=== PATIENT | female | born 1995 | race African-American/Black ===

== ENCOUNTER 2016-09-30 14:56 | Emergency (ER) | payer OTHER ==
[2016-09-30 15:05] VITALS: TEMP 102.8; BMI 24.7
--- NOTE | 2016-09-30 15:07 | PDOC ---
Rapid Medical Evaluation Chief Complaint: Headache Time Seen by Provider: 09/30/16 14:58 Medical Evaluation: Allergies Allergy/AdvReac Type Severity Reaction Status Date / Time No Known Allergies Allergy Verified 04/10/16 14:49 09/30/16 15:01 RME Note: I have performed a brief, in-person evaluation of this patient . This patient presents with CC: headache with nausea; x 1day; similar episodes with Blood clot in head x 1 year agho Pertinent PE findings are: 102.8 fever I have ordered: strep, influenza The patient will proceed to ED for further evaluation.
[2016-09-30 15:47] LABS: MCH 25.8 pg (25.7-33.7); MCHC 33.2 g/dl (32.0-36.0); MEAN CELL VOLUME 77.8 fl (80-96); MEAN PLT VOLUME 8.9 fl (7.5-11.1); NEUTROPHILS 89.7 % (42.8-82.8); PLATELET COUNT 250 K/MM3 (134-434); RDW 16.5 % (11.6-15.6); WHITE BLOOD COUNT 8.3 K/mm3 (4.0-10.0)
[2016-09-30] MEDS ORDERED: SODIUM CHLORIDE 1,000 ML IV STA ×2 (15:50→17:48)
[2016-09-30] MEDS ORDERED: ACETAMINOPHEN 1000 MG/100 ML VIAL (NON FORMULARY) IVPB ONE (15:50)
[2016-09-30] MEDS ORDERED: ACETAMINOPHEN INJECTION 100 ML IVPB ONE (16:02)
[2016-09-30 16:09] LABS: INR 1.23 (0.82-1.09); PROTHROMBIN TIME (PATIENT) 13.6 SEC (9.98-11.88)
[2016-09-30 16:11] LABS: ACTIVATED PTT 30.5 SECONDS (26.9-34.4); ALK PHOS 74 U/L (45-117)
--- NOTE | 2016-09-30 16:32 | PDOC ---
History of Present Illness - General History Source: Patient Exam Limitations: No Limitations - History of Present Illness Initial Comments: 09/30/16 16:27 21-year-old female presents to the ED with complaints of right flank pain yesterday now followed by a frontal headache and fever today. Patient also complaining of sore throat myalgia, and decreased appetite. Patient states 2 weeks ago took [id number] medication for urinary complaints and assumed that symptoms resolved but unsure since she's been having urinary frequency with suprapubic pressure. Patient also states was on blood thinners a few years ago secondary to a blood clot in her head which resolved with blood thinner. Timing/Duration: reports: constant Severity: Yes: moderate Presenting Symptoms: Yes: fever, sore throat, headache <Vickie Solis - Last Filed: 09/30/16 18:45> <Raleigh Westbrook - Last Filed: 09/30/16 19:13> - General Chief Complaint: Headache Stated Complaint: NAUSEA, FEVER, HEADACHE Time Seen by Provider: 09/30/16 14:58 Past History - Past History General Medical History: Yes: no pertinent history Immunization Status Up to Date: Yes - Social History Lives With: parents Smoking History: No Smoking Status: Never smoked Number of Cigarettes Smoked Per Day: 0 Drug Use: none <Vickie Solis - Last Filed: 09/30/16 18:45> <Raleigh Westbrook - Last Filed: 09/30/16 19:13> - Past History Allergies/Adverse Reactions: Allergies No Known Allergies Allergy (Verified 09/30/16 15:05) Home Medications: Ambulatory Orders Sulfamethoxazole/Trimethoprim [Bactrim Ds -] 1 tab PO BID #14 tablet 09/30/16 Review of Systems - Review of Systems Able to Perform ROS?: Yes Constitutional: Yes: Chills, Fever HEENTM: Yes: Throat Pain Respiratory: No: Symptoms reported Cardiac (ROS): No: Symptoms Reported ABD/GI: No: Symptoms Reported : Yes: Dysuria, Flank Pain Musculoskeletal: Yes: Joint Pain, Muscle Pain Integumentary: No: Symptoms Reported Neurological: Yes: Headache (frontal) <Vickie Solis - Last Filed: 09/30/16 18:45> *Physical Exam - Vital Signs Last Vital Signs Temp Pulse Resp BP Pulse Ox 102.8 F H 18 L 17 133/80 98 09/30/16 15:00 09/30/16 15:00 09/30/16 15:00 09/30/16 15:00 09/30/16 15:00 - Physical Exam General Appearance: Yes: Nourished, Appropriately Dressed. No: Apparent Distress HEENT: positive: EOMI, OSCAR, TMs Normal, Pharynx Normal. negative: Pale Conjunctivae Neck: positive: Normal Thyroid, Supple. negative: Tender, Decreased range of motion, Rigidity Respiratory/Chest: positive: Lungs Clear, Normal Breath Sounds. negative: Respiratory Distress, Accessory Muscle Use Cardiovascular: positive: Regular Rhythm, Tachycardia. negative: Murmur Gastrointestinal/Abdominal: positive: Soft, Tenderness (flank right) Musculoskeletal: positive: CVA Tenderness (R) ( I'll) Integumentary: positive: Normal Color, Warm, Moist Neurologic: positive: Normal Mood/Affect, Motor Strength 5/5 (ambulatory) <Vickie Solis - Last Filed: 09/30/16 18:45> - Vital Signs Last Vital Signs Temp Pulse Resp BP Pulse Ox 102.8 F H 110 H 18 142/92 100 09/30/16 15:00 09/30/16 17:46 09/30/16 17:46 09/30/16 17:46 09/30/16 17:46 <Raleigh Westbrook - Last Filed: 09/30/16 19:13> ED Treatment Course - LABORATORY CBC & Chemistry Diagram: 09/30/16 15:40 09/30/16 15:40 - ADDITIONAL ORDERS Additional order review: 09/30/16 15:40 Group A Strep Rapid Antigen - Final Throat 09/30/16 15:40 RBC 5.07 D MCV 77.8 L MCHC 33.2 RDW 16.5 H MPV 8.9 Neutrophils % 89.7 H Lymphocytes % 5.7 L D Monocytes % 4.6 Eosinophils % 0.0 Basophils % 0.0 - Medications Given in the ED: ED Medications Discontinued Medications Generic Name Dose Route Start Last Admin Trade Name Jeffq PRN Reason Stop Dose Admin Acetaminophen 1,000 mg 09/30/16 15:50 09/30/16 16:10 Ofirmev Injection - IVPB 09/30/16 15:51 1,000 mg ONCE ONE Administration <Vickie Solis - Last Filed: 09/30/16 18:45> - LABORATORY CBC & Chemistry Diagram: 09/30/16 15:40 09/30/16 15:40 - ADDITIONAL ORDERS Additional order review: Laboratory Results 09/30/16 09/30/16 09/30/16 16:10 15:40 15:40 INR PTT (Actin FS) Sodium 139 Potassium 3.6 Chloride 103 Carbon Dioxide 27 Anion Gap 9 BUN 8 D Creatinine 0.9 D Creat Clearance w eGFR > 60 Random Glucose 83 D Lactic Acid 1.144 Calcium 9.1 Total Bilirubin 2.0 H D AST 12 L D ALT 17 D Alkaline Phosphatase 74 D Total Protein 8.2 D Albumin 4.2 D Urine Color Dkyellow Urine Appearance Cloudy Urine pH 5.0 Ur Specific [place] 1.015 Urine Protein Negative Urine Glucose (UA) Negative Urine Ketones Negative Urine Blood 2+ H Urine Nitrite Positive Urine Bilirubin Negative Urine Urobilinogen Negative Ur Leukocyte Esterase 1+ H Urine RBC 80 Urine WBC 70 Ur Epithelial Cells Moderate Urine Bacteria Rare Urine Mucus Rare Urine HCG, Qual Negative 09/30/16 15:40 INR 1.23 H PTT (Actin FS) 30.5 Sodium Potassium Chloride Carbon Dioxide Anion Gap BUN Creatinine Creat Clearance w eGFR Random Glucose Lactic Acid Calcium Total Bilirubin AST ALT Alkaline Phosphatase Total Protein Albumin Urine Color Urine Appearance Urine pH Ur Specific [place] Urine Protein Urine Glucose (UA) Urine Ketones Urine Blood Urine Nitrite Urine Bilirubin Urine Urobilinogen Ur Leukocyte Esterase Urine RBC Urine WBC Ur Epithelial Cells Urine Bacteria Urine Mucus Urine HCG, Qual 09/30/16 15:40 Influenza Types A,B Antigen (PARMINDER) - Final Nasopharyngeal Swab - Final 09/30/16 15:40 Group A Strep Rapid Antigen - Final Throat 09/30/16 15:40 RBC 5.07 D MCV 77.8 L MCHC 33.2 RDW 16.5 H MPV 8.9 Neutrophils % 89.7 H Lymphocytes % 5.7 L D Monocytes % 4.6 Eosinophils % 0.0 Basophils % 0.0 - Medications Given in the ED: ED Medications Discontinued Medications Generic Name Dose Route Start Last Admin Trade Name Freq PRN Reason Stop Dose Admin Acetaminophen 1,000 mg 09/30/16 15:50 09/30/16 16:10 Ofirmev Injection - IVPB 09/30/16 15:51 1,000 mg ONCE ONE Administration Sodium Chloride 1,000 mls @ 1,000 mls/hr 09/30/16 15:50 09/30/16 16:10 Normal Saline - IV 09/30/16 16:49 1,000 mls/hr ASDIR STA Administration Sodium Chloride 1,000 mls @ 1,000 mls/hr 09/30/16 17:48 09/30/16 17:54 Normal Saline - IV 09/30/16 18:47 1,000 mls/hr ASDIR STA Administration Ibuprofen 600 mg 09/30/16 17:47 09/30/16 17:54 Motrin - PO 09/30/16 17:48 600 mg ONCE ONE Administration <GabRaleigh godinez - Last Filed: 09/30/16 19:13> Medical Decision Making - Medical Decision Making 09/30/16 16:33 Patient with complaints of frontal headache, flank pain, dysuria, and fever since yesterday. Patient on exam had no acute findings except for old right flank and right CVA pain. Patient in for labs, urine, rapid strep and influenza testing. Patient also ordered for IV Tylenol and IV fluids. 09/30/16 18:22 Laboratory Tests 09/30/16 09/30/16 09/30/16 15:40 15:40 15:40 WBC 8.3 D Hgb 13.1 D Hct 39.4 D Neutrophils % 89.7 H Monocytes % 4.6 INR 1.23 H Sodium 139 Potassium 3.6 Chloride 103 Carbon Dioxide 27 Anion Gap 9 BUN 8 D Creatinine 0.9 D Creat Clearance w eGFR > 60 Random Glucose 83 D Lactic Acid Calcium 9.1 Total Bilirubin 2.0 H D AST 12 L D Albumin 4.2 D Urine Color Urine Appearance Urine pH Ur Specific [place] Urine Protein Urine Glucose (UA) Urine Ketones Urine Blood Urine Nitrite Urine Bilirubin Ur Leukocyte Esterase Urine HCG, Qual 09/30/16 09/30/16 15:40 16:10 WBC Hgb Hct Neutrophils % Monocytes % INR Sodium Potassium Chloride Carbon Dioxide Anion Gap BUN Creatinine Creat Clearance w eGFR Random Glucose Lactic Acid 1.144 Calcium Total Bilirubin AST Albumin Urine Color Pending Urine Appearance Pending Urine pH Pending Ur Specific [place] Pending Urine Protein Pending Urine Glucose (UA) Pending Urine Ketones Pending Urine Blood Pending Urine Nitrite Pending Urine Bilirubin Pending Ur Leukocyte Esterase Pending Urine HCG, Qual Negative Rapid strep negative, influenza negative. Urine pending. Patient states feeling much better. Patient's repeat temperature an hour ago was 100.0. Patient ordered for a second bag of IV fluid and 600 mg of Motrin. 09/30/16 18:44 Laboratory Tests 09/30/16 15:40 Urine Nitrite Positive Ur Leukocyte Esterase 1+ H 09/30/16 18:45 Patient had sensitivity to Bactrim secondary to proteus Mirabilis noted in 2012. Patient will be given Bactrim for treatment of pyelonephritis. awaiting repeat vitals <Vickie Solis - Last Filed: 09/30/16 18:45> *DC/Admit/Observation/Transfer <Vickie Solis - Last Filed: 09/30/16 18:45> <Raleigh Westbrook - Last Filed: 09/30/16 19:13> Diagnosis at time of Disposition: Fever and chills, Pyelonephritis - Discharge Dispostion Disposition: HOME Condition at time of disposition: Good - Prescriptions Prescriptions: Sulfamethoxazole/Trimethoprim [Bactrim Ds -] 1 tab PO BID #14 tablet - Patient Instructions Printed Discharge Instructions: DI for Kidney Infection Additional Instructions: Please take Bactrim as prescribed until completed. Please drink plenty of fluids. Please follow-up with your primary care physician as needed . otherwise return to ED if symptoms worsen
[2016-09-30 16:36] LABS: CREATININE 0.9 mg/dL (0.55-1.02); GLUCOSE,RANDOM 83 mg/dL (74-106)
[2016-09-30 16:37] LABS: ANION GAP 9 (8-16); CALCIUM 9.1 mg/dL (8.5-10.1); CO2 27 mmol/L (21-32); TOT PROT 8.2 g/dl (6.4-8.2)
[2016-09-30 16:38] LABS: ALBUMIN 4.2 g/dl (3.4-5.0); SGOT/AST 12 U/L (15-37); SGPT/ALT 17 U/L (12-78)
[2016-09-30 17:47] VITALS: BP 142/92
[2016-09-30] MEDS ORDERED: IBUPROFEN 600 MG TABLET (FP) PO ONE ×2 (17:47→17:50)
[2016-09-30 18:38] LABS: URINE APPEARANCE CLOUDY; URINE BILIRUBIN NEGATIVE (NEGATIVE); URINE COLOR DKYELLOW; URINE GLUCOSE (UA) NEGATIVE (NEGATIVE); URINE KETONE NEGATIVE (NEGATIVE); URINE NITRITE POSITIVE (NEGATIVE); URINE PROTEIN NEGATIVE (NEGATIVE); URINE UROBILINOGEN NEGATIVE E.U./dl (0.2-1.0)
[2016-09-30 18:42] LABS: URINE BLOOD 2+ (NEGATIVE); URINE LEUK ESTERASE 1+ (NEGATIVE)
[2016-09-30 18:53] LABS: URINE BACTERIA RARE /hpf (NONE SEEN); URINE MUCUS RARE; URINE RBC 80 /hpf (0-3); URINE WBC 70 /hpf (3-5)
[2016-09-30 19:55] VITALS: PULSE 92
== END 2016-09-30 19:55 | disposition home or self-care (01) ==
LOC: JER 14:56
PROC: 3E0337Z Introduction of Electrolytic and Water Balance Substance into Peripheral Vein, Percutaneous Approach (ICD-10-PCS; principal; 2016-09-30)
PROC: 3E033NZ Introduction of Analgesics, Hypnotics, Sedatives into Peripheral Vein, Percutaneous Approach (ICD-10-PCS; 2016-09-30)
DX: N10 Acute pyelonephritis (principal)
CPT/HCPCS: 36415; 80053; 81003; 81015; 83605; 84703; 85025; 85610; 85730; 87070; 87430; 87804; 99284-25

== ENCOUNTER 2017-06-15 19:32 | Emergency (ER) | payer OTHER ==
[2017-06-15 19:55] VITALS: TEMP 99.1; BMI 27.1
--- NOTE | 2017-06-15 19:56 | PDOC ---
Rapid Medical Evaluation Chief Complaint: Nausea/Vomiting Time Seen by Provider: 06/15/17 19:49 Medical Evaluation: Allergies Allergy/AdvReac Type Severity Reaction Status Date / Time No Known Allergies Allergy Verified 05/20/17 17:58 06/15/17 19:49 I have performed a brief in-person evaluation of this patient. The patient presents with a chief complaint of: 3 month w/ vomiting Pertinent physical exam findings: none. I have ordered the following: cbc, cmp, type & screen, urinalysis, Beta-Hcg, Urine culture. Trans vag Ultrasound The patient will proceed to the ED for further evaluation [id number] (1 set of twins).
[2017-06-15 20:12] LABS: BASOPHIL 0.2 % (0-2.0); MCH 26.2 pg (25.7-33.7); MEAN CELL VOLUME 79.3 fl (80-96); MEAN PLT VOLUME 8.3 fl (7.5-11.1); PLATELET COUNT 267 K/MM3 (134-434); RDW 14.3 % (11.6-15.6); WHITE BLOOD COUNT 10.5 K/mm3 (4.0-10.0)
[2017-06-15 20:27] LABS: INR 1.1 (0.82-1.09); PROTHROMBIN TIME (PATIENT) 12.4 SEC (9.98-11.88)
[2017-06-15 20:35] LABS: ANION GAP 9 (8-16); BILIRUBIN,TOTAL 1.3 mg/dL (0.2-1.0); CALCIUM 9.1 mg/dL (8.5-10.1); CO2 25 mmol/L (21-32); CREATININE 0.7 mg/dL (0.55-1.02); GLUCOSE,RANDOM 79 mg/dL (74-106); SGOT/AST 11 U/L (15-37); SGPT/ALT 19 U/L (12-78); TOT PROT 8.7 g/dl (6.4-8.2)
[2017-06-15 20:37] LABS: ALK PHOS 68 U/L (45-117)
--- NOTE | 2017-06-15 22:08 | PDOC ---
History of Present Illness - General History Source: Patient Exam Limitations: No Limitations - History of Present Illness Initial Comments: 06/15/17 22:52 The patient is a 22 year old female who is currently 3 months , a0 ( one twin gestation) with a significant past medical history asthma and blood clot (brain)(was on blood thinners for a while but has since discontinued), who presents to the emergency department with abdominal pain, constipation, nausea and vomiting for the past 4 days. She describes her pain as ranging from mild to moderate, localized in the suprapubic region, without radiation. She notes that the pain is exacerbated when the area is palpated. She describes her vomit as nonbloody and nonbilious. The patient denies chest pain, shortness of breath, headache and dizziness. Denies fever or chills. Denies dysuria, frequency, urgency and hematuria. Allergies: None Past surgical history: None reported Social history: No alcohol, tobacco or drug use reported <Maxi Landrum - Last Filed: 06/16/17 01:53> <Ryan Douglas - Last Filed: 06/16/17 02:18> - General Chief Complaint: Nausea/Vomiting Stated Complaint: FATIGUE Time Seen by Provider: 06/15/17 19:49 Past History <Maxi Landrum - Last Filed: 06/16/17 01:53> - Past Medical History Asthma: Yes COPD: No - Reproductive History (#): 3 Para: 5 Cervical CA: No Dysfunctional Uterine Bleeding: No Ectopic : No Endometrial CA: No Polycystic Ovaries: No Therapeutic (s) & number: No (denies) Tubal Ligation: No - Immunization History Immunization Up to Date: Yes - Suicide/Smoking/Psychosocial Hx Smoking Status: No Smoking History: Never smoked Have you smoked in the past 12 months: No Number of Cigarettes Smoked Daily: 0 Information on smoking cessation initiated: No Hx Alcohol Use: No Drug/Substance Use Hx: No Substance Use Type: None Hx Substance Use Treatment: No <Ryan Douglas - Last Filed: 06/16/17 02:18> - Past Medical History Allergies/Adverse Reactions: Allergies Allergy/AdvReac Type Severity Reaction Status Date / Time No Known Allergies Allergy Verified 06/15/17 19:52 Home Medications: Ambulatory Orders Ondansetron [Zofran Odt -] 4 mg SL TID #21 od.tablet 06/16/17 Review of Systems - Review of Systems Able to Perform ROS?: Yes Comments:: 06/15/17 22:53 CONSTITUTIONAL: No fever, no chills, no fatigue EYES: No visual changes ENT: No ear pain, no sore throat CARDIOVASCULAR: No chest pain, no palpitations RESPIRATORY: No cough, no SOB GI: (+) Abdominal pain, nausea, vomiting, constipation. No diarrhea GENITOURINARY: No dysuria, no frequency, no hematuria MUSKULOSKELETAL: No backpain, no joint pain, no myalgias SKIN: No rash NEURO: No headache <Maxi Landrum - Last Filed: 06/16/17 01:53> *Physical Exam - Vital Signs Last Vital Signs Temp Pulse Resp BP Pulse Ox 99.1 F 114 H 20 136/101 100 06/15/17 19:52 06/15/17 19:52 06/15/17 19:52 06/15/17 19:52 06/15/17 19:52 - Physical Exam Comments: 06/15/17 22:53 CONSTITUTIONAL: Well-appearing; well-nourished; in no apparent distress HEAD: Normocephalic; atraumatic EYES: PERRL; EOM intact ENMT: External appears normal; normal oropharynx. (+) Dry Mucosa NECK: Supple; non-tender; no cervical lymphadenopathy CARD: Normal S1, S2; no murmurs, rubs, or gallops RESP: Normal chest excursion with respiration; breath sounds clear and equal bilaterally; no wheezes, rhonchi, or rales ABD: (+) Moderate epigastric tenderness to palpation, mild bilateral lower quadrant tenderness to palpation. Soft, non-distended; no palpable organomegaly , no palpable hernias EXT: Normal ROM in all four extremities; non-tender to palpation; distal pulses intact SKIN: Warm, dry, no rash NEURO: No focal neurological deficie <Maxi Landrum - Last Filed: 06/16/17 01:53> - Vital Signs Last Vital Signs Temp Pulse Resp BP Pulse Ox 99.1 F 114 H 20 136/101 100 06/15/17 19:52 06/15/17 19:52 06/15/17 19:52 06/15/17 19:52 06/15/17 19:52 <Misael,Boris - Last Filed: 06/16/17 02:18> ED Treatment Course - LABORATORY CBC & Chemistry Diagram: 06/15/17 20:00 06/15/17 20:00 - ADDITIONAL ORDERS Additional order review: Laboratory Results 06/15/17 06/15/17 06/15/17 22:11 20:00 20:00 PT with INR 12.40 H INR 1.10 Sodium Potassium Chloride Carbon Dioxide Anion Gap BUN Creatinine Creat Clearance w eGFR Random Glucose Calcium Total Bilirubin AST ALT Alkaline Phosphatase Total Protein Albumin Beta HCG, Quant Urine Color Yellow Urine Appearance Slcloudy Urine pH 5.0 Ur Specific [place] 1.028 Urine Protein 1+ H Urine Glucose (UA) Negative Urine Ketones 2+ H Urine Blood Negative Urine Nitrite Negative Urine Bilirubin Negative Urine Urobilinogen Negative Urine WBC (Auto) 10 Urine RBC (Auto) 1 Ur Epithelial Cells Rare Urine Bacteria Rare Urine Mucus Few Blood Type O POSITIVE Antibody Screen Negative 06/15/17 20:00 PT with INR INR Sodium 137 Potassium 3.7 Chloride 103 Carbon Dioxide 25 Anion Gap 9 BUN 8 Creatinine 0.7 D Creat Clearance w eGFR > 60 Random Glucose 79 Calcium 9.1 Total Bilirubin 1.3 H D AST 11 L ALT 19 Alkaline Phosphatase 68 Total Protein 8.7 H Albumin 4.0 Beta HCG, Quant 391177.9 Urine Color Urine Appearance Urine pH Ur Specific [place] Urine Protein Urine Glucose (UA) Urine Ketones Urine Blood Urine Nitrite Urine Bilirubin Urine Urobilinogen Urine WBC (Auto) Urine RBC (Auto) Ur Epithelial Cells Urine Bacteria Urine Mucus Blood Type Antibody Screen 06/15/17 20:00 RBC 4.88 MCV 79.3 L MCHC 33.0 RDW 14.3 D MPV 8.3 Neutrophils % 91.0 H Lymphocytes % 5.2 L Monocytes % 3.6 L Eosinophils % 0.0 Basophils % 0.2 D <Maxi Landrum - Last Filed: 06/16/17 01:53> - LABORATORY CBC & Chemistry Diagram: 06/15/17 20:00 06/15/17 20:00 - ADDITIONAL ORDERS Additional order review: Laboratory Results 06/15/17 06/15/17 06/15/17 20:00 20:00 20:00 PT with INR 12.40 H INR 1.10 Sodium 137 Potassium 3.7 Chloride 103 Carbon Dioxide 25 Anion Gap 9 BUN 8 Creatinine 0.7 D Creat Clearance w eGFR > 60 Random Glucose 79 Calcium 9.1 Total Bilirubin 1.3 H D AST 11 L ALT 19 Alkaline Phosphatase 68 Total Protein 8.7 H Albumin 4.0 Beta HCG, Quant 776077.9 Blood Type O POSITIVE Antibody Screen Negative 06/15/17 20:00 RBC 4.88 MCV 79.3 L MCHC 33.0 RDW 14.3 D MPV 8.3 Neutrophils % 91.0 H Lymphocytes % 5.2 L Monocytes % 3.6 L Eosinophils % 0.0 Basophils % 0.2 D <Ryan Douglas - Last Filed: 06/16/17 02:18> Progress Note - Progress Note Progress Note: The patient was able to tolerate PO intake (Water) at 1:45am <Maxi Landrum - Last Filed: 06/16/17 01:53> Medical Decision Making - Medical Decision Making 06/16/17 01:46 Patient is a 22-year-old female, 5 para 5, 12 weeks gestation who presents to the ER with numerous episodes of nonbloody, nonbilious vomiting and abdominal pain. Serial abdominal exams reveal left lower quadrant and suprapubic tenderness only. There is no tenderness at McBurney's point, psoas and obturator signs are negative. CBC is within normal limit. CMP reveals moderately low magnesium likely related to hyperemesis. Obstetric ultrasound reveals an IUP with FH and a small left corpus luteum cyst. Subchorionic hemorrhage is also noted. Patient is received IV fluids, H2 briana and antiemetic therapy with improvement in level of her symptoms. We'll continue to hydrate. Likely discharge. 06/16/17 02:16 pt mindi po liquids. i do not suspect acute appi. will d/c. <Ryan Douglas - Last Filed: 06/16/17 02:18> *DC/Admit/Observation/Transfer - Attestations Scribe Attestion: 06/15/17 22:53 Documentation prepared by Maxi Landrum, acting as medical imaging technologist for Ryan Douglas MD <Maxi Landrum - Last Filed: 06/16/17 01:53> - Attestations Physician Attestion: 06/16/17 01:46 The documentation was prepared by the scribe under my direct supervision. I have reviewed the documentation which correctly represents the findings, medical decision-making and critical action taken by me. <Ryan Douglas - Last Filed: 06/16/17 02:18> Diagnosis at time of Disposition: Vomiting during , Abdominal pain affecting - Discharge Dispostion Disposition: HOME Condition at time of disposition: Stable - Patient Instructions Printed Discharge Instructions: DI for Nausea -- Adult, DI for Vomiting -- Adult, DI for Abdominal Pain -- Early
[2017-06-15 22:22] LABS: URINE APPEARANCE SLCLOUDY; URINE BILIRUBIN NEGATIVE (NEGATIVE); URINE BLOOD NEGATIVE (NEGATIVE); URINE COLOR YELLOW; URINE GLUCOSE (UA) NEGATIVE (NEGATIVE); URINE KETONE 2+ (NEGATIVE); URINE NITRITE NEGATIVE (NEGATIVE); URINE UROBILINOGEN NEGATIVE mg/dL (0.2-1.0)
[2017-06-15] MEDS ORDERED: ONDANSETRON 4 MG/2 ML VIAL IVPB ONE (22:23)
[2017-06-15] MEDS ORDERED: FAMOTIDINE IV 20 MG/12 ML VIAL IVPB ONE (22:23)
[2017-06-15] MEDS ORDERED: DEXTROSE 5%-NORMAL SALINE 1,000 ML IV SCH (22:30)
[2017-06-15 22:34] LABS: URINE PROTEIN 1+ (NEGATIVE)
[2017-06-15 22:44] LABS: URINE BACTERIA RARE /hpf (NONE SEEN); URINE MUCUS FEW; URINE RBC 1 /hpf (0-3); URINE WBC 10 /hpf (3-5)
[2017-06-15] MEDS ORDERED: ONDANSETRON 4 MG/2 ML VIAL ONE (23:21)
[2017-06-15] MEDS ORDERED: FAMOTIDINE 20 MG/50 ML IVPB 20 MG/50 ML MG IVPB ONE (23:21)
[2017-06-16] MEDS ORDERED: MAGNESIUM SULF 50% (8.12 MEQ/2 ML-1 GM VIAL) IVPB ONE (00:16)
[2017-06-16] MEDS ORDERED: ACETAMINOPHEN 325 MG TABLET (FP) PO ONE (01:45)
[2017-06-16] MEDS ORDERED: DEXTROSE 5%-WATER - 1,000 ML IV SCH (02:00)
[2017-06-16 02:54] VITALS: BP 116/62; PULSE 91
[2017-06-16] MEDS ORDERED: ACETAMINOPHEN 325 MG TABLET (FP) ONE (03:10)
[2017-06-16] MEDS ORDERED: METOCLOPRAMIDE HCL INJECTION 10 MG/2 ML VIAL IVPUSH ONE (04:11)
[2017-06-16] MEDS ORDERED: TRIMETHOBENZAMIDE HCL 300 MG CAPSULE PO ONE (05:42)
[2017-06-16 13:20] LABS: URINE LEUK ESTERASE Negative (NEGATIVE)
== END 2017-06-16 06:36 | disposition home or self-care (01) ==
LOC: JER 19:32
PROC: 3E0337Z Introduction of Electrolytic and Water Balance Substance into Peripheral Vein, Percutaneous Approach (ICD-10-PCS; principal; 2017-06-15)
PROC: 3E033GC Introduction of Other Therapeutic Substance into Peripheral Vein, Percutaneous Approach (ICD-10-PCS; 2017-06-15)
PROC: 3E033GC Introduction of Other Therapeutic Substance into Peripheral Vein, Percutaneous Approach (ICD-10-PCS; 2017-06-15)
DX: O26.891 Other specified pregnancy related conditions, first trimester (principal); O21.0 Mild hyperemesis gravidarum; Z3A.12 12 weeks gestation of pregnancy
CPT/HCPCS: 36415; 76801-TC; 80053; 81003; 81015; 83735; 84702; 85025; 85610; 86850; 86900; 86901; 87086; 99284-25

== ENCOUNTER 2017-08-03 23:37 | Emergency (ER) | payer OTHER ==
[2017-08-04 00:06] VITALS: BP 111/71; PULSE 89; TEMP 98.2; BMI 23.0
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
[2017-08-04 03:07] LABS: URINE APPEARANCE CLEAR; URINE BILIRUBIN NEGATIVE (NEGATIVE); URINE BLOOD NEGATIVE (NEGATIVE); URINE COLOR YELLOW; URINE GLUCOSE (UA) NEGATIVE (NEGATIVE); URINE KETONE 2+ (NEGATIVE); URINE NITRITE NEGATIVE (NEGATIVE); URINE PROTEIN TRACE (NEGATIVE); URINE UROBILINOGEN 0.2 mg/dL (0.2-1.0)
[2017-08-04 03:36] LABS: URINE LEUK ESTERASE TRACE (NEGATIVE)
[2017-08-04 03:43] LABS: URINE BACTERIA FEW /hpf (NONE SEEN)
[2017-08-04 04:06] LABS: EPI CELLS MODERATE /HPF (FEW)
== END 2017-08-04 03:53 | disposition home or self-care (01) ==
LOC: JER 23:37
DX: O26.892 Other specified pregnancy related conditions, second trimester (principal); O44.52 Low lying placenta with hemorrhage, second trimester; Z3A.16 16 weeks gestation of pregnancy; Y04.2XXA Assault by strike against or bumped into by another person, initial encounter; Y93.89 Activity, other specified; Y92.89 Other specified places as the place of occurrence of the external cause; Y07.9 Unspecified perpetrator of maltreatment and neglect
CPT/HCPCS: 76801-TC; 81003; 81015; 87086; 99281-25

== ENCOUNTER 2017-11-28 13:00 | Inpatient (IN) | payer OTHER ==
[2017-11-28] MEDS ORDERED: AMPICILLIN SODIUM 2 GM VIAL ONE (13:43)
[2017-11-28 14:06] LABS: URINE APPEARANCE CLEAR; URINE BILIRUBIN NEGATIVE (<2.0 mg/dL); URINE BLOOD NEGATIVE (NEGATIVE); URINE COLOR YELLOW; URINE GLUCOSE (UA) NEGATIVE (NEGATIVE); URINE KETONE 1+ (NEGATIVE); URINE NITRITE NEGATIVE (NEGATIVE); URINE PROTEIN NEGATIVE (NEGATIVE)
[2017-11-28 14:22] LABS: URINE LEUK ESTERASE 1+ (NEGATIVE)
[2017-11-28 14:23] LABS: EPI CELLS RARE /HPF (FEW); URINE BACTERIA RARE /hpf (NONE SEEN); URINE MUCUS RARE
[2017-11-28 14:24] LABS: EOS % 0.1 % (0-4.5); HEMATOCRIT 35.9 % (32.4-45.2); HEMOGLOBIN 11.9 GM/dL (10.7-15.3); LYMPH % 5.8 % (8-40); MCH 27.1 pg (25.7-33.7); MEAN CELL VOLUME 81.9 fl (80-96); MEAN PLT VOLUME 9.3 fl (7.5-11.1); MONO % 4.6 % (3.8-10.2); NEUT % 89.5 % (42.8-82.8); PLATELET COUNT 178 K/MM3 (134-434); RBC 4.39 M/mm3 (3.60-5.2); RDW 14.6 % (11.6-15.6); WHITE BLOOD COUNT 8.3 K/mm3 (4.0-10.0)
[2017-11-28 14:35] VITALS: BMI 32.9
[2017-11-28 14:43] LABS: INR 0.98 (0.82-1.09); PROTHROMBIN TIME (PATIENT) 11.1 SEC (9.7-13.0)
[2017-11-28] MEDS ORDERED: IBUPROFEN 800 MG/8 ML IJ IVPB PRN (14:43)
[2017-11-28] MEDS ORDERED: oxyCODONE HCL 5 MG TABLET PO PRN (14:43)
[2017-11-28] MEDS ORDERED: SENNOSIDES/DOCUSATE COMBO (SENNA PLUS) TABLET (UD) PO PRN (14:43)
[2017-11-28] MEDS ORDERED: METHYLERGONOVINE MALEATE 0.2 MG/1 ML AMP IM PRN (14:43)
--- NOTE | 2017-11-28 14:43 | HP ---
Past Medical History - Admission Chief Complaint: leaking fluid, contractions History of Present Illness: 22 y/o female with h/o X 3 and h/o X 1 at 27 weeks for twins who presents today with complaints of leaking fluid and pt having contractions upon admission. Pt has a history of non comlpiance with care. Denies any VB. +FM. History Source: Patient, Medical Record Limitations to Obtaining History: No Limitations - Past Medical History Cardiovascular: No: HTN Pulmonary: No: Asthma, COPD Hepatobiliary: No: Hepatitis B, Hepatitis C ...: 5 ...Para: 5 ...Term: 4 ...: 1 ...Spon : 0 ...Induced : 0 ...Multiple Gestation: 0 ...EDC by Tonyo: 01/04/18 Additional OB History: h/o c section at 27 weeks for twins Heme/Onc: Yes: Anemia Infectious Disease: No: HIV, MRSA Endocrine: No: Diabetes Mellitus - Past Surgical History Past Surgical History: Yes: Hx Myomectomy: No Hx Transabdominal Cerclage: No - Smoking History Smoking history: Never smoked Have you smoked in the past 12 months: No Aproximately how many cigarettes per day: 0 - Alcohol/Substance Use Hx Alcohol Use: No - Social History Usual Living Arrangement: Yes: With Significant Other History of Recent Travel: No Home Medications - Allergies Allergies/Adverse Reactions: Allergies Allergy/AdvReac Type Severity Reaction Status Date / Time No Known Allergies Allergy Verified 11/28/17 14:42 - Home Medications Home Medications: Ambulatory Orders Ferrous Sulfate 325 mg PO DAILY 10/20/17 Vit Calc,Iron,Folic [ Vitamins] 1 each PO DAILY 10/20/17 Ibuprofen [Motrin -] 600 mg PO QID PRN #28 tablet 11/30/17 Oxycodone HCl/Acetaminophen [Percocet 5-325 mg Tablet -] 1 tab PO Q4H #20 tablet MDD 6 11/30/17 Review of Systems - Review of Systems Constitutional: reports: No Symptoms Eyes: reports: No Symptoms HENT: reports: No Symptoms Neck: reports: No Symptoms Cardiovascular: reports: No Symptoms Respiratory: reports: No Symptoms Gastrointestinal: reports: No Symptoms Genitourinary: reports: No Symptoms Breasts: reports: No Symptoms Reported Musculoskeletal: reports: No Symptoms Integumentary: reports: No Symptoms Neurological: reports: No Symptoms Endocrine: reports: No Symptoms Hematology/Lymphatic: reports: No Symptoms Psychiatric: reports: No Symptoms Physical Exam - Maternity Vital Signs: Vital Signs Temperature 98.1 F 11/28/17 14:11 Pulse Rate 102 H 11/28/17 14:11 Respiratory Rate 18 11/28/17 14:11 Blood Pressure 137/68 11/28/17 14:11 O2 Sat by Pulse Oximetry (%) Constitutional: Yes: Well Nourished, No Distress, Calm Eyes: Yes: Conjunctiva Clear, EOM Intact HENT: Yes: Atraumatic, Normocephalic Neck: Yes: Supple, Trachea Midline Cardiovascular: Yes: Regular Rate and Rhythm Lungs: Clear to auscultation - Abdominal Exam/OB Number of Fetuses: Single Presentation: Vertex Contractions: Yes Regularity: Regular Heart Rate (range): 135 - Vaginal Exam/OB Vaginal Bleediing: No Dilatation (cm): 3 Amniotic Membrane Status: Ruptured Presentation: Vertex/Position - Labs Lab Results: CBC, BMP 11/28/17 13:55 Hemorrhage Risk Assessment - Risk Factors Medium Risk Factors: Yes: Prior , uterine surgery,or multiple laparotomies High Risk Factors: Yes: None Risk Score: 1 Risk Level: Medium Risk Problem List - Problems (1) delivery delivered Code(s): O82 - ENCOUNTER FOR DELIVERY WITHOUT INDICATION (2) labor in third trimester with delivery Code(s): O60.14X0 - LABOR THIRD TRI W DELIVERY THIRD TRI, UNSP Assessment/Plan previous c section in labor/SROM for repeat delivery discussed risks/benefits/alternatives including with pt pt agrees to repeat delivery possible history of "clot in brain?" - thought there was sinus venous thrombosis which seemed to be an "artifact" on imaging - unclear on prior imaging/history - will give lovenox post anesthesia/nursery aware
[2017-11-28 14:46] LABS: ACTIVATED PTT 27.2 SECONDS (26.9-34.4)
[2017-11-28] MEDS ORDERED: ONDANSETRON 4 MG/2 ML VIAL IVPUSH PRN (14:47)
[2017-11-28 14:49] LABS: ANION GAP 9 (8-16); BLOOD UREA NITROGEN 5 mg/dL (7-18); CALCIUM 8.3 mg/dL (8.5-10.1); CHLORIDE 106 mmol/L (98-107); CO2 24 mmol/L (21-32); CREATININE 0.5 mg/dL (0.55-1.02); GLUCOSE,RANDOM 65 mg/dL (74-106); POTASSIUM 3.6 mmol/L (3.5-5.1); SODIUM 139 mmol/L (136-145)
[2017-11-28] MEDS ORDERED: morphine SULFATE/Preservative Free 0.5 MG/ML (1cc Syringe) ONE (15:00)
[2017-11-28] MEDS ORDERED: ELECTROLYTE-148 SOLN 1,000 ML IV SCH (15:00)
[2017-11-28] MEDS ORDERED: OXYTOCIN 20 UNITS in 0.9% NS 20 UNIT/1,000 ML INFUS.BAG IV SCH (15:00)
[2017-11-28] MEDS ORDERED: CITRIC ACID/SODIUM CITRATE 30 ML UNIT-DOSE CUP PO ONE (15:00)
[2017-11-28] MEDS ORDERED: ePHEDrine SULFATE 50 MG/1 ML AMPULE ONE (15:01)
[2017-11-28] MEDS ORDERED: BUPIVACAINE 0.75% IN DEXTROSE/PF 2ML AMPULE NR ONE (15:04)
[2017-11-28] MEDS ORDERED: ceFAZolin SODIUM 1 GM VIAL ONE ×2 (15:21→20:48)
[2017-11-28] MEDS ORDERED: OXYTOCIN 10 UNITS/ML VIAL ONE (15:25)
[2017-11-28] MEDS ORDERED: OXYTOCIN 20 UNITS in 0.9% NS 20 UNIT/1,000 ML INFUS.BAG IV ONE (15:40)
[2017-11-28] MEDS ORDERED: MIDAZOLAM HCL 2 MG/2 ML SINGLE DOSE VIAL ONE (15:44)
--- NOTE | 2017-11-28 16:11 | OP ---
Operative Note - Note: Operative Date: 11/28/17 Pre-Operative Diagnosis: labor, PPROM, previous c section Operation: repeat LTCS Findings: normal b/l tubes and ovaries Post-Operative Diagnosis: Same as Pre-op Surgeon: Sammi Zhang Supervisor Yard: Bobby Knight Anesthesia: Spinal Specimens Removed: placenta Estimated Blood Loss (mls): 800 Operative Report Dictated: Yes
[2017-11-28] MEDS ORDERED: ACETAMINOPHEN 1000 MG/100 ML VIAL (NON FORMULARY) IVPB ONE ×3 (17:36→23:36)
[2017-11-28] MEDS ORDERED: ACETAMINOPHEN INJECTION 100 ML IVPB ONE (17:41)
[2017-11-28] MEDS ORDERED: TUBERCULIN PPD 5 TU/0.1ML SYRINGE (IN PATIENT USE ONLY) ID ONE (19:00)
[2017-11-28] MEDS ORDERED: DEXTROSE 5%-WATER - 50 ML IVPB ONE (20:48)
[2017-11-28 20:50] LABS: HEMATOCRIT 30.7 % (32.4-45.2); HEMOGLOBIN 10.1 GM/dL (10.7-15.3); LYMPH % 4.9 % (8-40); MEAN CELL VOLUME 81.6 fl (80-96); MEAN PLT VOLUME 9.6 fl (7.5-11.1); MONO % 6.5 % (3.8-10.2); NEUT % 88.6 % (42.8-82.8); PLATELET COUNT 176 K/MM3 (134-434); RBC 3.76 M/mm3 (3.60-5.2); RDW 14.5 % (11.6-15.6); WHITE BLOOD COUNT 7.4 K/mm3 (4.0-10.0)
[2017-11-28] MEDS: CEFAZOLIN 1 GM in DEXTROSE 5%-WATER - 50 ML IVPB SCH (20:55)
[2017-11-28 21:15] LABS: URINE APPEARANCE CLEAR; URINE BILIRUBIN NEGATIVE (<2.0 mg/dL); URINE BLOOD 1+ (NEGATIVE); URINE COLOR YELLOW; URINE GLUCOSE (UA) NEGATIVE (NEGATIVE); URINE KETONE 1+ (NEGATIVE); URINE LEUK ESTERASE NEGATIVE (NEGATIVE); URINE NITRITE NEGATIVE (NEGATIVE); URINE PROTEIN NEGATIVE (NEGATIVE); URINE UROBILINOGEN NEGATIVE mg/dL (0.2-1.0)
[2017-11-28 21:29] LABS: EPI CELLS RARE /HPF (FEW); URINE MUCUS RARE
[2017-11-29] MEDS ORDERED: DEXTROSE 5%-WATER - 50 ML IVPB ONE ×4 (04:52→17:08)
[2017-11-29] MEDS ORDERED: ceFAZolin SODIUM 1 GM VIAL ONE ×3 (04:52→17:08)
[2017-11-29] MEDS: CEFAZOLIN 1 GM in DEXTROSE 5%-WATER - 50 ML IVPB SCH ×3 (05:01→17:28)
[2017-11-29 08:58] LABS: BASO % 0.2 % (0-2.0); EOS % 0.1 % (0-4.5); HEMATOCRIT 29.1 % (32.4-45.2); HEMOGLOBIN 9.8 GM/dL (10.7-15.3); LYMPH % 10.2 % (8-40); MCH 27.6 pg (25.7-33.7); MCHC 33.7 g/dl (32.0-36.0); MEAN CELL VOLUME 81.8 fl (80-96); MEAN PLT VOLUME 9.9 fl (7.5-11.1); MONO % 7.6 % (3.8-10.2); NEUT % 81.9 % (42.8-82.8); PLATELET COUNT 142 K/MM3 (134-434); RBC 3.56 M/mm3 (3.60-5.2); RDW 14.5 % (11.6-15.6); WHITE BLOOD COUNT 8.6 K/mm3 (4.0-10.0)
--- NOTE | 2017-11-29 10:12 | PN ---
Post Progress Note - Subjective Subjective: 22 y/o POD #1 s/p repeat delivery for PPROM, labor and overnight with fevers Pt afebrile this a.m. Tolerating diet (clears) denies CP/SOB/F/C/MARTI today siddiqui catheter removed, no void or flatus yet Type of Delivery: Repeat C/S Vital Signs: Vital Signs Temperature 97.8 F 11/29/17 06:00 Pulse Rate 89 11/29/17 06:00 Respiratory Rate 18 11/29/17 09:00 Blood Pressure 111/58 11/29/17 06:00 O2 Sat by Pulse Oximetry (%) 100 11/28/17 17:15 Breast Exam: Yes: Soft Uterus: Yes: Fundus Firm Incision: Yes: Dressing dry and intact Abdomen/GI: Yes: Abdomen soft, Tolerating PO. No: Tender, Passing flatus Lochia: Yes: Rubra Lochia, amount: Small Extremities: Yes: Calves non-tender, Edema (trace edema b/l ) Perineum: Yes: Intact Activity: Ambulating - Labs Labs: CBC WBC 8.6 K/mm3 (4.0-10.0) 11/29/17 08:00 RBC 3.56 M/mm3 (3.60-5.2) L 11/29/17 08:00 Hgb 9.8 GM/dL (10.7-15.3) L 11/29/17 08:00 Hct 29.1 % (32.4-45.2) L 11/29/17 08:00 MCV 81.8 fl (80-96) 11/29/17 08:00 MCH 27.6 pg (25.7-33.7) 11/29/17 08:00 MCHC 33.7 g/dl (32.0-36.0) 11/29/17 08:00 RDW 14.5 % (11.6-15.6) 11/29/17 08:00 Plt Count 142 K/MM3 (134-434) 11/29/17 08:00 MPV 9.9 fl (7.5-11.1) 11/29/17 08:00 Neutrophils % 81.9 % (42.8-82.8) 11/29/17 08:00 Lymphocytes % 10.2 % (8-40) D 11/29/17 08:00 Monocytes % 7.6 % (3.8-10.2) 11/29/17 08:00 Eosinophils % 0.1 % (0-4.5) D 11/29/17 08:00 Basophils % 0.2 % (0-2.0) D 11/29/17 08:00 Problem List - Problems (1) delivery delivered Code(s): O82 - ENCOUNTER FOR DELIVERY WITHOUT INDICATION (2) labor in third trimester with delivery Code(s): O60.14X0 - LABOR THIRD TRI W DELIVERY THIRD TRI, UNSP Assessment/Plan POD #1 AFVSS this a.m. advance diet as tolerated start lovenox for VTE PPx encourage ambulation PO pain meds
[2017-11-29] MEDS: FERROUS SO4 325 MG TABLET (FP) PO SCH (10:16)
[2017-11-29] MEDS: IBUPROFEN 600 MG TABLET (FP) PO PRN ×2 (11:16→19:46)
[2017-11-29] MEDS: ACETAMINOPHEN 325 MG TABLET (FP) PO PRN ×2 (11:17→19:49)
[2017-11-29] MEDS: SIMETHICONE 80 MG TAB.CHEW (FP) PO PRN ×2 (11:17→19:45)
[2017-11-29] MEDS ORDERED: DIPHTH,PERTUSS(ACELL),TET 0.5 ML DISP.SYRIN IM ONE (14:00)
[2017-11-29] MEDS ORDERED: BISACODYL 10 MG SUPP.RECT RC PRN (14:43)
--- NOTE | 2017-11-29 14:43 | PN ---
Progress Note, Physician Chief Complaint: Pt. ambulating and voiding, pain controlled, no anesthesia complaints. - Current Medication List Current Medications: Active Medications Acetaminophen (Tylenol -) 650 mg PO Q4H PRN PRN Reason: FEVER Last Admin: 11/29/17 11:17 Dose: 650 mg Bisacodyl (Dulcolax Suppository -) 10 mg RC DAILY PRN PRN Reason: CONSTIPATION Diphenhydramine HCl (Benadryl Injection -) 25 mg IVPUSH Q4H PRN PRN Reason: Pruritis Ferrous Sulfate (Feosol -) 325 mg PO DAILY [facility] Last Admin: 11/29/17 10:16 Dose: Not Given Oxytocin/Sodium Chloride (Normal Saline+20 Units Oxytocin -) 20 unit in 1,000 mls @ 125 mls/hr IV ASDIR OMER Parenteral Electrolytes (Plasma-Lyte 148 -) 1,000 mls @ 125 mls/hr IV ASDIR OMER Last Admin: 11/28/17 14:00 Dose: 125 mls/hr Cefazolin Sodium 1 gm/ (Dextrose) 50 mls @ 100 mls/hr IVPB Q8H-IV OMER Stop: 11/30/17 09:59 Last Admin: 11/29/17 09:09 Dose: 100 mls/hr Ibuprofen (Motrin -) 600 mg PO Q4H PRN PRN Reason: PAIN LEVEL 1 - 3 Last Admin: 11/29/17 11:16 Dose: 600 mg Ibuprofen (Caldolor Injection -) 800 mg IVPB Q8H PRN PRN Reason: PAIN LEVEL 1 - 3 Last Admin: 11/29/17 01:22 Dose: 800 mg Methylergonovine Maleate (Methergine Injection -) 0.2 mg IM Q4H PRN PRN Reason: Excessive Bleeding (L&D) Ondansetron HCl (Zofran Injection) 4 mg IVPUSH Q4H PRN PRN Reason: NAUSEA Oxycodone HCl (Roxicodone -) 5 mg PO Q4H PRN PRN Reason: PAIN LEVEL 4 - 6 Oxycodone HCl (Roxicodone -) 10 mg PO Q4H PRN PRN Reason: PAIN LEVEL 7 - 10 Senna/Docusate Sodium (Pericolace -) 2 tablet PO HS PRN PRN Reason: CONSTIPATION Simethicone (Mylicon -) 80 mg PO Q4H PRN PRN Reason: GAS Last Admin: 11/29/17 11:17 Dose: 80 mg - Objective Vital Signs: Vital Signs Temperature 98.4 F 11/29/17 13:00 Pulse Rate 83 11/29/17 13:00 Respiratory Rate 18 11/29/17 13:00 Blood Pressure 109/51 11/29/17 13:00 O2 Sat by Pulse Oximetry (%) 100 11/28/17 17:15 Constitutional: Yes: Well Nourished, No Distress, Calm Musculoskeletal: Yes: WNL Neurological: Yes: WNL, Alert, Oriented ...Motor Strength: WNL Labs: CBC, BMP 11/29/17 08:00 11/28/17 13:55 INR, PTT INR 0.98 (0.82-1.09) 11/28/17 13:55 Assessment/Plan POD#1 s/p Repeat under spinal with duramorph. Doing well. D/C from anesthesia care.
[2017-11-29] MEDS ORDERED: CEFAZOLIN 1 GM in DEXTROSE 5%-WATER - 50 ML IVPB SCH (18:41)
[2017-11-29] MEDS: oxyCODONE HCL 5 MG TABLET PO PRN (19:45)
[2017-11-29] MEDS ORDERED: CEFAZOLIN 1 GM/D5W 1 GM/50 ML BAG IVPB SCH (23:30)
[2017-11-30] MEDS ORDERED: ceFAZolin SODIUM 1 GM VIAL ONE (01:33)
[2017-11-30] MEDS ORDERED: DEXTROSE 5%-WATER - 50 ML IVPB ONE (01:33)
[2017-11-30] MEDS: CEFAZOLIN 1 GM in DEXTROSE 5%-WATER - 50 ML IVPB SCH (01:44)
[2017-11-30] MEDS: oxyCODONE HCL 5 MG TABLET PO PRN ×2 (07:15→14:28)
[2017-11-30] MEDS: IBUPROFEN 600 MG TABLET (FP) PO PRN ×2 (07:15→14:28)
[2017-11-30] MEDS: SIMETHICONE 80 MG TAB.CHEW (FP) PO PRN ×3 (07:15→22:54)
[2017-11-30] MEDS: ACETAMINOPHEN 325 MG TABLET (FP) PO PRN ×3 (07:16→22:53)
[2017-11-30] MEDS: FERROUS SO4 325 MG TABLET (FP) PO SCH (09:40)
[2017-11-30] MEDS: DIPHTH,PERTUSS(ACELL),TET 0.5 ML DISP.SYRIN IM ONE ×2 (17:07→17:11)
--- NOTE | 2017-11-30 21:16 | PN ---
Post Progress Note - Subjective Subjective: Pt seen/evaluated in NICU as she was visiting her baby. No complaints, states pain is minimal. Pt is ambulating, voiding and passing flatus. Tolerating regular diet. Denies n/v. No other issues/concerns. Type of Delivery: Repeat C/S Vital Signs: Vital Signs Temperature 98.4 F 11/30/17 17:00 Pulse Rate 75 11/30/17 13:00 Respiratory Rate 20 11/30/17 13:00 Blood Pressure 107/68 11/30/17 13:00 O2 Sat by Pulse Oximetry (%) 100 11/28/17 17:15 Breast Exam: Yes: Soft Uterus: Yes: Fundus Firm Incision: Yes: Dressing dry and intact Abdomen/GI: Yes: Abdomen soft, Passing flatus, Tolerating PO. No: Tender Lochia: Yes: Rubra Lochia, amount: Small Extremities: Yes: Calves non-tender, Edema (trace edema in LE B/L) Perineum: Yes: Intact Activity: Ambulating - Labs Labs: CBC WBC 8.6 K/mm3 (4.0-10.0) 11/29/17 08:00 RBC 3.56 M/mm3 (3.60-5.2) L 11/29/17 08:00 Hgb 9.8 GM/dL (10.7-15.3) L 11/29/17 08:00 Hct 29.1 % (32.4-45.2) L 11/29/17 08:00 MCV 81.8 fl (80-96) 11/29/17 08:00 MCH 27.6 pg (25.7-33.7) 11/29/17 08:00 MCHC 33.7 g/dl (32.0-36.0) 11/29/17 08:00 RDW 14.5 % (11.6-15.6) 11/29/17 08:00 Plt Count 142 K/MM3 (134-434) 11/29/17 08:00 MPV 9.9 fl (7.5-11.1) 11/29/17 08:00 Neutrophils % 81.9 % (42.8-82.8) 11/29/17 08:00 Lymphocytes % 10.2 % (8-40) D 11/29/17 08:00 Monocytes % 7.6 % (3.8-10.2) 11/29/17 08:00 Eosinophils % 0.1 % (0-4.5) D 11/29/17 08:00 Basophils % 0.2 % (0-2.0) D 11/29/17 08:00 Problem List - Problems (1) delivery delivered Code(s): O82 - ENCOUNTER FOR DELIVERY WITHOUT INDICATION (2) labor in third trimester with delivery Code(s): O60.14X0 - LABOR THIRD TRI W DELIVERY THIRD TRI, UNSP (3) delivery delivered Code(s): O82 - ENCOUNTER FOR DELIVERY WITHOUT INDICATION (4) Anemia, blood loss Code(s): D50.0 - IRON DEFICIENCY ANEMIA SECONDARY TO BLOOD LOSS (CHRONIC) Assessment/Plan 22 y/o POD#2 s/p repeat delivery at 33 weeks for PPROM/PTL, with post op fever which has resolved - AFVSS - afebrile > 24 hours, s/p antibiotics - Hgb 9.8, pt asymptomatic, will monitor and continue vitamins - regular diet - encourage ambulation - PO pain meds - routine post op care
--- NOTE | 2017-11-30 21:29 | DS ---
Physical Exam-ACADEMIC COMPUTING DIRECTOR Vital Signs: Vital Signs Temperature 98.4 F 11/30/17 17:00 Pulse Rate 75 11/30/17 13:00 Respiratory Rate 20 11/30/17 13:00 Blood Pressure 107/68 11/30/17 13:00 O2 Sat by Pulse Oximetry (%) 100 11/28/17 17:15 Constitutional: Yes: Well Nourished, No Distress, Calm Eyes: Yes: Conjunctiva Clear, EOM Intact HENT: Yes: Normocephalic Neck: Yes: Supple Respiratory: Yes: Regular Gastrointestinal: Yes: Normal Bowel Sounds, Soft ....Post : Yes: Uterus firm, Uterus non-tender Wound/Incision: Yes: Clean/Dry, Well Approximated Neurological: Yes: Alert, Oriented Psychiatric: Yes: Alert, Oriented Labs: CBC, BMP 11/29/17 08:00 11/28/17 13:55 Delivery - Delivery Section: Repeat, Low Flap Transverse Type of Anesthesia: Spinal Episiotomy/Laceration: None EBL (cc): 800 Delivery, Single - Stages of Labor Date of Delivery: 11/28/17 Time of Delivery: 15:26 Time Placenta Delivered: 15:27 Placenta: Yes: Manual Removal - 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 Storage Facility Rental Clerk/Calendar Control Clerk Blood Bank Present: Yes Name: Franco Webb Infant Gender: Male Weight: 4 lb 11 oz Position: Right, OP - 1 Minute Total Score: 8 5 Minutes Total Score: 9 - [place] Feeding Plan Initial Plan: Elected not to breastfeed exclusively throughout hospitalization Discharge Summary Reason For Visit: LABOR Current Active Problems Anemia, blood loss (Acute) delivery delivered (Acute) delivery delivered (Acute) labor in third trimester with delivery (Acute) Procedures: Principal: Repeat [facility] Hospital Course: Pt admitted on 11/28/17 with complaints of leaking fluid X 2 days and pt was 3cm upon admission. Pt was diagnosed with PPROM and PTL, had previous delivery. Pt underwent repeat delivery without complication on . Post operatively pt had fever up to 102.9, however after antipyretics and post op IV antibiotics, the patient was afebrile by post op day 2. The patient was in stable condition and discharged home on post op day 3. Condition: Good - Instructions Diet, Activity, Other Instructions: Physical activity Resume your normal everyday activity as tolerated but no heavy lifting or strenuous exercise until seen by your surgeon. You may walk unlimited amounts and climb stairs. You may resume driving the car when you feel safe and comfortable behind the wheel. No sexual activity as instructed. Wound care If they are tapes on the skin leave them in place. They will peel off in the next 7 to 10 days. Do Not Peel them off. You may shower the day after surgery. If there are tapes present on the skin, you may shower over them. Diet There are no dietary restrictions. Eat healthy, high-fiber foods. Drink 6 to 8 glasses of liquid each day. This will assist in keeping your bowels regular. Pain management You may take Tylenol or Ibuprofen (for example, Motrin, Advil etc.) as needed for mild pain. If any prescription medication is ordered should be taken as prescribed for moderate to severe pain. Call MD for any of the following: Severe pain not relieved by medication Fever of 101 or higher Excessive bleeding or drainage on dressing Inability to urinate Referrals: Sammi Zhang DO [Staff Physician] - 1 Week (for incision check) Disposition: HOME - Home Medications Comprehensive Discharge Medication List: Ambulatory Orders Ferrous Sulfate 325 mg PO DAILY 10/20/17 Vit Calc,Iron,Folic [ Vitamins] 1 each PO DAILY 10/20/17 Ibuprofen [Motrin -] 600 mg PO QID PRN #28 tablet 11/30/17 Oxycodone HCl/Acetaminophen [Percocet 5-325 mg Tablet -] 1 tab PO Q4H #20 tablet MDD 6 11/30/17
[2017-12-01] MEDS: SIMETHICONE 80 MG TAB.CHEW (FP) PO PRN (06:17)
[2017-12-01] MEDS: oxyCODONE HCL 5 MG TABLET PO PRN (06:17)
[2017-12-01] MEDS: IBUPROFEN 600 MG TABLET (FP) PO PRN (06:17)
[2017-12-01] MEDS: ACETAMINOPHEN 325 MG TABLET (FP) PO PRN (06:18)
[2017-12-01 07:18] LABS: BASO % 0.2 % (0-2.0); EOS % 1.4 % (0-4.5); HEMOGLOBIN 9.4 GM/dL (10.7-15.3); LYMPH % 22.5 % (8-40); MCH 27.6 pg (25.7-33.7); MCHC 33.7 g/dl (32.0-36.0); MEAN CELL VOLUME 81.9 fl (80-96); MEAN PLT VOLUME 9.1 fl (7.5-11.1); MONO % 4.7 % (3.8-10.2); NEUT % 71.2 % (42.8-82.8); PLATELET COUNT 173 K/MM3 (134-434); RBC 3.42 M/mm3 (3.60-5.2); RDW 14.2 % (11.6-15.6); WHITE BLOOD COUNT 6.9 K/mm3 (4.0-10.0)
[2017-12-01] MEDS: FERROUS SO4 325 MG TABLET (FP) PO SCH (09:35)
[2017-12-01 11:15] VITALS: BP 115/70; PULSE 73; TEMP 98.1
--- NOTE | 2017-12-06 17:25 | PATH ---
Surgical Pathology Report Patient Name: ERIS VILLANUEVA Med. Rec. #: [id number] /Age/Gender: 1995 (Age: 22) / F Account: [id number] Location: [facility] OBS/OIL REFINER Taken: 11/28/2017 Received: 11/29/2017 Reported: 12/06/2017 Physicians: Sammi Zhang M.D. Specimen(s) Received PLACENTA Clinical History , 33.3 weeks x3 (05/2011, 03/2013, 04/2015) Rule out blood clot in brain 2017 Final Diagnosis PLACENTA: THIRD TRIMESTER PLACENTA. TRIVASCULAR CORD. MEMBRANES, NO DIAGNOSTIC ABNORMALITIES. Electronically Signed Aleksey Hardwick M.D. Gross Description The specimen is received fresh labeled placenta and is a 331 gram, 16.5 x 12.5 x 2.4 cm. placenta with attached membranes and umbilical cord. The attached membranes are bianchi, translucent with focal opacities and insert marginally. The umbilical cord measures 29 cm. in length and averages 1.2 cm. in diameter. The cord inserts eccentrically, 4 cm. to the nearest margin. No true knots or strictures are identified. Cut surface of the umbilical cord reveals 3 vessels. The surface is mccormack-blue with minimal fibrin deposition and appropriate caliber vessels. The maternal surface is red-brown with focal defects. Sectioning reveals red-brown, spongy parenchyma. No lesions are identified. Architectural Draftsperson sections are submitted in three cassettes as follows: 1- membrane rolls and umbilical cord; 2-3- full thickness sections of placenta. /12/05/2017 [facility]12/05/2017
--- NOTE | 2017-12-07 20:50 | OP ---
DATE OF OPERATION: 11/28/2017 PREOPERATIVE DIAGNOSIS: labor, premature rupture of membranes, previous section and single intrauterine at 33 weeks' gestation. POSTOPERATIVE DIAGNOSIS: labor, premature rupture of membranes, previous section and single intrauterine at 33 weeks' gestation. PROCEDURE: Repeat low transverse . SURGEON: Sammi Zhang M.D. CORKING MACHINE OPERATOR: Tavo Weir ANESTHESIA: Spinal. COMPLICATIONS: None. FINDINGS: Included normal bilateral tubes and ovaries. SPECIMEN REMOVED: Placenta ESTIMATED BLOOD LOSS: 800 cc COUNTS: Sponge, needle, and instrument count correct at the end of the case. BRIEF HISTORY AND PROCEDURE: Patient is a 22-year-old G5 para 5 female at 33 weeks patient who presented to labor and delivery with complaints of leaking fluid for several days as well as having cramping contractions. The patient was examined and found to be 3 cm dilated upon admission. The patient had a known prior delivery and upon admission was counseled on her options, and the plan was made to repeat with repeat low transverse delivery. The patient signed consents for the procedure. She was then taken back to the operating room. She was given spinal anesthesia and placed in the dorsal supine on the operating room table. She was prepped and draped in the usual sterile fashion. Then a hard timeout was then performed. A Pfannenstiel skin incision was created in the skin with scalpel and carried to the underlying layer of rectus fascia with the Bovie. The fascia was incised on either side of the midline with the Bovie, and the fascial incision was extended in the superior lateral direction sharply. The fascia was tented upwards, and then dissected off the underlying layer rectus muscle with the Bovie. The musculature was identified, and the midline was located, and the muscle was laterally. The peritoneum was identified and entered bluntly. A bladder blade was then inserted. The peritoneum was carefully dissected to allow for adequate room for delivery. Next a transverse incision was created in the lower uterine segment which was carried in the superior lateral direction bluntly. The baby was then delivered without difficulty. Anterior and posterior shoulders were delivered with ease along with the remainder of the . The cord was allowed to pulsate for 1 minute, and after delayed cord clamping, the cord was clamped twice and cut in between. The infant was taken over to the warmer to be assessed by the neonatology staff, who were present for the entire delivery. The placenta was then delivered intact and it was manually extracted. The uterus was then exteriorized from the abdomen, inspected, and cleared of all amniotic membrane and debris with a dry lap sponge. The hysterotomy was reapproximated in a double layered closure using 1 Vicryl running, locked fashion, second layer being 0 Biosyn in a running, locked fashion. Excellent hemostasis was achieved. The posterior cul-de-sac was suctioned. Bilateral tubes and ovaries were examined and noted to be normal. The uterus was placed back into the abdomen. Bilateral gutters were inspected and cleared of all blood clot and debris. The hysterotomy was noted to have a little bit of bleeding, which was controlled with [id number] sutures as well as a piece of Surgicel. Next, the peritoneum was reapproximated using 2-0 chromic in a running fashion. The musculature was reapproximated in 2 interrupted sutures using 2-0 chromic and 0 Biosyn. The fascia was reapproximated using 1 Vicryl in a running fashion. The subcutaneous tissue was irrigated, reapproximated using 1 Vicryl suture, and the skin was reapproximated using 3-0 Vicryl in a subcuticular fashion. Steri-Strips were applied. Sponge, needle, instrument counts were reported to be correct. The patient tolerated the procedure well, to recovery in stable condition in the postoperative area after the procedure. SAMMI ZHANG DO /[id number]
== END 2017-12-01 10:00 | disposition home or self-care (01) | DRG 540 ==
LOC: JDEL 13:00 → JLDR 13:45 → J3W 18:10
PROVIDERS: ADMIT Obstetrics & Gynecology; ATTEND Obstetrics & Gynecology
PROC: 10D00Z1 Extraction of Products of Conception, Low, Open Approach (ICD-10-PCS; principal; 2017-11-28)
DX: O60.14X0 Preterm labor third trimester with preterm delivery third trimester, not applicable or unspecified (principal); O86.4 Pyrexia of unknown origin following delivery; O34.211 Maternal care for low transverse scar from previous cesarean delivery; O99.02 Anemia complicating childbirth; D50.0 Iron deficiency anemia secondary to blood loss (chronic); Z3A.33 33 weeks gestation of pregnancy; Z37.0 Single live birth
CPT/HCPCS: 36415; 80048; 81003; 81015; 85025; 85610; 85730; 86593; 86850; 86900; 86901; 87040; 87086; 88307-TC; 90715; J0131

== ENCOUNTER 2018-02-12 18:14 | Emergency (ER) | payer OTHER ==
[2018-02-12 18:26] VITALS: BMI 31.1
--- NOTE | 2018-02-12 18:37 | PDOC ---
History of Present Illness - General Chief Complaint: Nausea/Vomiting Stated Complaint: PAIN Time Seen by Provider: 02/12/18 18:37 - History of Present Illness Initial Comments: 23 year old female w2 months s/p PPROM and vaginal delivery presenting with 2 days of nausea/ vomiting after a heavy night of drinking and eating some foul tasting shrimp. Patient states that she had one episode of vomiting yesterday one hour after eating the shrimp then another episode today. She has generalized warmth but has not attempted to measure a fever at home. Denies diarrhea, chest pain, SOB, headache, vaginal discharge, change in her urine, or other symptoms. 02/12/18 21:23 Past History - Past Medical History Allergies/Adverse Reactions: Allergies Allergy/AdvReac Type Severity Reaction Status Date / Time No Known Allergies Allergy Verified 11/28/17 14:42 Home Medications: Ambulatory Orders Ferrous Sulfate 325 mg PO DAILY 10/20/17 Vit Calc,Iron,Folic [ Vitamins] 1 each PO DAILY 10/20/17 Ibuprofen [Motrin -] 600 mg PO QID PRN #28 tablet 11/30/17 Oxycodone HCl/Acetaminophen [Percocet 5-325 mg Tablet -] 1 tab PO Q4H #20 tablet MDD 6 11/30/17 levoFLOXacin [Levaquin] 750 mg PO DAILY 5 Days #5 tab 02/12/18 Asthma: No Cancer: No Cardiac Disorders: No COPD: No Diabetes: No HTN: No Seizures: No Thyroid Disease: No 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 - Reproductive History (#): 3 Para: 5 Cervical CA: No Dysfunctional Uterine Bleeding: No Ectopic : No Endometrial CA: No Polycystic Ovaries: No Therapeutic (s) & number: No (denies) Tubal Ligation: No - Immunization History Immunization Up to Date: Yes - Suicide/Smoking/Psychosocial Hx Smoking Status: No Smoking History: Never smoked Have you smoked in the past 12 months: No Number of Cigarettes Smoked Daily: 0 Hx Alcohol Use: No Drug/Substance Use Hx: No Substance Use Type: None Hx Substance Use Treatment: No Review of Systems - Review of Systems Constitutional: No: Chills, Diaphoresis, Fever HEENTM: No: Blurred Vision, Tearing, Recent change in vision Respiratory: No: Cough, Orthopnea, Shortness of Breath Cardiac (ROS): No: Chest Pain, Irregular Heart Rate, Palpitations ABD/GI: Yes: Nausea, Vomiting. No: Diarrhea : No: Burning, Dysuria, Discharge Musculoskeletal: Yes: Back Pain. No: Joint Pain, Muscle Pain Integumentary: No: Bruising, Erythema, Flushing, Lesions Neurological: No: Headache, Numbness, Paresthesia Psychiatric: No: Anxiety, Depression, Frequent Crying Endocrine: No: Increased Thirst, Increased Urine Hematologic/Lymphatic: No: Anemia, Easy Bleeding, Bleeding Diathesis *Physical Exam - Vital Signs Last Vital Signs Temp Pulse Resp BP Pulse Ox 103 F H 131 H 20 158/88 99 02/12/18 18:23 02/12/18 18:23 02/12/18 18:23 02/12/18 18:23 02/12/18 18:23 - Physical Exam General Appearance: Yes: Nourished, Appropriately Dressed, Other (diaphoretic but comfortable). No: Apparent Distress HEENT: positive: EOMI, OSCAR, Normal Voice. negative: Normal ENT Inspection ( dry MMs) Neck: positive: Trachea midline, Normal Thyroid, Supple. negative: Tender, Rigid Respiratory/Chest: positive: Lungs Clear, Normal Breath Sounds. negative: Chest Tender, Respiratory Distress, Accessory Muscle Use Cardiovascular: positive: Regular Rhythm, Tachycardia. negative: Regular Rate Gastrointestinal/Abdominal: positive: Normal Bowel Sounds, Flat, Soft. negative : Tender Lymphatic: negative: Adenopathy, Tenderness Musculoskeletal: positive: Normal Inspection. negative: CVA Tenderness, Decreased Range of Motion Extremity: positive: Normal Capillary Refill, Normal Inspection, Normal Range of Motion. negative: Tender Integumentary: positive: Normal Color, Dry, Warm Neurologic: positive: Fully Oriented, Alert, Normal Mood/Affect, Normal Response , Motor Strength 5/5 ED Treatment Course - LABORATORY CBC & Chemistry Diagram: 02/12/18 20:18 02/12/18 20:18 Medical Decision Making - Medical Decision Making 23 year old female with nausea, vomiting, and sinus tachycardia. Her original concern was about the nausea/ vomiting which resolved with zofran, pepcid, and Maalox however she has a significant UTI with fever concerning more for pyelonephritis although she has no urinary complaints. Given I tylenol and one dose Levaquin in ED with 5 days Levaquin outpatient PO. Patient is not breast feeding. Discharged with f/u instructions and return precautions. 02/12/18 21:34 *DC/Admit/Observation/Transfer Diagnosis at time of Disposition: Pyelonephritis - Discharge Dispostion Disposition: HOME Condition at time of disposition: Stable Decision to Admit order: No - Prescriptions Prescriptions: levoFLOXacin [Levaquin] 750 mg PO DAILY 5 Days #5 tab - Referrals Referrals: [facility] [place] [facility] [Provider Group] - Patient Instructions Printed Discharge Instructions: DI for Kidney Infection Additional Instructions: You have a bad infection that we suspect is in your kidney. Please take the antibiotics once daily. Please use Tylenol for the fever and pain. Please follow up with your primary care physician. If you do not have a primary care physician, please use our recommendation n this form. Please return to the ED with new or worsening symptoms. - Post Discharge Activity
[2018-02-12] MEDS ORDERED: MAG HYDROX/AL HYDROX/SIMETH 30 ML UNIT-DOSE CUP PO ONE (19:25)
[2018-02-12] MEDS ORDERED: FAMOTIDINE 20 MG/50 ML IVPB 20 MG/50 ML MG IVPB ONE ×2 (19:25→20:33)
[2018-02-12] MEDS ORDERED: ONDANSETRON 4 MG/2 ML VIAL IVPUSH ONE (19:25)
[2018-02-12] MEDS ORDERED: SODIUM CHLORIDE 0.9% 500 ML INFUS.BAG IV ONE (19:25)
[2018-02-12] MEDS ORDERED: ONDANSETRON 4 MG/2 ML VIAL ONE (20:18)
[2018-02-12] MEDS ORDERED: MAG HYDROX/AL HYDROX/SIMETH 30 ML UNIT-DOSE CUP ONE (20:18)
[2018-02-12 20:28] LABS: URINE APPEARANCE CLOUDY; URINE BILIRUBIN NEGATIVE (<2.0 mg/dL); URINE COLOR YELLOW; URINE GLUCOSE (UA) NEGATIVE (NEGATIVE); URINE KETONE 1+ (NEGATIVE); URINE NITRITE POSITIVE (NEGATIVE); URINE UROBILINOGEN NEGATIVE mg/dL (0.2-1.0)
[2018-02-12 20:29] LABS: BASO % 0.3 % (0-2.0); EOS % 0.1 % (0-4.5); HEMATOCRIT 37.3 % (32.4-45.2); HEMOGLOBIN 12.5 GM/dL (10.7-15.3); LYMPH % 2.7 % (8-40); MCH 26.4 pg (25.7-33.7); MCHC 33.6 g/dl (32.0-36.0); MEAN CELL VOLUME 78.4 fl (80-96); MONO % 6.4 % (3.8-10.2); NEUT % 90.5 % (42.8-82.8); PLATELET COUNT 200 K/MM3 (134-434); RBC 4.76 M/mm3 (3.60-5.2); RDW 15.5 % (11.6-15.6); WHITE BLOOD COUNT 10.4 K/mm3 (4.0-10.0)
[2018-02-12 20:33] LABS: URINE LEUK ESTERASE 3+ (NEGATIVE); URINE PROTEIN 2+ (NEGATIVE)
[2018-02-12 20:34] LABS: EPI CELLS RARE /HPF (FEW); URINE BACTERIA MANY /hpf (NONE SEEN); URINE MUCUS RARE
[2018-02-12 20:35] LABS: HCG,QUALITATIVE URINE NEGATIVE
[2018-02-12 20:49] LABS: ALBUMIN 3.8 g/dl (3.4-5.0); ALK PHOS 67 U/L (45-117); ANION GAP 10 (8-16); BILIRUBIN,TOTAL 1.6 mg/dL (0.2-1.0); BLOOD UREA NITROGEN 10 mg/dL (7-18); CALCIUM 8.8 mg/dL (8.5-10.1); CHLORIDE 105 mmol/L (98-107); CO2 25 mmol/L (21-32); CREATININE 0.9 mg/dL (0.55-1.02); GLUCOSE,RANDOM 86 mg/dL (74-106); SGPT/ALT 18 U/L (12-78); SODIUM 140 mmol/L (136-145)
[2018-02-12 20:50] LABS: POTASSIUM 3.3 mmol/L (3.5-5.1); SGOT/AST 21 U/L (15-37)
[2018-02-12] MEDS ORDERED: ACETAMINOPHEN 1000 MG/100 ML VIAL (NON FORMULARY) IVPB ONE (20:55)
--- NOTE | 2018-02-12 21:04 | PDOC ---
Attending Attestation - Resident Resident Name: SiennaDustygiovannamatthew - ED Attending Attestation I have performed the following: I have examined & evaluated the patient, The case was reviewed & discussed with the resident, I agree w/resident's findings & plan, Exceptions are as noted - HPI HPI: 02/12/18 21:03 23-year-old female presented for fever, chills and one episode vomiting. Her temperature was 103 in the Emergency Department Past medical history childbirth 3 - Physicial Exam PE: 02/12/18 21:04 Well-nourished, well-developed 23-year-old female who presents with fever and tachycardia. Head is normocephalic, atraumatic. Neck supple Lungs clear to auscultation. CVS tachycardia Abdomen flat, no rebound, no guarding. Musculoskeketal mild cva tenderness Skin warm and dry. Neuro alert and oriented 3, no gross focal neural deficits ext no e/c/c psych appropriate - Medical Decision Making 02/12/18 21:27 febrile 23 yo female found to have early pyelonephrtis and started on levaquin discharged home with RX
[2018-02-12] MEDS ORDERED: levoFLOXacin 750 MG TABLET PO ONE (21:08)
[2018-02-12] MEDS ORDERED: ACETAMINOPHEN INJECTION 100 ML IVPB ONE (21:11)
[2018-02-12] MEDS ORDERED: levoFLOXacin 750 MG TABLET PO SCH (21:15)
[2018-02-12 22:24] VITALS: BP 136/78; PULSE 86; TEMP 98.6
== END 2018-02-12 22:24 | disposition home or self-care (01) ==
LOC: JER 18:14
PROC: 3E033GC Introduction of Other Therapeutic Substance into Peripheral Vein, Percutaneous Approach (ICD-10-PCS; principal; 2018-02-12)
PROC: 3E033GC Introduction of Other Therapeutic Substance into Peripheral Vein, Percutaneous Approach (ICD-10-PCS; 2018-02-12)
PROC: 3E033NZ Introduction of Analgesics, Hypnotics, Sedatives into Peripheral Vein, Percutaneous Approach (ICD-10-PCS; 2018-02-12)
DX: N39.0 Urinary tract infection, site not specified (principal); N12 Tubulo-interstitial nephritis, not specified as acute or chronic
CPT/HCPCS: 36415; 80053; 81003; 81015; 84703; 85025; 87086; 87186; 96365; 96375; 99282-25; J0131

== ENCOUNTER 2018-12-24 16:19 | Emergency (ER) | payer OTHER | END 2018-12-24 20:27 | disposition home or self-care (01) | LOC: JERFT 16:19 → JER 20:27 ==

== ENCOUNTER 2019-02-18 13:42 | Emergency (ER) | payer OTHER ==
[2019-02-18 13:59] VITALS: BP 125/80; PULSE 79; TEMP 98.1; BMI 29.2
--- NOTE | 2019-02-18 15:10 | PDOC ---
History of Present Illness - General Chief Complaint: Psychiatric Stated Complaint: PREG TEST Time Seen by Provider: 02/18/19 14:33 History Source: Patient Exam Limitations: Clinical Condition - History of Present Illness Initial Comments: 02/18/19 15:08 Patient with no significant past medical history present with complaint of three -day history of nausea, bilateral breast heaviness, urinary frequency and intermittent suprapubic discomfort. Patient also reported feeling eye shows due to going through drama with her friends which her friends has been posting by staff about her on social media. Patient denies suicidal or homicidal ideation. Reported feeling safe at home. Patient does not feel and shows right now. Denies fever, chills, vaginal bleeding, headache, dizziness, chest pain, shortness of breath, palpitations. Denies back pains Timing/Duration: other (3 days) Past History - Past Medical History Allergies/Adverse Reactions: Allergies Allergy/AdvReac Type Severity Reaction Status Date / Time No Known Allergies Allergy Verified 12/24/18 16:27 Home Medications: Ambulatory Orders Cephalexin Monohydrate [Keflex -] 500 mg PO Q8H #20 capsule 12/24/18 Ethinyl Estradiol 1 gm MC ASDIR 12/24/18 Asthma: No Cancer: No Cardiac Disorders: No COPD: No Diabetes: No HTN: No Seizures: No Thyroid Disease: No - Reproductive History (#): 3 Para: 5 Cervical CA: No Dysfunctional Uterine Bleeding: No Ectopic : No Endometrial CA: No Polycystic Ovaries: No Therapeutic (s) & number: No (denies) Tubal Ligation: No - Immunization History Immunization Up to Date: Yes - Suicide/Smoking/Psychosocial Hx Smoking Status: No Smoking History: Never smoked Have you smoked in the past 12 months: No Number of Cigarettes Smoked Daily: 0 Hx Alcohol Use: No Drug/Substance Use Hx: No Substance Use Type: None Hx Substance Use Treatment: No Review of Systems - Review of Systems Able to Perform ROS?: Yes Is the patient limited Maori proficient: No Constitutional: No: Chills, Fever, Malaise, Night Sweats HEENTM: No: Symptoms Reported Respiratory: No: Symptoms reported, See HPI, Cough, Orthopnea, Shortness of Breath, SOB with Exertion, SOB at Rest, Stridor, Wheezing, Productive cough, Hemoptysis, Other Cardiac (ROS): No: Symptoms Reported, See HPI, Chest Pain, Edema, Irregular Heart Rate, Lightheadedness, Palpitations, Syncope, Chest Tightness, Other ABD/GI: Yes: Symptoms Reported, See HPI, Nausea, Abdominal cramping (suprapubic intermittent discomfort). No: Abdominal Distended, Abd. Pain w/ defecation, Blood Streaked Bowels, Constipated, Diarrhea, Difficulty Swallowing, Poor Appetite, Poor Fluid Intake, Rectal Bleeding, Vomiting : Yes: Symptoms Reported, See HPI, Frequency. No: Burning, Dysuria, Discharge , Flank Pain, Hematuria, Incontinence, Urgency, Other (vaginal bleeding) Musculoskeletal: No: Symptoms Reported, Back Pain Integumentary: No: Symptoms Reported Neurological: No: Symptoms reported, Weakness, Dizziness All Other Systems: Reviewed and Negative *Physical Exam - Vital Signs Last Vital Signs Temp Pulse Resp BP Pulse Ox 98.1 F 79 20 125/80 98 02/18/19 13:55 02/18/19 13:55 02/18/19 13:55 02/18/19 13:55 02/18/19 13:55 - Physical Exam Comments: 02/18/19 15:13 GENERAL: Well developed, well nourished. Awake and alert. No acute distress. HEENT: Normocephalic, atraumatic. PERRLA, EOMI. No conjunctival pallor. Sclera are non-icteric. Moist mucous membranes. Oropharynx is clear. NECK: Supple. Full ROM. CARDIOVASCULAR: Regular rate and rhythm. No murmurs, rubs, or gallops. Distal pulses are 2+ and symmetric. PULMONARY: No evidence of respiratory distress. Lungs clear to auscultation bilaterally. No wheezing, rales or rhonchi. ABDOMINAL: Soft. Mild suprapubic tenderness to deep palpation. Non-distended. No rebound or guarding. No organomegaly. Normoactive bowel sounds. MUSCULOSKELETAL Normal range of motion at all joints. SKIN: Warm and dry. Normal capillary refill. NEUROLOGICAL: Alert, awake, appropriate. Gait is normal without ataxia. PSYCHIATRIC: Cooperative. Good eye contact. Appropriate mood General Appearance: Yes: Nourished, Appropriately Dressed. No: Apparent Distress Medical Decision Making - Medical Decision Making 02/18/19 15:10 Patient with no significant past medical history present with complaint of three -day history of nausea, bilateral breast heaviness, urinary frequency and intermittent suprapubic discomfort. Patient LMP 15th of last month which she only bled for 2 days which patient report is unusual for her as her menstrual period usually last for 7 days.Patient also reported feeling eye shows due to going through drama with her friends which her friends has been posting by staff about her on social media. Patient denies suicidal or homicidal ideation. Reported feeling safe at home. Patient does not feel and shows right now. Denies fever, chills, vaginal bleeding, headache, dizziness, chest pain, shortness of breath, palpitations. Denies back pains Exam significant for mild superficial discomfort without guarding or rebound. Patient not looking shows. No CVA tenderness. Normal cardio and lung exam. Patient no acute distress Symptoms likely versus UTI. UA, urine culture and urine hCG labs ordered. Treat based on urine results 02/18/19 15:41 Urine hCG negative. UA with no significant findings. Results discussed with patient and patient now feels better and stable for discharge. Urine culture pending and patient advised she will be contacted with urine culture results *DC/Admit/Observation/Transfer Diagnosis at time of Disposition: test negative, Anxiousness - Discharge Dispostion Disposition: HOME Condition at time of disposition: Stable Decision to Admit order: No - Referrals - Patient Instructions Printed Discharge Instructions: Social Anxiety Disorder, Yoga May Help Reduce Anxiety and Stress Additional Instructions: Your is negative. You will be contacted with urine culture results. Relax and do deep breathing exercise to help with feeling anxious. Follow-up with your PCP as needed - Post Discharge Activity
[2019-02-18 15:28] LABS: EPI CELLS 10.9 /HPF (0-5/HPF); HYALINE CASTS 12 /lpf (0-8); PH,URINE 5.5 (5.0-8.0); URINE APPEARANCE CLEAR; URINE BACTERIA 70.5 /hpf (NEGATIVE); URINE BILIRUBIN NEGATIVE (NEGATIVE); URINE COLOR DK YELLOW; URINE GLUCOSE (UA) NEGATIVE (NEGATIVE); URINE KETONE 4+ (NEGATIVE); URINE LEUK ESTERASE TRACE (NEGATIVE); URINE NITRITE NEGATIVE (NEGATIVE); URINE PROTEIN TRACE (NEGATIVE); URINE RBC 1 /hpf (0-4); URINE WBC 4 /hpf (0-5)
== END 2019-02-18 16:16 | disposition home or self-care (01) ==
LOC: JER 13:42
DX: F41.9 Anxiety disorder, unspecified (principal); Z32.02 Encounter for pregnancy test, result negative
CPT/HCPCS: 81003; 84703; 87086; 99282-25

== ENCOUNTER 2019-04-23 17:51 | Emergency (ER) | payer OTHER ==
[2019-04-23 18:02] VITALS: BP 114/64; PULSE 83; TEMP 98.3; BMI 31.2
[2019-04-23] MEDS ORDERED: ONDANSETRON 4 MG/2 ML VIAL IVPUSH ONE (19:19)
[2019-04-23] MEDS ORDERED: SODIUM CHLORIDE 1,000 ML IV STA (19:19)
--- NOTE | 2019-04-23 19:19 | PDOC ---
History of Present Illness - General Chief Complaint: Pain Stated Complaint: Nausea/Vomiting Time Seen by Provider: 04/23/19 19:13 History Source: Patient - History of Present Illness Initial Comments: 04/23/19 20:11 24 year old female c/o Nausea and vomiting & diarrhea since last with slight headache.patient c/o bodyaches, weakness. patient reports that cousin with similar symptoms and patient had close contact with her. Subjective fever reported. PMHX: clots ' Past History - Past Medical History Allergies/Adverse Reactions: Allergies Allergy/AdvReac Type Severity Reaction Status Date / Time No Known Allergies Allergy Verified 04/23/19 18:02 Home Medications: Ambulatory Orders NK [No Known Home Medication] 04/23/19 Asthma: No Cancer: No Cardiac Disorders: No COPD: No Diabetes: No HTN: No Seizures: No Thyroid Disease: No - Reproductive History (#): 3 Para: 5 Cervical CA: No Dysfunctional Uterine Bleeding: No Ectopic : No Endometrial CA: No Polycystic Ovaries: No Therapeutic (s) & number: No (denies) Tubal Ligation: No - Immunization History Immunization Up to Date: Yes - Psycho Social/Smoking Cessation Hx Smoking Status: No Smoking History: Never smoked Have you smoked in the past 12 months: No Number of Cigarettes Smoked Daily: 0 Information on smoking cessation initiated: No Hx Alcohol Use: No Drug/Substance Use Hx: No Substance Use Type: None Hx Substance Use Treatment: No Review of Systems - Review of Systems Able to Perform ROS?: Yes Is the patient limited Divehi proficient: No Constitutional: Yes: Fever Cardiac (ROS): No: Symptoms Reported, See HPI, Chest Pain, Edema, Irregular Heart Rate, Lightheadedness, Palpitations, Syncope, Chest Tightness, Other ABD/GI: Yes: Diarrhea, Nausea, Vomiting, Abdominal cramping (epigastric area pain). No: Symptoms Reported, See HPI, Abdominal Distended, Abd. Pain w/ defecation, Blood Streaked Bowels, Constipated, Difficulty Swallowing, Poor Appetite, Poor Fluid Intake, Rectal Bleeding, Indigestion, Tarry Stools, Other *Physical Exam - Vital Signs Last Vital Signs Temp Pulse Resp BP Pulse Ox 98.3 F 83 19 114/64 99 04/23/19 17:59 04/23/19 17:59 04/23/19 17:59 04/23/19 17:59 04/23/19 17:59 - Physical Exam General Appearance: Yes: Appropriately Dressed Respiratory/Chest: positive: Lungs Clear, Normal Breath Sounds Cardiovascular: positive: Regular Rhythm, Regular Rate Gastrointestinal/Abdominal: positive: Normal Bowel Sounds, Tender (generalized abdominal pain), Soft Extremity: positive: Normal Capillary Refill, Normal Inspection, Normal Range of Motion Integumentary: positive: Normal Color, Dry, Warm Neurologic: positive: Fully Oriented, Alert, Normal Mood/Affect ED Treatment Course - LABORATORY CBC & Chemistry Diagram: 04/23/19 19:30 04/23/19 19:30 ED Progress Note - Progress Note Progress Note: 04/23/19 20:13 A: gastroenteritis P: labs IVF zofran famotidine Medical Decision Making - Medical Decision Making patient tolerated PO and has no abdominal pain. will d/c home Discharge - Discharge Information Problems reviewed: Yes Clinical Impression/Diagnosis: Gastroenteritis Disposition: HOME - Follow up/Referral - Patient Discharge Instructions Patient Printed Discharge Instructions: Viral Gastroenteritis Additional Instructions: Drink plenty of fluids start a BRAT ( bananas, rice apples toast) follow up with your doctor return to the ER if symptoms worsen - Post Discharge Activity Work/Back to School Note: Back to Work
[2019-04-23] MEDS ORDERED: ONDANSETRON 4 MG/2 ML VIAL ONE (19:38)
[2019-04-23 19:47] LABS: BASO % 0.7 % (0-2.0); EOS % 0.1 % (0-4.5); HEMATOCRIT 39.2 % (32.4-45.2); HEMOGLOBIN 12.6 GM/dL (10.7-15.3); LYMPH % 19.6 % (8-40); MCH 26.4 pg (25.7-33.7); MCHC 32.2 g/dl (32.0-36.0); MEAN CELL VOLUME 82.1 fl (80-96); MEAN PLT VOLUME 9.2 fl (7.5-11.1); MONO % 3.7 % (3.8-10.2); NEUT % 75.9 % (42.8-82.8); PLATELET COUNT 244 K/MM3 (134-434); RBC 4.77 M/mm3 (3.60-5.2); RDW 14.9 % (11.6-15.6); WHITE BLOOD COUNT 7.7 K/mm3 (4.0-10.0)
[2019-04-23 19:54] LABS: PH,URINE 6.5 (5.0-8.0); URINE APPEARANCE CLEAR; URINE BILIRUBIN NEGATIVE (NEGATIVE); URINE COLOR YELLOW; URINE GLUCOSE (UA) NEGATIVE (NEGATIVE); URINE KETONE NEGATIVE (NEGATIVE); URINE LEUK ESTERASE NEGATIVE (NEGATIVE); URINE NITRITE NEGATIVE (NEGATIVE); URINE PROTEIN NEGATIVE (NEGATIVE); URINE UROBILINOGEN 0.2 mg/dL (0.2-1.0)
[2019-04-23 20:19] LABS: ALBUMIN 3.8 g/dl (3.4-5.0); BILIRUBIN,TOTAL 0.8 mg/dL (0.2-1); BLOOD UREA NITROGEN 10.2 mg/dL (7-18); CREATININE 0.7 mg/dL (0.55-1.3); POTASSIUM 3.6 mmol/L (3.5-5.1); TOT PROT 7.5 g/dl (6.4-8.2)
[2019-04-23] MEDS ORDERED: ACETAMINOPHEN 1000 MG/100 ML VIAL (NON FORMULARY) IVPB ONE (20:34)
[2019-04-23] MEDS ORDERED: FAMOTIDINE 20 MG/50 ML IVPB 20 MG/50 ML MG IVPB ONE ×2 (20:34→21:21)
[2019-04-23] MEDS ORDERED: METOCLOPRAMIDE HCL INJECTION 10 MG/2 ML VIAL IVPB ONE (20:35)
[2019-04-23] MEDS ORDERED: METOCLOPRAMIDE HCL INJECTION 10 MG/2 ML VIAL ONE (21:20)
[2019-04-23] MEDS ORDERED: ACETAMINOPHEN INJECTION 100 ML IVPB ONE (21:20)
--- NOTE | 2019-04-23 21:50 | PDOC ---
*Physical Exam - Vital Signs Last Vital Signs Temp Pulse Resp BP Pulse Ox 98.3 F 83 19 114/64 99 04/23/19 17:59 04/23/19 17:59 04/23/19 17:59 04/23/19 17:59 04/23/19 17:59 ED Treatment Course - LABORATORY CBC & Chemistry Diagram: 04/23/19 19:30 04/23/19 19:30 - ADDITIONAL ORDERS Additional order review: Laboratory Results 04/23/19 04/23/19 04/23/19 19:30 19:30 19:30 Sodium 139 Potassium 3.6 Chloride 106 Carbon Dioxide 25 Anion Gap 8 BUN 10.2 Creatinine 0.7 Est GFR (CKD-EPI)AfAm 141.54 Est GFR (CKD-EPI)NonAf 122.12 Random Glucose 105 Calcium 9.0 Total Bilirubin 0.8 AST 11 L ALT 16 Alkaline Phosphatase 64 Total Protein 7.5 Albumin 3.8 Lipase 101 Urine Color Yellow Urine Appearance Clear Urine pH 6.5 Ur Specific [place] 1.025 Urine Protein Negative Urine Glucose (UA) Negative Urine Ketones Negative Urine Blood Negative Urine Nitrite Negative Urine Bilirubin Negative Urine Urobilinogen 0.2 Ur Leukocyte Esterase Negative Urine HCG, Qual Negative 04/23/19 19:30 RBC 4.77 MCV 82.1 MCHC 32.2 RDW 14.9 MPV 9.2 Neutrophils % 75.9 Lymphocytes % 19.6 Monocytes % 3.7 L Eosinophils % 0.1 Basophils % 0.7 D - Medications Given in the ED: ED Medications Discontinued Medications Generic Name Dose Route Start Last Admin Trade Name Osbaldo PRN Reason Stop Dose Admin Acetaminophen 1,000 mg 04/23/19 20:34 04/23/19 21:29 Ofirmev Injection - IVPB 04/23/19 20:35 1,000 mg ONCE ONE Administration Sodium Chloride 1,000 mls @ 1,000 mls/hr 04/23/19 19:19 04/23/19 19:42 Normal Saline - IV 04/23/19 20:18 1,000 mls/hr ASDIR STA Administration Ondansetron HCl 4 mg 04/23/19 19:19 04/23/19 19:42 Zofran Injection IVPUSH 04/23/19 19:20 4 mg ONCE ONE Administration Medical Decision Making - Medical Decision Making 04/23/19 21:50 Patient seen by the advanced practice provider under my direct supervision. Ancillary testing reviewed as necessary. I agree with plan as outlined by the advanced practice provider. Discharge - Discharge Information Problems reviewed: Yes Clinical Impression/Diagnosis: Gastroenteritis Disposition: HOME - Follow up/Referral - Patient Discharge Instructions Patient Printed Discharge Instructions: Viral Gastroenteritis Additional Instructions: Drink plenty of fluids start a BRAT ( bananas, rice apples toast) follow up with your doctor return to the ER if symptoms worsen - Post Discharge Activity Work/Back to School Note: Back to Work
== END 2019-04-23 22:45 | disposition home or self-care (01) ==
LOC: JER 17:51
PROC: 3E033GC Introduction of Other Therapeutic Substance into Peripheral Vein, Percutaneous Approach (ICD-10-PCS; principal; 2019-04-23)
PROC: 3E033GC Introduction of Other Therapeutic Substance into Peripheral Vein, Percutaneous Approach (ICD-10-PCS; 2019-04-23)
PROC: 3E033GC Introduction of Other Therapeutic Substance into Peripheral Vein, Percutaneous Approach (ICD-10-PCS; 2019-04-23)
PROC: 3E033NZ Introduction of Analgesics, Hypnotics, Sedatives into Peripheral Vein, Percutaneous Approach (ICD-10-PCS; 2019-04-23)
DX: K52.9 Noninfective gastroenteritis and colitis, unspecified (principal)
CPT/HCPCS: 36415; 80053; 81003; 83690; 84703; 85025; 96365; 96375; 99283-25; J0131; J7030

== ENCOUNTER 2019-07-14 07:30 | Emergency (ER) | payer OTHER ==
[2019-07-14 07:55] VITALS: BP 98/68; PULSE 72; TEMP 98; BMI 34.7
--- NOTE | 2019-07-14 08:23 | PDOC ---
History of Present Illness - General Chief Complaint: Pain Stated Complaint: GENERALIZED ACHES & PAIN WEAKNESS Time Seen by Provider: 07/14/19 08:01 - History of Present Illness Initial Comments: 07/14/19 08:18 CHIEF COMPLAINT: multiple HISTORY OF PRESENT ILLNESS: 24-year-old (one twin gestation) presents to ED with multiple complaints. 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 " Upon questioning, patient agreed that she also has had cough, runny nose, fever, abdominal pain, nausea, and diarrhea for the past two weeks. No recent travel or sick contacts. PAST MEDICAL HISTORY: blood clot (brain -no longer on blood thinners) FAMILY HISTORY: Denies SOCIAL HISTORY: Denies tobacco, alcohol, illicit drug use. SURGICAL HISTORY: Denies ALLERGIES: No known drug allergies REVIEW OF SYSTEMS General/Constitutional: Denies fever or chills. Denies weakness. HEENT: Denies change in vision. Denies ear pain or discharge. Denies sore throat. Cardiovascular: Denies chest pain or shortness of breath. Respiratory: Denies cough, wheezing, or hemoptysis. Gastrointestinal: Denies nausea, vomiting, diarrhea or constipation. Denies rectal bleeding. Genitourinary: Denies dysuria, frequency, or change in urination. Musculoskeletal: Denies joint or muscle swelling or pain. Denies neck or back pain. Skin and breasts: Denies rash or easy bruising. Neurologic: Denies headache, vertigo, loss of consciousness, or loss of sensation. Psychiatric: Denies depression or anxiety. PHYSICAL EXAM General Appearance: Well-appearing, appropriately dressed. No apparent distress , no intoxication. HEENT: EOMI, PERRLA, normal ENT inspection, normal voice, TMs normal, pharynx normal. No conjunctival pallor. No photophobia, scleral icterus. Neck: Supple. Trachea midline. No tenderness, rigidity, carotid bruit, stridor , lymphadenopathy, or thyromegaly. Respiratory/Chest: Lungs CTAB. No shortness of breath, chest tenderness, respiratory distress, accessory muscle use. No crackles, rales, rhonchi, stridor , wheezing, dullness Cardiovascular: RRR. S1, S2. No JVD, murmur, bradycardia, tachycardia. Vascular Pulses: Dorsalis-Pedis (R): 2+, Dorsalis-Pedis (L): 2+ Gastrointestinal/Abdominal: Normal bowel sounds. Abdomen soft, non-distended. No tenderness or rebound tenderness. No organomegaly, pulsatile mass, guarding , hernia, hepatomegaly, splenomegaly. Lymphatic: No adenopathy, tenderness. Musculoskeletal/Extremities: Normal inspection. FROM of all extremities, normal capillary refill. Pelvis Stable. No CVA tenderness. No tenderness to extremities, pedal edema, swelling, erythema or deformity. Integumentary: Appropriate color, dry, warm. No cyanosis, erythema, jaundice or rash Neurologic: roll over loader II-XII intact. Fully oriented, alert. Appropriate mood/affect. Motor strength 5/5. No appreciable EOM palsy, facial droop or sensory deficit. 07/14/19 08:28 Past History - Past Medical History Allergies/Adverse Reactions: Allergies Allergy/AdvReac Type Severity Reaction Status Date / Time No Known Allergies Allergy Verified 07/14/19 07:44 Home Medications: Ambulatory Orders NK [No Known Home Medication] 04/23/19 Asthma: No Cancer: No Cardiac Disorders: No COPD: No Diabetes: No HTN: No Seizures: No Thyroid Disease: No - Reproductive History (#): 3 Para: 5 Cervical CA: No Dysfunctional Uterine Bleeding: No Ectopic : No Endometrial CA: No Polycystic Ovaries: No Therapeutic (s) & number: No (denies) Tubal Ligation: No - Immunization History Immunization Up to Date: Yes - Psycho Social/Smoking Cessation Hx Smoking Status: No Smoking History: Never smoked Have you smoked in the past 12 months: No Number of Cigarettes Smoked Daily: 0 Hx Alcohol Use: No Drug/Substance Use Hx: No Substance Use Type: None Hx Substance Use Treatment: No *Physical Exam - Vital Signs Last Vital Signs Temp Pulse Resp BP Pulse Ox 98 F 72 16 98/68 99 07/14/19 07:44 07/14/19 07:44 07/14/19 07:44 07/14/19 07:44 07/14/19 07:44 Medical Decision Making - Medical Decision Making 07/14/19 08:32 24-year-old (one twin gestation) presents to ED with multiple complaints. Patient exam grossly unremarkable. VSS. -flu -UA, upreg 07/14/19 11:53 all labs negative. Patient requests to be d/c with a work note. Discharge - Discharge Information Problems reviewed: Yes Clinical Impression/Diagnosis: Fatigue Qualifiers: Fatigue type: unspecified Qualified Code(s): R53.83 - Other fatigue Condition: Stable Disposition: HOME - Admission No - Follow up/Referral Referrals: Lori Gonzales MD [Primary Care Provider] - - Patient Discharge Instructions Patient Printed Discharge Instructions: DI for Fatigue - Post Discharge Activity Work/Back to School Note: Back to Work
[2019-07-14] MEDS ORDERED: NAPROXEN 500 MG TABLET (FP) PO ONE (08:32)
[2019-07-14] MEDS ORDERED: NAPROXEN 500 MG TABLET (FP) ONE (08:44)
[2019-07-14 10:36] LABS: URINE APPEARANCE CLEAR; URINE BILIRUBIN NEGATIVE (NEGATIVE); URINE COLOR YELLOW; URINE GLUCOSE (UA) NEGATIVE (NEGATIVE); URINE KETONE NEGATIVE (NEGATIVE); URINE LEUK ESTERASE NEGATIVE (NEGATIVE); URINE NITRITE NEGATIVE (NEGATIVE); URINE PROTEIN NEGATIVE (NEGATIVE)
== END 2019-07-14 09:48 | disposition home or self-care (01) ==
LOC: JER 07:30
DX: R53.83 Other fatigue (principal)
CPT/HCPCS: 81003; 84703; 87804; 99282-25

== ENCOUNTER 2019-07-24 18:42 | Emergency (ER) | payer OTHER ==
[2019-07-24 18:49] VITALS: BP 145/74; PULSE 98; TEMP 98; BMI 34.7
[2019-07-24 19:36] LABS: PH,URINE 6.5 (5.0-8.0); URINE APPEARANCE CLEAR; URINE BILIRUBIN NEGATIVE (NEGATIVE); URINE COLOR YELLOW; URINE GLUCOSE (UA) NEGATIVE (NEGATIVE); URINE KETONE NEGATIVE (NEGATIVE); URINE LEUK ESTERASE NEGATIVE (NEGATIVE); URINE NITRITE NEGATIVE (NEGATIVE); URINE PROTEIN NEGATIVE (NEGATIVE)
--- NOTE | 2019-07-24 19:50 | PDOC ---
History of Present Illness - General Chief Complaint: Pain Stated Complaint: MUSCLE PAIN Time Seen by Provider: 07/24/19 19:09 History Source: Patient Exam Limitations: No Limitations - History of Present Illness Initial Comments: 07/24/19 19:47 24-year-old female presents to ED with complaints of generalized body aches, breast tenderness and decreased taste for the past week. Patient states LMP was 1218 but feels she may be . Patient states that home test a week ago which was negative. Is this a multiple visit Asthma Patient?: No Timing/Duration: other Severity: mild Associated Symptoms: reports: other Past History - Travel Traveled outside of the country in the last 30 days: No Close contact w/someone who was outside of country & ill: No - Past Medical History Allergies/Adverse Reactions: Allergies Allergy/AdvReac Type Severity Reaction Status Date / Time No Known Allergies Allergy Verified 07/24/19 18:49 Home Medications: Ambulatory Orders NK [No Known Home Medication] 04/23/19 Asthma: No Cancer: No Cardiac Disorders: No COPD: No Diabetes: No HTN: No Seizures: No Thyroid Disease: No - Reproductive History Is Patient Now?: No (#): 3 Para: 5 Cervical CA: No Dysfunctional Uterine Bleeding: No Ectopic : No Endometrial CA: No Polycystic Ovaries: No Therapeutic (s) & number: No Tubal Ligation: No - Immunization History Immunization Up to Date: Yes - Psycho Social/Smoking Cessation Hx Smoking Status: No Smoking History: Never smoked Have you smoked in the past 12 months: No Number of Cigarettes Smoked Daily: 0 Hx Alcohol Use: No Drug/Substance Use Hx: No Substance Use Type: None Hx Substance Use Treatment: No Patient Lives Alone: No Lives with/in: spouse/SO Review of Systems - Review of Systems Able to Perform ROS?: Yes Constitutional: No: Symptoms Reported HEENTM: No: Symptoms Reported Respiratory: No: Symptoms reported Cardiac (ROS): No: Symptoms Reported ABD/GI: No: Abdominal cramping, Other : No: Symptoms Reported Musculoskeletal: Yes: Muscle Pain Integumentary: No: Symptoms Reported Neurological: No: Symptoms reported Endocrine: No: Other *Physical Exam - Vital Signs Last Vital Signs Temp Pulse Resp BP Pulse Ox 98 F 98 H 18 145/74 98 07/24/19 18:46 07/24/19 18:46 07/24/19 18:46 07/24/19 18:46 07/24/19 18:46 - Physical Exam General Appearance: Yes: Nourished, Appropriately Dressed. No: Apparent Distress HEENT: negative: Pale Conjunctivae Neck: positive: Normal Thyroid Respiratory/Chest: positive: Lungs Clear, Normal Breath Sounds. negative: Respiratory Distress, Accessory Muscle Use Cardiovascular: positive: Regular Rhythm, Regular Rate. negative: Murmur Gastrointestinal/Abdominal: positive: Soft. negative: Distended, Tenderness Musculoskeletal: negative: CVA Tenderness Extremity: positive: Normal Inspection Integumentary: positive: Normal Color, Warm, Moist Neurologic: positive: Motor Strength 5/5 (Ambulatory) ED Treatment Course - ADDITIONAL ORDERS Additional order review: Laboratory Results 07/24/19 07/24/19 19:25 19:25 Urine Color Yellow Urine Appearance Clear Urine pH 6.5 Ur Specific [place] 1.025 Urine Protein Negative Urine Glucose (UA) Negative Urine Ketones Negative Urine Blood Negative Urine Nitrite Negative Urine Bilirubin Negative Urine Urobilinogen 1.0 Ur Leukocyte Esterase Negative Urine HCG, Qual Positive Medical Decision Making - Medical Decision Making 07/24/19 19:49 Chief complaint: Patient requesting testing for similar signs and symptoms of . Patient has no abdominal tenderness or complaints of vaginal bleeding/discharge or urinary complaints. Exam: Patient with no abdominal tenderness no distention vital signs stable. Plan: Urinalysis urine culture urine sent 07/24/19 19:50 Laboratory Tests 12/24/18 12/24/18 12/24/18 17:20 17:20 17:20 WBC 6.7 Hgb 12.1 Hct 37.1 D-Dimer 918 H Sodium Potassium Chloride Carbon Dioxide Anion Gap BUN Creatinine Random Glucose Calcium Total Bilirubin AST ALT Alkaline Phosphatase Total Protein Urine Color Yellow Urine Appearance Cloudy Ur Specific [place] Urine Protein Urine Glucose (UA) Urine Ketones Trace H Urine Blood Urine Nitrite Ur Leukocyte Esterase 2+ H Urine WBC (Auto) 87 Urine HCG, Qual 12/24/18 12/24/18 07/24/19 17:20 17:20 19:25 WBC Hgb Hct D-Dimer Sodium 140 Potassium 4.3 Chloride 108 H Carbon Dioxide 27 Anion Gap 6 L BUN 12.4 Creatinine 0.8 Random Glucose 80 Calcium 9.6 Total Bilirubin 1.1 H AST 16 ALT 21 Alkaline Phosphatase 71 Total Protein 8.4 H Urine Color Urine Appearance Ur Specific [place] Urine Protein Urine Glucose (UA) Urine Ketones Urine Blood Urine Nitrite Ur Leukocyte Esterase Urine WBC (Auto) Urine HCG, Qual Negative Positive 07/24/19 19:25 WBC Hgb Hct D-Dimer Sodium Potassium Chloride Carbon Dioxide Anion Gap BUN Creatinine Random Glucose Calcium Total Bilirubin AST ALT Alkaline Phosphatase Total Protein Urine Color Yellow Urine Appearance Clear Ur Specific [place] 1.025 Urine Protein Negative Urine Glucose (UA) Negative Urine Ketones Negative Urine Blood Negative Urine Nitrite Negative Ur Leukocyte Esterase Negative Urine WBC (Auto) Urine HCG, Qual Patient will [facility]-up at [facility] Discharge - Discharge Information Problems reviewed: Yes Clinical Impression/Diagnosis: at early stage Condition: Good Disposition: HOME - Follow up/Referral Referrals: Lanny Martinez MD [Staff Physician] - - Patient Discharge Instructions Patient Printed Discharge Instructions: DI for -- Discomforts and Remedies Additional Instructions: Drink plenty of fluids take Tylenol for discomfort. Follow-up with [facility] [employer]CHNICIAN - Post Discharge Activity
== END 2019-07-24 20:02 | disposition home or self-care (01) ==
LOC: JERFT 18:42
DX: O26.891 Other specified pregnancy related conditions, first trimester (principal); Z3A.01 Less than 8 weeks gestation of pregnancy
CPT/HCPCS: 81003; 84703; 99282-25

== ENCOUNTER 2019-08-23 11:43 | Emergency (ER) | payer OTHER ==
[2019-08-23 11:53] VITALS: BMI 35.4
--- NOTE | 2019-08-23 12:31 | PDOC ---
History of Present Illness - General Chief Complaint: Vaginal Bleeding Stated Complaint: 7WKS/ BLEEDING Time Seen by Provider: 08/23/19 12:28 - History of Present Illness Initial Comments: 08/23/19 13:37 24 y/o F 7wks , no significant medical hx, presents today with 1 day of vaginal spotting as well as nausea and vomiting. She began to have increased nausea after eating some macedonian food yesterday (rice + beef+ broccoli ). She denies any associated abdominal pain or cramping, or previous hx of miscarriage or ectopic . She was last seen by her OB last week and she reports ultrsa Past History - Past Medical History Allergies/Adverse Reactions: Allergies Allergy/AdvReac Type Severity Reaction Status Date / Time No Known Allergies Allergy Verified 07/24/19 18:49 Home Medications: Ambulatory Orders NK [No Known Home Medication] 04/23/19 Asthma: No Cancer: No Cardiac Disorders: No COPD: No Diabetes: No HTN: No Seizures: No Thyroid Disease: No - Reproductive History (#): 3 Para: 5 Cervical CA: No Dysfunctional Uterine Bleeding: No Ectopic : No Endometrial CA: No Polycystic Ovaries: No Therapeutic (s) & number: No Tubal Ligation: No - Immunization History Immunization Up to Date: Yes - Psycho Social/Smoking Cessation Hx Smoking Status: No Smoking History: Never smoked Have you smoked in the past 12 months: No Number of Cigarettes Smoked Daily: 0 Information on smoking cessation initiated: No Hx Alcohol Use: No Drug/Substance Use Hx: No Substance Use Type: None Hx Substance Use Treatment: No *Physical Exam - Vital Signs Last Vital Signs Temp Pulse Resp BP Pulse Ox 98.2 F 75 18 107/56 L 100 08/23/19 11:50 08/23/19 11:50 08/23/19 11:50 08/23/19 11:50 08/23/19 11:50 - Physical Exam 08/23/19 14:48 GENERAL:Well developed, well nourished. Awake and alert. No acute distress. HEENT:Normocephalic, atraumatic. PERRLA, EOMI. No conjunctival pallor. Sclera are non-icteric. Moist mucous membranes. Oropharynx is clear. NECK: Supple. Full ROM. No JVD. Carotid pulses 2+ and symmetric, without bruits. No thyromegaly. No lymphadenopathy. CARDIOVASCULAR:Regular rate and rhythm. No murmurs, rubs, or gallops. Distal pulses are 2+ and symmetric. PULMONARY: No evidence of respiratory distress. Lungs clear to auscultation bilaterally. No wheezing, rales or rhonchi. ABDOMINAL:Soft. Non-tender. Non-distended. No rebound or guarding. No organomegaly. Normoactive bowel sounds. PELVIC: no rashes/lesions, no blood in vaginal vault. white discharge. negative adnexal tenderness, or CMT MUSCULOSKELETAL Normal range of motion at all joints. No bony deformities or tenderness. No CVA tenderness. EXTREMITIES: No cyanosis. No clubbing. No edema. No calf tenderness. SKIN: Warm and dry. Normal capillary refill. No rashes. No jaundice. NEUROLOGICAL: Alert, awake, appropriate. Cranial nerves 2-12 intact. Gait is normal without ataxia. PSYCHIATRIC: Cooperative. Good eye contact. Appropriate mood and affect. ED Treatment Course - LABORATORY CBC & Chemistry Diagram: 08/23/19 13:58 08/23/19 13:58 Medical Decision Making - Medical Decision Making 08/23/19 14:53 24 y/o F 7wks , no significant medical hx, presents today with 1 day of vaginal spotting as well as nausea and vomiting. cbc, cmp, type and screen. ultrasound 08/23/19 15:54 -ultrasound shows viable IUP -FHR of 145 bpm -Dispo after meds Discharge - Discharge Information Problems reviewed: Yes Clinical Impression/Diagnosis: Vaginal spotting Qualifiers: Weeks of gestation: less than 8 weeks Qualified Code(s): Z3A.01 - Less than 8 weeks gestation of Condition: Stable Disposition: HOME - Admission No - Follow up/Referral - Patient Discharge Instructions Patient Printed Discharge Instructions: DI for Vaginal Bleeding During Additional Instructions: You should return to the hospital if you continue to have persistent and heavy vaginal bleeding, persistent pelvic pain not relieved by your prescribed medications, dizziness, shortness of breath, new and persistent fevers, other foul smelling discolored vaginal discharge, or for any other concerns. - Post Discharge Activity
[2019-08-23] MEDS ORDERED: SODIUM CHLORIDE 0.9% 500 ML INFUS.BAG IV ONE (13:28)
[2019-08-23] MEDS ORDERED: ONDANSETRON 4 MG/2 ML VIAL IVPUSH ONE (13:28)
[2019-08-23 14:25] LABS: BASO % 0.1 % (0-2.0); EOS % 0.2 % (0-4.5); HEMATOCRIT 35.9 % (32.4-45.2); HEMOGLOBIN 11.9 GM/dL (10.7-15.3); LYMPH % 16.8 % (8-40); MCH 26.7 pg (25.7-33.7); MEAN PLT VOLUME 8.8 fl (7.5-11.1); MONO % 5.3 % (3.8-10.2); NEUT % 77.6 % (42.8-82.8); PLATELET COUNT 256 K/MM3 (134-434); RBC 4.44 M/mm3 (3.60-5.2); RDW 14.2 % (11.6-15.6); WHITE BLOOD COUNT 6.4 K/mm3 (4.0-10.0)
[2019-08-23 14:37] LABS: INR 1.01 (0.83-1.09); PROTHROMBIN TIME (PATIENT) 11.9 SEC (9.7-13.0)
[2019-08-23 14:39] LABS: ACTIVATED PTT 31.7 SECONDS (25.2-36.5)
[2019-08-23 15:31] LABS: ALBUMIN 3.6 g/dl (3.4-5.0); BILIRUBIN,TOTAL 0.8 mg/dL (0.2-1); BLOOD UREA NITROGEN 7.4 mg/dL (7-18); CREATININE 0.6 mg/dL (0.55-1.3); TOT PROT 7.7 g/dl (6.4-8.2)
--- NOTE | 2019-08-23 15:36 | PDOC ---
Attending Attestation - Resident Resident Name: Surijt Landry - ED Attending Attestation I have performed the following: I have examined & evaluated the patient, The case was reviewed & discussed with the resident, I agree w/resident's findings & plan - HPI HPI: 08/23/19 15:33 Healthy 24-year-old female G6, P6 (one twin ) LMP about 7 weeks presents with painless vaginal spotting today, noted on urination. No frequency or dysuria, no fevers or chills, no clots or tissue. - Physicial Exam PE: 08/23/19 15:34 Vital signs stable Well-appearing and ambulatory Abdomen benign Pelvic per resident - Medical Decision Making 08/23/19 15:34 24-year-old female at 7 weeks gestation with first trimester vaginal bleeding, hemodynamically stable with benign abdominal exam. Check labs including type and screen Endovascular ultrasound to rule out ectopic Disposition accordingly
[2019-08-23] MEDS ORDERED: ONDANSETRON 4 MG/2 ML VIAL ONE (16:01)
[2019-08-23] MEDS ORDERED: ACETAMINOPHEN 500 MG TABLET (FP) PO ONE (16:31)
[2019-08-23] MEDS ORDERED: ACETAMINOPHEN 325 MG TABLET (FP) ONE (16:32)
[2019-08-23 17:38] VITALS: BP 111/74; PULSE 81; TEMP 98
== END 2019-08-23 17:38 | disposition home or self-care (01) ==
LOC: JER 11:43
PROC: 3E033GC Introduction of Other Therapeutic Substance into Peripheral Vein, Percutaneous Approach (ICD-10-PCS; principal; 2019-08-23)
DX: O26.891 Other specified pregnancy related conditions, first trimester (principal); N93.9 Abnormal uterine and vaginal bleeding, unspecified; Z3A.01 Less than 8 weeks gestation of pregnancy
CPT/HCPCS: 36415; 76817-TC; 80053; 84703; 85025; 85610; 85730; 86850; 86900; 86901; 99284-25

== ENCOUNTER 2019-09-13 09:48 | Emergency (ER) | payer OTHER ==
[2019-09-13 09:58] VITALS: BP 103/61; PULSE 86; TEMP 97.9; BMI 32.5
[2019-09-13] MEDS ORDERED: SODIUM CHLORIDE 1,000 ML IV STA ×2 (10:20→11:30)
[2019-09-13] MEDS ORDERED: ONDANSETRON 4 MG/2 ML VIAL IVPUSH ONE (10:20)
[2019-09-13] MEDS ORDERED: ONDANSETRON 4 MG/2 ML VIAL ONE (10:22)
[2019-09-13] MEDS ORDERED: ACETAMINOPHEN 1000 MG/100 ML VIAL (NON FORMULARY) IVPB ONE (10:31)
[2019-09-13] MEDS ORDERED: ACETAMINOPHEN INJECTION 100 ML IVPB ONE (10:35)
[2019-09-13 10:43] LABS: BASO % 0.1 % (0-2.0); EOS % 0.1 % (0-4.5); HEMATOCRIT 36.3 % (32.4-45.2); HEMOGLOBIN 12.3 GM/dL (10.7-15.3); LYMPH % 17.5 % (8-40); MCH 26.7 pg (25.7-33.7); MCHC 33.8 g/dl (32.0-36.0); MEAN PLT VOLUME 8.3 fl (7.5-11.1); NEUT % 78.3 % (42.8-82.8); PLATELET COUNT 240 K/MM3 (134-434); RBC 4.59 M/mm3 (3.60-5.2); RDW 13.3 % (11.6-15.6); WHITE BLOOD COUNT 5.5 K/mm3 (4.0-10.0)
[2019-09-13 11:16] LABS: ALBUMIN 3.5 g/dl (3.4-5.0); BILIRUBIN,TOTAL 0.6 mg/dL (0.2-1); BLOOD UREA NITROGEN 8.8 mg/dL (7-18); CALCIUM 9.5 mg/dL (8.5-10.1); CREATININE 0.6 mg/dL (0.55-1.3); MAGNESIUM 1.9 mg/dL (1.8-2.4); POTASSIUM 4.2 mmol/L (3.5-5.1); TOT PROT 7.8 g/dl (6.4-8.2)
--- NOTE | 2019-09-13 11:16 | PDOC ---
History of Present Illness <Jessica Duarte Aubriegita - Last Filed: 09/13/19 11:57> - General History Source: Patient Exam Limitations: No Limitations - History of Present Illness Travel History: No Initial Comments: 09/13/19 11:13 24-year-old female currently 11 weeks presents to ED with complaints of nausea and vomiting intermittently since onset of . Patient also complained of mild frontal headache and states she feels dehydrated. Patient has no abdominal pain, urinary complaints, fever or chills. Timing/Duration: reports: intermittent Quality: reports: mild Aggravating Factors: improves with: Eating Alleviating Factors: improves with: Vomiting <Lamonte Solisa - Last Filed: 09/13/19 14:18> - General Chief Complaint: Nausea/Vomiting Stated Complaint: DEHYDR/11WKS PREG Time Seen by Provider: 09/13/19 10:19 Past History <Jessica Duarte Rachael - Last Filed: 09/13/19 11:57> - Travel Traveled outside of the country in the last 30 days: No Close contact w/someone who was outside of country & ill: No - Past Medical History Asthma: No Cancer: No Cardiac Disorders: No COPD: No Diabetes: No HTN: No Seizures: No Thyroid Disease: No - Reproductive History (#): 3 Para: 5 Cervical CA: No Dysfunctional Uterine Bleeding: No Ectopic : No Endometrial CA: No Polycystic Ovaries: No Therapeutic (s) & number: No Tubal Ligation: No - Immunization History Immunization Up to Date: Yes - Psycho Social/Smoking Cessation Hx Smoking Status: No Smoking History: Unknown if ever smoked Have you smoked in the past 12 months: No Number of Cigarettes Smoked Daily: 0 Hx Alcohol Use: No Drug/Substance Use Hx: No Substance Use Type: None Hx Substance Use Treatment: No Patient Lives Alone: No Lives with/in: spouse/SO <Vickie Solis - Last Filed: 09/13/19 14:18> - Past Medical History Allergies/Adverse Reactions: Allergies Allergy/AdvReac Type Severity Reaction Status Date / Time No Known Allergies Allergy Verified 09/13/19 09:54 Home Medications: Ambulatory Orders Ondansetron HCl [Zofran] 4 mg PO TID PRN #12 tablet 09/13/19 47/Iron/Folate 1/Dha [Virt-Pn Dha Softgel] 1 tab PO DAILY 09/13/19 Review of Systems - Review of Systems Able to Perform ROS?: No Is the patient limited Yakut proficient: No Constitutional: No: Symptoms Reported HEENTM: No: Symptoms Reported Respiratory: No: Symptoms reported Cardiac (ROS): No: Symptoms Reported ABD/GI: Yes: Diarrhea, Nausea, Vomiting, Abdominal cramping. No: Poor Appetite , Poor Fluid Intake : No: Symptoms Reported Musculoskeletal: No: Symptoms Reported Integumentary: No: Symptoms Reported Neurological: No: Symptoms reported Endocrine: No: Symptoms Reported Hematologic/Lymphatic: No: Symptoms Reported <Vickie Solis - Last Filed: 09/13/19 14:18> *Physical Exam - Vital Signs Last Vital Signs Temp Pulse Resp BP Pulse Ox 97.9 F 86 18 103/61 100 09/13/19 09:55 09/13/19 09:55 09/13/19 09:55 09/13/19 09:55 09/13/19 09:55 <Jessica Duarte - Last Filed: 09/13/19 11:57> - Vital Signs Last Vital Signs Temp Pulse Resp BP Pulse Ox 97.9 F 86 18 103/61 100 09/13/19 09:55 09/13/19 09:55 09/13/19 09:55 09/13/19 09:55 09/13/19 09:55 - Physical Exam General Appearance: Yes: Nourished, Appropriately Dressed. No: Apparent Distress HEENT: negative: Pale Conjunctivae Respiratory/Chest: positive: Lungs Clear, Normal Breath Sounds. negative: Respiratory Distress, Accessory Muscle Use Cardiovascular: positive: Regular Rhythm, Regular Rate. negative: Tachycardia Gastrointestinal/Abdominal: positive: Soft. negative: Tenderness Extremity: positive: Normal Inspection Integumentary: positive: Normal Color, Warm, Moist Neurologic: positive: Motor Strength 5/5 (ambulatory) <Vickie Solis - Last Filed: 09/13/19 14:18> ED Treatment Course - LABORATORY CBC & Chemistry Diagram: 09/13/19 10:30 09/13/19 10:30 - ADDITIONAL ORDERS Additional order review: Laboratory Results 09/13/19 10:30 Sodium 137 Potassium 4.2 Chloride 103 Carbon Dioxide 28 Anion Gap 6 L BUN 8.8 Creatinine 0.6 Est GFR (CKD-EPI)AfAm 148.90 Est GFR (CKD-EPI)NonAf 128.48 Random Glucose 81 Calcium 9.5 Magnesium 1.9 Total Bilirubin 0.6 AST 13 L ALT 20 Alkaline Phosphatase 60 Total Protein 7.8 Albumin 3.5 09/13/19 10:30 RBC 4.59 MCV 79.0 L MCHC 33.8 RDW 13.3 MPV 8.3 Neutrophils % 78.3 Lymphocytes % 17.5 Monocytes % 4.0 Eosinophils % 0.1 Basophils % 0.1 - Medications Given in the ED: ED Medications Discontinued Medications Generic Name Dose Route Start Last Admin Trade Name Freq PRN Reason Stop Dose Admin Acetaminophen 1,000 mg 09/13/19 10:31 09/13/19 10:39 Ofirmev Injection - IVPB 09/13/19 10:32 1,000 mg ONCE ONE Administration Sodium Chloride 1,000 mls @ 1,000 mls/hr 09/13/19 10:20 09/13/19 10:25 Normal Saline - IV 09/13/19 11:19 1,000 mls/hr ASDIR STA Administration Ondansetron HCl 4 mg 09/13/19 10:20 09/13/19 10:25 Zofran Injection IVPUSH 09/13/19 10:21 4 mg ONCE ONE Administration <Jessica Duarte - Last Filed: 09/13/19 11:57> - LABORATORY CBC & Chemistry Diagram: 09/13/19 10:30 09/13/19 10:30 - ADDITIONAL ORDERS Additional order review: 09/13/19 10:30 RBC 4.59 MCV 79.0 L MCHC 33.8 RDW 13.3 MPV 8.3 Neutrophils % 78.3 Lymphocytes % 17.5 Monocytes % 4.0 Eosinophils % 0.1 Basophils % 0.1 - Medications Given in the ED: ED Medications Discontinued Medications Generic Name Dose Route Start Last Admin Trade Name Freq PRN Reason Stop Dose Admin Acetaminophen 1,000 mg 09/13/19 10:31 09/13/19 10:39 Ofirmev Injection - IVPB 09/13/19 10:32 1,000 mg ONCE ONE Administration Ondansetron HCl 4 mg 09/13/19 10:20 09/13/19 10:25 Zofran Injection IVPUSH 09/13/19 10:21 4 mg ONCE ONE Administration <Vickie Solis - Last Filed: 09/13/19 14:18> Medical Decision Making - Medical Decision Making The patient was seen and evaluated in conjunction with midlevel provider under my direct supervision, ancillary studies were reviewed. I agree with the plan as outlined with BROOKE Solis. HPI, workup/dispo as outlined. VS reviewed, wnl. Vital Signs Temp Pulse Resp BP Pulse Ox 97.9 F 86 18 103/61 100 09/13/19 09:55 09/13/19 09:55 09/13/19 09:55 09/13/19 09:55 09/13/19 09:55 labs and lytes wnl, reassuring. anticipate discharge, pcp followup, return precautions 09/13/19 11:27 09/13/19 11:27 <Jessica Duarte - Last Filed: 09/13/19 11:57> - Medical Decision Making 09/13/19 11:02 Chief complaint: Nausea and vomiting since onset of . Patient states was given IV fluids and Zofran on previous visit which worked for about a week. Patient has no other complaints at this time. Exam: Vital signs stable. No abdominal tenderness, in no acute distress. Plan: IV Tylenol, IV fluids, Zofran labs and urine ordered 09/13/19 14:12 Laboratory Tests 09/13/19 09/13/19 09/13/19 10:30 10:30 13:05 WBC 5.5 Hgb 12.3 Hct 36.3 Neutrophils % 78.3 Sodium 137 Potassium 4.2 Chloride 103 Carbon Dioxide 28 Anion Gap 6 L BUN 8.8 Creatinine 0.6 Est GFR (CKD-EPI)AfAm 148.90 Est GFR (CKD-EPI)NonAf 128.48 Random Glucose 81 Calcium 9.5 Magnesium 1.9 Total Bilirubin 0.6 AST 13 L ALT 20 Alkaline Phosphatase 60 Total Protein 7.8 Albumin 3.5 Urine Color Yellow Urine Appearance Clear Urine pH 6.5 Ur Specific [place] 1.023 Urine Protein Negative Urine Glucose (UA) Negative Urine Ketones Negative Urine Blood Negative Urine Nitrite Negative Urine Bilirubin Negative Ur Leukocyte Esterase Negative Patient states feeling better. Will discharge patient home with Zofran. Patient also understands importance of eating small frequent meals containing vital nutrition including carbohydrates protein and vitamins <Vickie Solis - Last Filed: 09/13/19 14:18> Discharge <Jessica Duarte - Last Filed: 09/13/19 11:57> - Discharge Information Problems reviewed: Yes <Vickie Solis - Last Filed: 09/13/19 14:18> - Discharge Information Clinical Impression/Diagnosis: Vomiting during Condition: Improved Disposition: HOME - Additional Discharge Information Prescriptions: Ondansetron HCl [Zofran] 4 mg PO TID PRN #12 tablet PRN Reason: Nausea And/Or Vomiting - Patient Discharge Instructions Patient Printed Discharge Instructions: DI for Hyperemesis Gravidarum Additional Instructions: Try small frequent snacks/meals such as popcorn, blueberries, nuts, and bread. Please take Zofran as needed for nausea . Follow-up with your primary care physician. Also follow-up with neurologist as discussed in regards to infrequent headaches. May take Tylenol for headaches and discomfort
[2019-09-13 13:48] LABS: PH,URINE 6.5 (5.0-8.0); URINE APPEARANCE CLEAR; URINE BILIRUBIN NEGATIVE (NEGATIVE); URINE COLOR YELLOW; URINE GLUCOSE (UA) NEGATIVE (NEGATIVE); URINE KETONE NEGATIVE (NEGATIVE); URINE LEUK ESTERASE NEGATIVE (NEGATIVE); URINE NITRITE NEGATIVE (NEGATIVE); URINE PROTEIN NEGATIVE (NEGATIVE); URINE UROBILINOGEN 0.2 mg/dL (0.2-1.0)
== END 2019-09-13 14:34 | disposition home or self-care (01) ==
LOC: JER 09:48
PROC: 3E0337Z Introduction of Electrolytic and Water Balance Substance into Peripheral Vein, Percutaneous Approach (ICD-10-PCS; principal; 2019-09-13)
PROC: 3E033NZ Introduction of Analgesics, Hypnotics, Sedatives into Peripheral Vein, Percutaneous Approach (ICD-10-PCS; 2019-09-13)
PROC: 3E033GC Introduction of Other Therapeutic Substance into Peripheral Vein, Percutaneous Approach (ICD-10-PCS; 2019-09-13)
DX: O26.891 Other specified pregnancy related conditions, first trimester (principal); O21.0 Mild hyperemesis gravidarum; Z3A.11 11 weeks gestation of pregnancy
CPT/HCPCS: 36415; 80053; 81003; 83735; 85025; 87086; 96361; 96374; 96375; 99284-25; J0131; J7030

== ENCOUNTER 2019-09-20 18:56 | Emergency (ER) | payer OTHER ==
--- NOTE | 2019-09-20 19:02 | PDOC ---
Rapid Medical Evaluation Time Seen by Provider: 09/20/19 19:01 Medical Evaluation: Allergies Allergy/AdvReac Type Severity Reaction Status Date / Time No Known Allergies Allergy Verified 09/13/19 09:54 09/20/19 19:01 I have performed a brief in-person evaluation of this patient. The patient presents with a chief complaint of: 12 wk pt with vomiting since yesterday. Saw OB today and was told if symptoms worsened to come in to ED Pertinent physical exam findings: well appearing, diffuse abd tenderness I have ordered the following: labs The patient will proceed to the ED for further evaluation. Discharge Disposition - Diagnosis Abdominal pain during - Referrals - Patient Instructions - Post Discharge Activity
[2019-09-20 19:04] VITALS: BMI 32.8
[2019-09-20] MEDS ORDERED: ONDANSETRON 4 MG/2 ML VIAL IVPUSH ONE (19:48)
[2019-09-20] MEDS ORDERED: FAMOTIDINE 20 MG/50 ML IVPB 20 MG/50 ML MG IVPB ONE ×2 (19:48→20:07)
[2019-09-20] MEDS ORDERED: LACTATED RINGERS SOLUTION 1000 ML INFUS.BAG IV ONE ×2 (19:48→21:17)
[2019-09-20] MEDS ORDERED: ACETAMINOPHEN 1000 MG/100 ML VIAL (NON FORMULARY) IVPB ONE (19:48)
--- NOTE | 2019-09-20 19:56 | PDOC ---
History of Present Illness - General Chief Complaint: Nausea/Vomiting Stated Complaint: VOMITTING BLOOD Time Seen by Provider: 09/20/19 19:01 - History of Present Illness Initial Comments: The pt is a 24F at 12w4d by US who presents for evaluation of nausea and bloody emesis. The pt reports several days of emesis that became bloody today. She states that she has had blood streaked emesis today but has never had it in previous pregnancies or in this . She reports eating Vincentian food two days ago, after which she noticed worsening vomiting. Denies fevers/chills, cough, diarrhea, dysuria, hematuria, or vaginal bleeding/discharge. 09/20/19 20:12 Past History - Past Medical History Allergies/Adverse Reactions: Allergies Allergy/AdvReac Type Severity Reaction Status Date / Time No Known Allergies Allergy Verified 09/20/19 19:04 Home Medications: Ambulatory Orders Ondansetron HCl [Zofran] 4 mg PO TID PRN #12 tablet 09/13/19 47/Iron/Folate 1/Dha [Virt-Pn Dha Softgel] 1 tab PO DAILY 09/13/19 Doxylamine Succinate/Vit B6 [Carina Dr 10-10 mg Tablet] 1 each PO BID #30 tablet. 09/20/19 Promethazine HCl [Phenergan Suppository -] 12.5 mg RC Q6H #21 supp.rect 09/20/19 Asthma: No Cancer: No Cardiac Disorders: No COPD: No Diabetes: No HTN: No Seizures: No Thyroid Disease: No - Reproductive History (#): 3 Para: 5 Cervical CA: No Dysfunctional Uterine Bleeding: No Ectopic : No Endometrial CA: No Polycystic Ovaries: No Therapeutic (s) & number: No Tubal Ligation: No - Immunization History Immunization Up to Date: Yes - Psycho Social/Smoking Cessation Hx Smoking Status: No Smoking History: Never smoked Have you smoked in the past 12 months: No Number of Cigarettes Smoked Daily: 0 Hx Alcohol Use: No Drug/Substance Use Hx: No Substance Use Type: None Hx Substance Use Treatment: No Review of Systems - Review of Systems Able to Perform ROS?: Yes Comments:: GENERAL/CONSTITUTIONAL: No fever or chills. No weakness HEAD, EYES, EARS, NOSE AND THROAT: No change in vision. No change in hearing. No sore throat CARDIOVASCULAR: No chest pain or shortness of breath RESPIRATORY: Denies cough, hemoptysis GASTROINTESTINAL: +N/V; denies diarrhea or constipation GENITOURINARY: No dysuria, frequency, or change in urination MUSCULOSKELETAL: No joint or muscle swelling or pain. No neck or back pain SKIN: No rash NEUROLOGIC: No headache, vertigo, loss of consciousness, or change in strength/sensation ENDOCRINE: No increased thirst. No abnormal weight change HEMATOLOGIC/LYMPHATIC: +history of DVT after previous ALLERGIC/IMMUNOLOGIC: No hives or skin allergy 09/20/19 20:16 Is the patient limited Sinhala proficient: No *Physical Exam - Vital Signs Last Vital Signs Temp Pulse Resp BP Pulse Ox 98.2 F 95 H 18 132/73 95 09/20/19 19:01 09/20/19 19:01 09/20/19 19:01 09/20/19 19:09/20/19 19:01 - Physical Exam GENERAL: Awake, alert, and oriented to person/place/time, in no acute distress HEAD: No signs of trauma, normocephalic, atraumatic EYES: PERRLA, EOMI, sclera anicteric, conjunctiva clear ENT: Hearing grossly normal, nares patent, oropharynx clear without exudates. Moist mucosa LUNGS: No distress, speaks in full sentences, clear to auscultation bilaterally HEART: Regular rate and rhythm, normal S1 and S2, no murmurs appreciated, peripheral pulses normal and equal bilaterally ABDOMEN: Soft, gravid abdomen, epigastric TTP w/o rebound or guarding, normoactive bowel sounds EXTREMITIES: Normal inspection, Normal range of motion, no edema. No clubbing or cyanosis NEUROLOGICAL: Cranial nerves II through XII grossly intact. Normal speech, normal gait, no focal sensorimotor deficits SKIN: Warm, Dry, normal turgor, no rashes or lesions noted 09/20/19 20:17 ED Treatment Course - LABORATORY CBC & Chemistry Diagram: 09/20/19 19:45 09/20/19 19:45 Medical Decision Making - Medical Decision Making The pt is a 24F at 12w4d by US who presents for evaluation of nausea and hematemesis. ED Course CMP, CBC, Beta-quant, T/S, UA, UCx IVF, Pepcid, Zofran POCUS Preg 09/20/19 20:17 Pt w/ persistent epigastric pain Will give addition 1L LR and Maalox 09/20/19 21:18 No leukocytosis No anemia Lytes unremarkable No HOMERO LFTs wnl 09/20/19 21:46 UA w/o evidence of UTI 09/20/19 22:16 Case discussed w/ Dr. Martinez, will Rx Diclegis and KS phenergan Pt tolerating PO in ED Plan for D/C w/ OBGYN f/u Discharge instructions and return precautions given Patient in agreement and verbalized understanding Dispo: Home 09/20/19 22:44 Discharge - Discharge Information Problems reviewed: Yes Clinical Impression/Diagnosis: Hyperemesis gravidarum Abdominal pain during Qualifiers: Trimester: first trimester Qualified Code(s): O26.891 - Other specified related conditions, first trimester Condition: Stable - Admission No - Follow up/Referral - Patient Discharge Instructions Patient Printed Discharge Instructions: DI for Hyperemesis Gravidarum Additional Instructions: You were seen in the Emergency Department for evaluation of nausea and vomiting during . Your labs were unremarkable. Review the handout provided at discharge. Follow up with your OBGYN. Avoid heavily flavored foods and spicy foods. Start with water/gatorade sips and advance as tolerated. If you try to incorporate solids and vomit, go back to liquids and try advancing slowly again over several hours. A prescription for Diclegis oral and Phenergan rectal was sent to your pharmacy, take as directed. Return to the Emergency Department if you develop fevers, chills, inability to tolerate liquids, persistent blood in your vomit, diarrhea, vaginal bleeding/discharge, worsening symptoms, or any new/concerning symptoms. - Post Discharge Activity Work/Back to School Note: Back to Work
[2019-09-20 20:05] LABS: BASO % 0.2 % (0-2.0); EOS % 0.4 % (0-4.5); HEMATOCRIT 35.8 % (32.4-45.2); LYMPH % 20.6 % (8-40); MCH 26.7 pg (25.7-33.7); MCHC 33.5 g/dl (32.0-36.0); MEAN CELL VOLUME 79.7 fl (80-96); MEAN PLT VOLUME 8.5 fl (7.5-11.1); MONO % 6.4 % (3.8-10.2); NEUT % 72.4 % (42.8-82.8); PLATELET COUNT 271 K/MM3 (134-434); RDW 13.4 % (11.6-15.6); WHITE BLOOD COUNT 6.2 K/mm3 (4.0-10.0)
[2019-09-20] MEDS ORDERED: ACETAMINOPHEN INJECTION 100 ML IVPB ONE (20:07)
[2019-09-20] MEDS ORDERED: ONDANSETRON 4 MG/2 ML VIAL ONE (20:07)
--- NOTE | 2019-09-20 20:24 | PDOC ---
Documentation entered by Lenin Tejada SCRIBE, acting as scribe for Anne Pride DO. Anne Pride DO: This documentation has been prepared by the Terrell kim Daniel, SCRIBE, under my direction and personally reviewed by me in its entirety. I confirm that the documentation accurately reflects all work, treatment, procedures, and medical decision making performed by me. Attending Attestation - Resident Resident Name: KaygermánRenny - ED Attending Attestation I have performed the following: I have examined & evaluated the patient, The case was reviewed & discussed with the resident, I agree w/resident's findings & plan, Exceptions are as noted - HPI HPI: 09/20/19 20:00 The patient is a 24 year old female with no past medical history here today for evaluation of vomiting. The patient reports that she is 12 weeks by ultrasound which she had today. She states that she has been vomiting throughout her but today was worse after eating Serbian food and had blood tinged vomit and then bloody vomit which. She notes associated nausea and epigastric pain. Patient denies headache, lightheadedness. Denies fever, chills. Denies chest pain, shortness of breath. Denies diarrhea. Denies vaginal bleeding, discharge. Allergies: NKA - Physicial Exam PE: 09/20/19 20:20 Constitutional: Awake, alert, oriented. No acute distress. Head: Normocephalic. Atraumatic Eyes: PERRL. EOMI. Conjunctivae are not pale. ENT: Mucous membranes are moist and intact. Posterior pharynx without exudates or erythema. Uvula midline. Neck: Supple. Full ROM. No lymphadenopathy. Cardiovascular: Regular rate. Regular rhythm. S1, S2 regular. Distal pulses are 2+ and symmetric. Pulmonary/Chest: No evidence of respiratory distress. Clear to auscultation bilaterally No wheezing, rales or rhonchi. Abdominal: +epigastric tenderness. Soft and non-distended. There is no lower abdominal tenderness. No rebound, guarding or rigidity. No organomegaly. No palpable masses. Good bowel sounds. Back: No CVA tenderness. Musculoskeletal: No edema. No cyanosis. No clubbing. Full range of motion in all extremities. No calf tenderness. Radial/pedal pulses are intact and 2+ bilaterally Skin: Skin is warm and dry. No petechiae. No purpura. Neurological: Alert and oriented to person, place, and time. Cranial nerves II-XII are grossly intact. Normal speech. Strength is grossly symmetric. No sensory deficits. Psychiatric: Good eye contact. Normal interaction, affect and behavior. - Medical Decision Making 09/20/19 20:22 a/p: 24yo at 12 weeks gestation with n/v and inability to tolerate po -pt ate turkmen food, vomiting since, worse vomiting yesterday, but today with specks of blood -no active vomiting -no diarrhea -pt saw dr. crystal earlier today and told if symptoms don't improve to come to the Er -will send labs, ivf hydation -suspect blood in vomit is from ale brito -will give tylenol, nausea meds -will discuss with dr. crystal with lab results -pt currently smiling, happy, in nad 09/20/19 22:09 lab reviewed 09/20/19 22:09 pt is O+ no vomiting in the er 09/20/19 22:11 pt feeling better will po challenge and discuss with spring fitter 09/20/19 22:45 pt has tolerated po intake resident discussed the case with dr. crystal who recommends diclegis and phenergan stable for dc to home and follow up with spring fitter as outpt
[2019-09-20 20:55] LABS: ALBUMIN 3.5 g/dl (3.4-5.0); BILIRUBIN,TOTAL 0.2 mg/dL (0.2-1); CALCIUM 9.1 mg/dL (8.5-10.1); CREATININE 0.6 mg/dL (0.55-1.3); POTASSIUM 4.2 mmol/L (3.5-5.1); TOT PROT 7.8 g/dl (6.4-8.2)
[2019-09-20] MEDS ORDERED: MAG HYDROX/AL HYDROX/SIMETH 30 ML UNIT-DOSE CUP PO ONE (21:17)
[2019-09-20] MEDS ORDERED: LIDOCAINE VISCOUS 2% ORAL/TOP 20 ML UNIT-DOSE CUP MM ONE (21:17)
[2019-09-20] MEDS ORDERED: MAG HYDROX/AL HYDROX/SIMETH 30 ML UNIT-DOSE CUP ONE (21:55)
[2019-09-20 22:15] LABS: PH,URINE 6.5 (5.0-8.0); URINE APPEARANCE CLEAR; URINE BILIRUBIN NEGATIVE (NEGATIVE); URINE COLOR YELLOW; URINE GLUCOSE (UA) NEGATIVE (NEGATIVE); URINE KETONE TRACE (NEGATIVE); URINE LEUK ESTERASE NEGATIVE (NEGATIVE); URINE NITRITE NEGATIVE (NEGATIVE); URINE PROTEIN NEGATIVE (NEGATIVE)
[2019-09-20 23:00] VITALS: BP 110/71; PULSE 77; TEMP 98.5
== END 2019-09-20 23:01 | disposition home or self-care (01) ==
LOC: JER 18:56
PROC: 3E033GC Introduction of Other Therapeutic Substance into Peripheral Vein, Percutaneous Approach (ICD-10-PCS; principal; 2019-09-20)
PROC: 3E033NZ Introduction of Analgesics, Hypnotics, Sedatives into Peripheral Vein, Percutaneous Approach (ICD-10-PCS; 2019-09-20)
PROC: 3E033GC Introduction of Other Therapeutic Substance into Peripheral Vein, Percutaneous Approach (ICD-10-PCS; 2019-09-20)
PROC: BY49ZZZ Ultrasonography of First Trimester, Single Fetus (ICD-10-PCS; 2019-09-20)
DX: O26.891 Other specified pregnancy related conditions, first trimester (principal); O21.0 Mild hyperemesis gravidarum; Z3A.12 12 weeks gestation of pregnancy
CPT/HCPCS: 36415; 76815; 80053; 81003; 83690; 84702; 85025; 86850; 86900; 86901; 87086; 96365; 96375; 99284-25; J0131

== ENCOUNTER 2020-01-29 16:07 | Emergency (ER) | payer OTHER ==
--- NOTE | 2020-01-29 16:22 | PDOC ---
Rapid Medical Evaluation Chief Complaint: Shortness of Breath Time Seen by Provider: 01/29/20 16:17 Medical Evaluation: Allergies Allergy/AdvReac Type Severity Reaction Status Date / Time No Known Allergies Allergy Verified 11/22/19 02:15 01/29/20 16:18 CC: sob, chest tightness, h/o dvt (on heparin), 29 weeks Exam: tachy, dyspneic, lcta Plan: labs, iv, Discharge Disposition - Diagnosis SOB (shortness of breath) - Referrals - Patient Instructions - Post Discharge Activity
[2020-01-29 16:24] VITALS: BP 115/71; PULSE 118; TEMP 98.5; BMI 31.8
[2020-01-29] MEDS ORDERED: ALBUTEROL SO4 0.083% IH SOL 2.5 MG/3 ML VIAL.NEB. NEB ONE ×2 (17:30→17:33)
--- NOTE | 2020-01-29 17:30 | PDOC ---
History of Present Illness - General Chief Complaint: Shortness of Breath Stated Complaint: PANIC ATTACKS Time Seen by Provider: 01/29/20 16:17 - History of Present Illness Initial Comments: Ms Montes is a 24 yo who is 29 weeks with PMH of anxiety, depression, cerebral venous sinus thrombosis presenting with 30 min hx of SOB. She has been feeling anxious and is currently crying due to life stressors. She endorses palpitation and bilateral LE edema. She endorses vomiting consistent with her previous . She denies chest pain, abd pain, vaginal bleeding. She is on heparin for CVST that was prescribed by her maternal medicine doctor at [facility]. She recently tested negative for COVID. Past History - Medical History Allergies/Adverse Reactions: Allergies Allergy/AdvReac Type Severity Reaction Status Date / Time No Known Allergies Allergy Verified 11/22/19 02:15 Home Medications: Ambulatory Orders Pnv No.95/Ferrous Fum/Folic AC [ Vitamin Tablet] 1 each PO DAILY 11/22/19 Asthma: No Cancer: No Cardiac Disorders: No COPD: No Diabetes: No HTN: No Seizures: No Thyroid Disease: No - Reproductive History (#): 3 Para: 5 Cervical CA: No Dysfunctional Uterine Bleeding: No Ectopic : No Endometrial CA: No Polycystic Ovaries: No Therapeutic (s) & number: No Tubal Ligation: No - Immunization History Immunization Up to Date: Yes - Psycho-Social/Smoking History Smoking Status: No Smoking History: Never smoked Have you smoked in the past 12 months: No Number of Cigarettes Smoked Daily: 0 Information on smoking cessation initiated: No - Substance Abuse Hx (Audit-C & DAST Scrn) How often the patient has a drink containing alcohol: Never Score: In Men: 4 or > Positive; In Women: 3 or > Positive: 0 Screen Result (Pos requires Nsg. Audit-10AR): Negative In the last yr the pt used illegal drug/Rx for NonMed reason: No Score: Yes response is considered Positive: 0 Screen Result (Positive result requires Nsg. DAST-10): Negative Review of Systems - Review of Systems Constitutional: No: Chills, Fever, Malaise HEENTM: No: Recent change in vision, Double Vision Respiratory: Yes: Shortness of Breath. No: Cough, Orthopnea, Wheezing Cardiac (ROS): No: Chest Pain, Edema, Irregular Heart Rate ABD/GI: Yes: Nausea, Vomiting. No: Constipated, Diarrhea : No: Dysuria, Frequency, Flank Pain Musculoskeletal: No: Back Pain, Joint Pain Integumentary: No: Bruising, Erythema, Rash Neurological: No: Headache, Tremors, Weakness Psychiatric: Yes: Anxiety, Depression, Frequent Crying, Stressors, Emotional Problems Endocrine: No: Intolerance to Cold, Intolerance to Heat, Increased Thirst *Physical Exam - Vital Signs Last Vital Signs Temp Pulse Resp BP Pulse Ox 98.5 F 118 H 17 115/71 97 01/29/20 16:13 01/29/20 16:13 01/29/20 16:13 01/29/20 16:13 01/29/20 16:13 - Physical Exam General Appearance: Yes: Appropriately Dressed, Apparent Distress HEENT: positive: EOMI, Normal Voice Respiratory/Chest: positive: Normal Breath Sounds. negative: Chest Tender, Respiratory Distress Cardiovascular: positive: Regular Rhythm, Regular Rate, S1, S2, Edema (b/l LE swelling) Gastrointestinal/Abdominal: positive: Normal Bowel Sounds, Other (consistent with 3rd trimester ) Extremity: positive: Normal Capillary Refill, Normal Inspection, Normal Range of Motion Neurologic: positive: Fully Oriented, Alert, Normal Response, Other (anxious, sad, crying.) Medical Decision Making - Medical Decision Making 24 yo 29 weeks female with PMH of anxiety, depression, CVT on heparin presents with 30 min hx of shortness of breath and tachycardia. She is anxious, has a sad affect, is crying due to life stresses and believes this sob is a manifestation of he anxiety. PE is considered as the differential but is not going to be worked up due to improving symptoms after her anxiety went down. She is being discharged and taken to [facility] for further evaluation. 1 breathing treatment of albuterol was given which seemed to improve symptoms. Discharge - Discharge Information Problems reviewed: Yes Clinical Impression/Diagnosis: Anxiety with limited-symptom attacks, SOB (shortness of breath) - Admission No - Follow up/Referral - Patient Discharge Instructions Additional Instructions: You were evaluated for sob most likely due to anxiety. You were transfered to our CRYPTOANALYSIS TEACHER department. Please return to the ED if symptoms return or worsen. Follow up with you PCP for monitoring of your symptoms. - Post Discharge Activity
--- NOTE | 2020-01-29 20:27 | PD.OB.PROG ---
Past Medical History - Primary Care Physician PCP:: Cande Suarez Documenting Provider Type: Attending - Admission Chief Complaint: 24 yrs , 29.6 wks gestation , previous c/sx2 referred from ER for Monitoring . pt c/o anxiety attack in ED she was treated with albuterol History of Present Illness: pt pnc started at [facility] , she was transferred to [facility] due to high risk pt states she was at [facility] due to vomiting after eating 8 tacos pt says she was treated with iv fluids & discharged after discharge she goes to [place] , she ate 24 burgers there She was eating more because she feels in begnning of preg she was unable to eat currently she is trying to compensate for it she denies any mental health issues . significant other is not with her. she says I have wonderful family. she denies any stress to me or crying episodes pt is waiting for some one at [facility] tocall her for appt with Pt admits she is on heparin for last 2 months , she was placed on heparin at [facility] her history is not consistent . 11/30/19 US neg Nt/AFP screen 21.2 wka , edc 04/09/20 targeted anatomy wnl af normal History Source: Patient, Medical Record Limitations to Obtaining History: No Limitations - Nursing Documentation Maternal Triage Index: 4 Nursing Documentation Reviewed: Yes - Past Medical History BURGLARY INVESTIGATOR: Other (h/o brain aneuurysm) Cardio/Vascular: Denies/None, Deep Vein Thrombosis (? currently on heparin , does not know dose) Pulmonary: Other (sometimeds SOB) Gastrointestinal: Denies/None Hepatobiliary: Denies/None ...: 6 ...Para: 5 ...Term: 4 ...: 1 (twins ) ...Living Children: 6 ...Multiple Gestation: 1 ...LMP: 07/04/19 ... Weeks Gestation by Dates: 29.6 ...EDC by Dates: 04/09/20 ...EDC by Sono: 04/09/20 Additional OB History: G1 04/27/11 girl term [facility]. G2 03/21/13 boy, Term [facility]. G3 04/21/15 [facility] in [facility]. G4 01/03/16primary c/sction 28 wks Twins [facility] , h/o report states brain annurysm post pt on blood thinners , h/o pp depression. G5 11/28/17 [facility]/s term [facility] h/o GDM Heme/Onc: Other (pt on heparin therapy unable to state who is mpnitoring her) Infectious Disease: Denies/None, Other (declies) Psych: Anxiety, Depression (pp) Musculoskeletal: Denies/None Rheumatology: Denies/None ENT: Denies/None Endocrine: Denies/None Dermatology: Denies/None - Past Surgical History Past Surgical History: Yes: (04/21/15 & 11/28/17), Tonsillectomy - Smoking History Smoking history: Never smoked Have you smoked in the past 12 months: No Aproximately how many cigarettes per day: 0 - Alcohol/Substance Use Hx Alcohol Use: No - Social History ADL: Independent History of Recent Travel: No Review of Systems - Review of Systems Constitutional: reports: Other (hungry) Eyes: reports: No Symptoms HENT: reports: No Symptoms Neck: reports: No Symptoms Cardiovascular: reports: No Symptoms Respiratory: reports: SOB (when in ED , not now) Gastrointestinal: reports: No Symptoms, Other (vomoting 2 days ago) Genitourinary: reports: No Symptoms Musculoskeletal: reports: No Symptoms Integumentary: reports: No Symptoms Neurological: reports: No Symptoms Endocrine: reports: No Symptoms Hematology/Lymphatic: reports: No Symptoms Psychiatric: reports: Anxiety Physical Exam - Obstetrical Vital Signs: Vital Signs Temperature 98.5 F 01/29/20 16:13 Pulse Rate 118 H 01/29/20 16:13 Respiratory Rate 17 01/29/20 16:13 Blood Pressure 115/71 01/29/20 16:13 O2 Sat by Pulse Oximetry (%) 97 01/29/20 16:13 Constitutional: Yes: Well Nourished, No Distress, Other (smiling , does not feel she is mentally disturbed) Eyes: Yes: WNL HENT: Yes: WNL Neck: Yes: WNL Cardiovascular: Yes: WNL Lungs: Clear to auscultation Breast(s): Yes: Other (not examined) - Abdominal Exam/OB Fundal Height: 30 Number of Fetuses: Single Presentation: Vertex Contractions: No Monitor Mode: External (1) Heart Rate (range): 140 Heart Rate Location: Midline Category: I Accelerations: Non-Uniform Decelerations: None - Vaginal Exam/OB Vaginal Exam Deferred: Yes Vaginal Bleeding: No Speculum Exam: No Dilatation (cm): close Effacement (%): unefface Amniotic Membrane Status: Intact Presentation: Vertex/Position Station: -3 - Physical Exam Musculoskeletal: Yes: WNL Extremities: Yes: WNL. No: Calf Tenderness Edema: No Integumentary: Yes: Incision (pfannensteil scar), Tattoos, Other (some bruises pt states from inj heparin) Deep Tendon Reflex Grade: Hyperactive,very brisk +4 Psychiatric: Yes: WNL, Alert, Oriented. No: Agitated Problem List - Problems (1) Anxiety with limited-symptom attacks Code(s): F41.8 - OTHER SPECIFIED ANXIETY DISORDERS (2) with 29 completed weeks gestation Code(s): Z3A.29 - 29 WEEKS GESTATION OF (3) Previous section Code(s): Z98.891 - HISTORY OF UTERINE SCAR FROM PREVIOUS SURGERY Assessment/Plan 24 yrs , 29.6 wks , previous c/sx2, high risk on heparin therapy , h/o anxiety attack for monitoring recommend f/u at [facility] , declines psychologist or psychiatrist evaluation ct pnv
--- NOTE | 2020-01-31 14:57 | EKG ---
Test Reason : Blood Pressure : / mmHG Vent. Rate : 092 BPM Atrial Rate : 092 BPM P-R Int : 144 ms QRS Dur : 082 ms QT Int : 348 ms P-R-T Axes : 032 032 028 degrees QTc Int : 430 ms NORMAL SINUS RHYTHM NORMAL ECG WHEN COMPARED WITH ECG OF 16-FEB-2016 21:45, NONSPECIFIC T WAVE ABNORMALITY, IMPROVED IN INFERIOR LEADS NONSPECIFIC T WAVE ABNORMALITY NO LONGER EVIDENT IN LATERAL LEADS Confirmed by BOBY FERGUSON, TIN ([id number]) on 01/31/2020 2:56:45 PM Referred By: Confirmed By:TIN LANDIS MD
--- NOTE | 2020-02-11 17:09 | PDOC ---
Documentation entered by Lisbeth Edwards SCRIBE, acting as scribe for Maye Garcia MD. Maye Garcia MD: This documentation has been prepared by the dimitryibe, Lisbeth Edwards SCRIBE, under my direction and personally reviewed by me in its entirety. I confirm that the documentation accurately reflects all work, treatment, procedures, and medical decision making performed by me. Attending Attestation - Resident Resident Name: Thea Ragsdale - ED Attending Attestation I have performed the following: I have examined & evaluated the patient, The case was reviewed & discussed with the resident, I agree w/resident's findings & plan, Exceptions are as noted - HPI HPI: 01/29/20 17:19 Patient is a 24 year old female (29 weeks ) with a significant past medical history of anxiety, depression, previous C-Sections, cerebral venous sinus thrombosis, who presents to the ED with SOB x30 minutes. Patient stated she has been vomiting which is consistent with her previous along with current symptoms of bilateral LE edema and palpitation. Allergies: NKDA - Physicial Exam PE: 01/29/20 17:51 24 yo female in no acute distress at this time. head ncat neck supple lungs cta b/l cvs [id number] abdomen protuberant skin warm and dry neuro axox3,ambulatory - Medical Decision Making 02/11/20 19:04 pt was sent to [facility] for monitoring Discharge - Discharge Information Problems reviewed: Yes Clinical Impression/Diagnosis: Anxiety with limited-symptom attacks, SOB (shortness of breath) Condition: Stable Disposition: HOME - Follow up/Referral - Patient Discharge Instructions Patient Printed Discharge Instructions: Is It Really Labor?, Labor Additional Instructions: You were evaluated for sob most likely due to anxiety. You were transfered to our LINUX NETWORK ENGINEER department. Please return to the ED if symptoms return or worsen. Follow up with you PCP for monitoring of your symptoms. - Post Discharge Activity
== END 2020-01-29 20:14 | disposition home or self-care (01) ==
LOC: JER 16:07
PROC: 3E0F7GC Introduction of Other Therapeutic Substance into Respiratory Tract, Via Natural or Artificial Opening (ICD-10-PCS; principal; 2020-01-29)
DX: O26.893 Other specified pregnancy related conditions, third trimester (principal); R06.02 Shortness of breath; F41.9 Anxiety disorder, unspecified; Z3A.29 29 weeks gestation of pregnancy
CPT/HCPCS: 93005; 93010; 94640; 99283-25

== ENCOUNTER 2020-02-16 18:02 | Emergency (ER) | payer OTHER ==
--- NOTE | 2020-02-16 18:27 | PDOC ---
Rapid Medical Evaluation Time Seen by Provider: 02/16/20 18:18 Medical Evaluation: Allergies Allergy/AdvReac Type Severity Reaction Status Date / Time No Known Allergies Allergy Verified 11/22/19 02:15 02/16/20 18:18 I performed a brief in-person evaluation of this patient. Pt is a 25 y/o female who is 8 months with complaint of vomiting that started today. She states her symptoms have been ongoing for 1 week. The patient states that she has been also having diarrhea. She does admit to eating Street's everyday. Pt is with previous twin gestation. Pertinent physical exam findings: slightly dry mucosa, gravid uterus, speaking in full sentences I have ordered the following: saline lock, cbc, cmp, NS Patient to proceed to ED for further evaluation. Discharge Disposition - Diagnosis Vomiting - Referrals - Patient Instructions - Post Discharge Activity
[2020-02-16] MEDS ORDERED: SODIUM CHLORIDE 1,000 ML IV STA (18:28)
[2020-02-16 18:30] VITALS: BP 103/54; PULSE 73; TEMP 98.4; BMI 34.5
[2020-02-16] MEDS ORDERED: FAMOTIDINE 20 MG/50 ML IVPB 20 MG in PREMIX 50 IVPB ONE (19:03)
[2020-02-16] MEDS ORDERED: ONDANSETRON 4 MG/2 ML VIAL IVPUSH ONE (19:03)
--- NOTE | 2020-02-16 19:05 | PDOC ---
History of Present Illness - General Chief Complaint: Nausea/Vomiting Stated Complaint: 8 MTHS/PREGNAT/VOMITING//DIARRHEA Time Seen by Provider: 02/16/20 18:18 History Source: Patient Exam Limitations: No Limitations - History of Present Illness Initial Comments: 02/16/20 19:30 CHIEF COMPLAINT: Vomiting HISTORY OF PRESENT ILLNESS: This is a 25-year-old female (twin gestation) 31 wks who presents with one week of diarrhea, nausea, and vomiting. She states that she has the occasional abdominal cramp but denies contractions, back pain. She is unable to keep down fluids today. She denies fevers/chill, SOB, sick contacts. She states that she eats at [employer] daily. 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 She states that she follows with high pressure cleaner at [facility]/Lakeisha Mercado but that they are not returning her calls/she has not been seen recently. Vital signs on arrival are unremarkable. REVIEW OF SYSTEMS: GENERAL/CONSTITUTIONAL: No fever or chills. No weakness. HEAD, EYES, EARS, NOSE AND THROAT: No change in vision. No change in hearing. No sore throat. CARDIOVASCULAR: Reports chest pain. No shortness of breath. RESPIRATORY: Denies cough, hemoptysis. GASTROINTESTINAL: See HPI. SKIN: No rashes or lesions. NEUROLOGIC: No headache, vertigo, loss of consciousness, or change in strength/sensation. ALLERGIC/IMMUNOLOGIC: No hives or skin allergy. PHYSICAL EXAM: GENERAL: Awake, alert, and oriented to person/place/time, in no acute distress. HEAD: No signs of trauma, normocephalic, atraumatic. No epistaxis. EYES: PERRLA, EOMI, sclera anicteric, conjunctiva clear. LUNGS: No distress, speaks in full sentences, clear to auscultation bilaterally. HEART: Regular rate and rhythm, normal S1 and S2, no murmurs appreciated, peripheral pulses normal and equal bilaterally. ABDOMEN: Soft, gravid uterus, no focal tenderness. EXTREMITIES: Cap refill <2 sec. Normal pulses. NEUROLOGICAL: Cranial nerves II through XII grossly intact. Normal speech, normal gait, no focal sensorimotor deficits. SKIN: Warm, dry, normal turgor. 02/16/20 19:45 Past History - Medical History Allergies/Adverse Reactions: Allergies Allergy/AdvReac Type Severity Reaction Status Date / Time No Known Allergies Allergy Verified 11/22/19 02:15 Home Medications: Ambulatory Orders Pnv No.95/Ferrous Fum/Folic AC [ Vitamin Tablet] 1 each PO DAILY 02/03 Cephalexin [Keflex] 500 mg PO BID #14 capsule 02/16/20 Ondansetron [Zofran *Odt*] 4 mg SL TID PRN #10 od.tablet 02/16/20 Asthma: No Cancer: No Cardiac Disorders: No COPD: No Diabetes: No HTN: No Seizures: No Thyroid Disease: No - Reproductive History (#): 3 Para: 5 Cervical CA: No Dysfunctional Uterine Bleeding: No Ectopic : No Endometrial CA: No Polycystic Ovaries: No Therapeutic (s) & number: No Tubal Ligation: No - Immunization History Immunization Up to Date: Yes - Psycho-Social/Smoking History Smoking Status: No Smoking History: Never smoked Have you smoked in the past 12 months: No Number of Cigarettes Smoked Daily: 0 - Substance Abuse Hx (Audit-C & DAST Scrn) In the last yr the pt used illegal drug/Rx for NonMed reason: No Score: Yes response is considered Positive: 0 Screen Result (Positive result requires Nsg. DAST-10): Negative *Physical Exam - Vital Signs Last Vital Signs Temp Pulse Resp BP Pulse Ox 98.4 F 73 18 103/54 L 98 02/16/20 18:25 02/16/20 18:25 02/16/20 18:25 02/16/20 18:25 02/16/20 18:25 ED Treatment Course - LABORATORY CBC & Chemistry Diagram: 02/16/20 19:00 02/16/20 19:00 Medical Decision Making - Medical Decision Making 02/16/20 19:35 A/P: 25-year-old female in third trimester with n/v/d. -Labs including CBC, CMP, UA -COVID swab (low risk: patient states she has been negative six times) -1L IV NS for hydration -Zofran 4mg IVP for nausea/Pepcid 20mg IVPfor abd discomfort -Re-assess/PO trial - monitoring 02/16/20 20:38 Labs reviewed and notable for mildly low serum glucose. Patient is now able to tolerate juice. Feeling better. UA with 1+ leukesterase - will treat given . Culture sent. Will dc and send to OB for monitoring. Discharge - Discharge Information Problems reviewed: Yes Clinical Impression/Diagnosis: Vomiting, Vomiting and diarrhea Condition: Improved Disposition: HOME - Admission No - Additional Discharge Information Prescriptions: Cephalexin [Keflex] 500 mg PO BID #14 capsule Ondansetron [Zofran *Odt*] 4 mg SL TID PRN #10 od.tablet PRN Reason: Nausea - Follow up/Referral Referrals: ON STAFF,NOT [Primary Care Provider] - - Patient Discharge Instructions Patient Printed Discharge Instructions: DI for Vomiting -- Adult, DI for Urinary Tract Infection (UTI) Additional Instructions: Rest and stay well-hydrated Go to Labor & Delivery now for monitoring Please follow up with your guidance secretary next week Return if you are unable to keep down fluids, or for any other concerning symptoms - Post Discharge Activity
[2020-02-16] MEDS ORDERED: FAMOTIDINE 20 MG/50 ML IVPB 20 MG/50 ML MG IVPB ONE (19:10)
[2020-02-16 19:28] LABS: BASO % 0.2 % (0-2.0); EOS % 0.2 % (0-4.5); HEMOGLOBIN 11.6 GM/dL (10.7-15.3); LYMPH % 17.2 % (8-40); MCH 26.3 pg (25.7-33.7); MCHC 32.2 g/dl (32.0-36.0); MEAN CELL VOLUME 81.7 fl (80-96); MEAN PLT VOLUME 9.5 fl (7.5-11.1); MONO % 5.8 % (3.8-10.2); NEUT % 76.6 % (42.8-82.8); PLATELET COUNT 178 K/MM3 (134-434); RBC 4.41 M/mm3 (3.60-5.2); RDW 14.8 % (11.6-15.6); WHITE BLOOD COUNT 6.4 K/mm3 (4.0-10.0)
[2020-02-16 19:52] LABS: BILIRUBIN,TOTAL 0.4 mg/dL (0.2-1); BLOOD UREA NITROGEN 4.8 mg/dL (7-18); CALCIUM 8.7 mg/dL (8.5-10.1); CREATININE 0.5 mg/dL (0.55-1.3); POTASSIUM 3.9 mmol/L (3.5-5.1)
[2020-02-16 19:53] LABS: TOT PROT 6.6 g/dl (6.4-8.2)
[2020-02-16 20:51] LABS: EPI CELLS 30 /uL (0-25.1); HYALINE CASTS 1 /uL (0-3.1); URINE APPEARANCE CLEAR; URINE BACTERIA 2470 /uL (0-1359); URINE BILIRUBIN NEGATIVE (NEGATIVE); URINE COLOR YELLOW; URINE GLUCOSE (UA) NEGATIVE (NEGATIVE); URINE KETONE 1+ (NEGATIVE); URINE LEUK ESTERASE 1+ (NEGATIVE); URINE NITRITE NEGATIVE (NEGATIVE); URINE PROTEIN NEGATIVE (NEGATIVE); URINE RBC 5 /uL (0-23.9); URINE WBC 56 /uL (0-25.8)
--- NOTE | 2020-02-16 22:32 | PD.OB.PROG ---
Past Medical History - Primary Care Physician PCP:: [facility] Documenting Provider Type: Laborist - Admission Chief Complaint: nausea. vomiting. 31 week History Source: Patient Limitations to Obtaining History: No Limitations - Nursing Documentation Nursing Documentation Reviewed: Yes - Past Medical History ...: 5 ...Para: 3 ...: 1 - Past Surgical History Past Surgical History: Yes: (04/21/15 & 11/28/17), Tonsillectomy - Smoking History Smoking history: Never smoked Have you smoked in the past 12 months: No Aproximately how many cigarettes per day: 0 - Alcohol/Substance Use Hx Alcohol Use: No - Social History ADL: Independent History of Recent Travel: No Review of Systems - Review of Systems Constitutional: reports: No Symptoms Eyes: reports: No Symptoms HENT: reports: No Symptoms Neck: reports: No Symptoms Cardiovascular: reports: No Symptoms Respiratory: reports: No Symptoms Gastrointestinal: reports: Diarrhea, Nausea, Vomiting Genitourinary: reports: No Symptoms Breasts: reports: No Symptoms Reported Musculoskeletal: reports: No Symptoms Integumentary: reports: No Symptoms Neurological: reports: No Symptoms Endocrine: reports: No Symptoms Hematology/Lymphatic: reports: No Symptoms Psychiatric: reports: No Symptoms Physical Exam - Obstetrical Vital Signs: Vital Signs Temperature 98.4 F 02/16/20 18:25 Pulse Rate 73 02/16/20 18:25 Respiratory Rate 18 02/16/20 18:25 Blood Pressure 103/54 L 02/16/20 18:25 O2 Sat by Pulse Oximetry (%) 98 02/16/20 18:25 Constitutional: Yes: Well Nourished, No Distress, Obese - Abdominal Exam/OB Fundal Height: 34 Number of Fetuses: Single Presentation: Vertex Contractions: No Monitor Mode: External Category: I - Vaginal Exam/OB Amniotic Membrane Status: Intact Presentation: Vertex/Position - Physical Exam Musculoskeletal: Yes: WNL Extremities: Yes: WNL - Labs Lab Results: CBC, BMP 02/16/20 19:00 02/16/20 19:00 Problem List - Problems (1) Vomiting Problems reviewed: Yes Code(s): R11.10 - VOMITING, UNSPECIFIED (2) Vomiting and diarrhea Problems reviewed: Yes Code(s): R11.10 - VOMITING, UNSPECIFIED; R19.7 - DIARRHEA, UNSPECIFIED (3) 31 weeks gestation of Code(s): Z3A.31 - 31 WEEKS GESTATION OF (4) Previous delivery affecting , antepartum Code(s): O34.219 - MATERNAL CARE FOR UNSP TYPE SCAR FROM PREVIOUS DEL Assessment/Plan nuasea / vomiting/diarrhea treated in ER Hx brain anerysm Hx of delivery at 28 week Hx of CS due to twins x3 pt on heparin iup at 31 week prev CS Cat 1 Plan DC home
== END 2020-02-16 23:00 | disposition home or self-care (01) ==
LOC: JER 18:02 → SUPCPDRO 18:02 → JER 23:00
PROC: 3E033GC Introduction of Other Therapeutic Substance into Peripheral Vein, Percutaneous Approach (ICD-10-PCS; principal; 2020-02-16)
PROC: 3E0337Z Introduction of Electrolytic and Water Balance Substance into Peripheral Vein, Percutaneous Approach (ICD-10-PCS; 2020-02-16)
DX: R11.10 Vomiting, unspecified (principal); R19.7 Diarrhea, unspecified; Z3A.31 31 weeks gestation of pregnancy
CPT/HCPCS: 36415; 80053; 81003; 83690; 85025; 87086; 99284-25; U0003

== ENCOUNTER 2020-05-03 06:50 | Emergency (ER) | payer OTHER ==
[2020-05-03 07:46] VITALS: PULSE 90; TEMP 98.1; BMI 31.8
--- OUTSIDE RECORDS SUMMARY | 2020-05-03 07:49 | XMS ---
:1995 Author Organization [facility] Care Team Providers Name Role Phone [facility], CNR9 Unavailable Unavailable PASTOR, ANUBHA Unavailable Unavailable EMERGENCY SERVICE, X Unavailable Unavailable Amy, Mica Betty Unavailable Unavailable Amy, Betty Unavailable Unavailable Amy, Betty Unavailable Unavailable Amy, Betty Unavailable Unavailable Amy, Betty Unavailable Unavailable Amy, Betty Unavailable Unavailable ALEXUS ELLERANA Unavailable Unavailable HEBER ANN S. Unavailable Unavailable ARREOLA, EDWARD Unavailable Unavailable ROSEMARIE RAND Unavailable Unavailable SRI, VIRAJ Unavailable Unavailable Re-disclosure Warning The records that you are about to access may contain information from federally- assisted alcohol or drug abuse programs. If such information is present, then the following federally mandated warning applies: This information has been disclosed to you from records protected by federal confidentiality rules (42 CFR part 2). The federal rules prohibit you from making any further disclosure of this information unless further disclosure is expressly permitted by the written consent of the person to whom it pertains or as otherwise permitted by 42 CFR part 2. A general authorization for the release of medical or other information is NOT sufficient for this purpose. The Federal rules restrict any use of the information to criminally investigate or prosecute any alcohol or drug abuse patient.The records that you are about to access may contain highly sensitive health information, the redisclosure of which is protected by Article 27-F of the [facility] Public Health law. If you continue you may haveaccess to information: Regarding HIV / AIDS; Provided by facilities licensed or operated by the [facility] Office of Mental Health; or Provided by the [facility] Office for People With Developmental Disabilities. If such information is present, then the following [facility] mandated warning applies: This information has been disclosed to you from confidential records which are protected by state law. State law prohibits you from making any further disclosure of this information without the specific written consent of the person to whom it pertains, or as otherwise permitted by law. Any unauthorized further disclosure in violation of state law may result in a fine or penitentiary sentence or both. A general authorization for the release of medical or other information is NOT sufficient authorization for further disclosure. Encounters Encounter Providers Location Date Indications Data Source(s ) Outpatient Attender: CNR9 [facility] 04/21/2020 I [facility]. [facility] 04/05/2020 09:02:00 PM We [facility] Inpatient 04/05/2020 09:02:00 PM We [facility] Inpatient 04/05/2020 09:01:00 PM [facility] Inpatient 04/05/2020 09:01:00 PM [facility] Inpatient Attender: DAWIT, 03/22/2020 05:31:00 AM 0000 [facility] ANPEPE 0000 Inpatient Attender: DAWIT, 03/22/2020 05:09:00 0000 [facility] ANUBHAAdmitter: GOOD PASTOR EDT - 03/24/2020 Health Care ANUBHA 12:30:00 PM EDT Corporati on 0000 Outpatient Attender: DAWIT 03/22/2020 03:05:00 0000 [facility] 0000 Outpatient Attender: CNR9 [facility] 02/16/2020 11:40:00 AM [facility] ([facility] EDT Collaborative) Patient admitted. Outpatient Attender: RAFITA 02/07/2020 10:52:00 [facility] Health Ca re Lorena ELLER SORANAReferrer: CAMI ELLER R/O PTL Emergency Attender: KEYONA 01/27/2020 29WKS PRG PAIN W [facility] ROSEMARIEAttender: 05:34:00 PM EDT CONTRACTIO [facility] EMERGENCY SERVICE, Care C orporation XAdmitter: ROSEMARIE RAND 29WKS PRG PAIN CONTRACTIO Outpatient Attender: MARISSA 01/23/2020 05:03:00 RO PTL [facility] HEBER Perry.Admitter: PM EDT [facility] Care HEBER ANN Corpora tion RO PTL Inpatient Attender: RAFITA 01/14/2020 27 WEEKS R/O [facility] 02:40:00 PM EDT - ROM He [facility] ROSEMARIE RAND 01/15/2020 Corpora tion 01:15:00 PM EDT 27 WEEKS R/O ROM Outpatient Attender: RAFITA 01/12/2020 27 WEEKS R/O [facility] 11:56:00 PM EDT ROM [facility] ROSEMARIE RAND 27 WEEKS R/O ROM Outpatient Attender: KEYONA 01/12/2020 27 WEEKS [facility] ROSEMARIE RAND Corpora tion 27 WEEKS R/O ROM Outpatient Attender: DAWIT 12/29/2019 08:17:00 [facility]AL [facility] DAWIT, PM EDT He [facility] ABDOMINAL Outpatient Attender: Mica 12/17/2019 04:39:00 R/O PROM [facility] MenonAdmitter: Mica PM EDT He alth Care Amy [place] R/O PROM Outpatient Attender: SRI 12/05/2019 01:45:00 R-O PTL [facility] SADAFAdmitter: RSI, PM EDT [facility] Care VIRAJ [place] R-O PTL Emergency Attender: MAXWELL 11/30/2019 NO SMELL, NO [facility] EDWARDAttender: 08:47:00 PM EDT TASTE [facility] EMERGENCY SERVICE, Corpor ation XAdmitter: USMAN ARREOLA NO SMELL, NO TASTE Outpatient Attender: MARISSA 11/28/2019 03:55:00 R/O PTL [facility] HEBER S.Admitter: PM EDT [facility] MARISSA HEBER S. Corpora tion R/O PTL Outpatient Attender: SHON [facility] 10/05/2019 06:28:05 AM [facility] ([facility] EDT [facility]) Patient admitted. Outpatient Attender: SHON [facility] 07/31/2019 03:57:26 PM [facility] ([facility]) Patient admitted. Medications Medication Brand Start Product Dose Route Administrative Pharmacy [facility] Indications Reaction Description Data Name Date Form Instructions Instructions Source(s) 0.4 ML Loveno Anirudh sugar Enoxaparin x 2019 ed [place] sodium 100 (Enoxa 12:00: Healt h MG/ML melisa) 00 AM Care Prefilled [40 EDT Corporatio Syringe mg/0.4 n Lovenox mL (Enoxaparin Syring ) [40 e]: 1 mg/0.4 mL Syring Syringe]: 1 e Syringe Subcut Subcutaneou aneous s DAILY DAILY Ondansetron UNK complet Ondanset que [place] 4 MG Oral 2020 MG ed 4 MG Oral r Cou nty Tablet D 01:25: Tablet Health 05 AM Disintegrati Care EDT TAKE 1 Corporatio TABLET EVERY n 8 HOURS NEEDED FOR NAUSEA AND VOMITING. Dispense: 15 Ondansetron UNK complet Ondanset que [place] 4 MG Oral 2020 MG ed 4 MG Oral r Cou nty Tablet D 01:25: [facility] Health 05 AM Disintegrati Care EDT ng TAKE 1 Corporatio TABLET EVERY n 8 HOURS NEEDED FOR NAUSEA AND VOMITING. Dispense: 15 Zofran Zofran 11/30/ 4 mg UNK active Zofran [place] 4mg/2mL 4mg/2m 2020 4mg/2mL r Count y (Onda L 12:53: (Ondansetron Heal th (Onda 57 AM ) Injection Care EDT 4 mg IVP Corporatio n Medication administered onsite Zofran Zofran 12/01/2019 4 mg UNK active Zofran 4mg/2mL [place] 4mg/2mL 4mg/2mL 12:53:57 AM (Ondans etron) [facility] (Onda (Onda EDT Injection 4 mg Car e IVP Corporation Medication administered onsite Dextrose Dextrose 11/30/2019 12.5 UNK active Dex trose [place] 50% Syringe 50% Syringe 10:42:29 PM mg 50% Syringe [facility] EDT for Care Injection Corporatio n IVP Give 12.5 mg Medication administered onsite Dextrose Dextrose 11/30/2019 12.5 UNK active Dex trose [place] 50% Syringe 50% Syringe 10:42:29 PM mg 50% Syringe [facility] EDT for Care Injection Corporatio n IVP Give 12.5 mg Medication administered onsite 0.9% 0.9% 11/30/2019 1000 mL UNK active 0.9% NaC l [place] NaCl IV NaCl IV 09:20:48 PM IV Give [facility] EDT 1000 mL; IV Care rate: Corporation Bolus over 30 minutes Medication administered onsite 0.9% 0.9% 11/30/2019 1000 mL UNK active 0.9% NaC l [place] NaCl IV NaCl IV 09:20:48 PM IV Give [facility] EDT 1000 mL; IV Care rate: Corporation Bolus over 30 minutes Medication administered onsite Insurance Providers Payer name Policy type Policy ID Covered Covered libertarian's Policy P tavon / Coverage libertarian ID relationship to [employer] 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 SP [id number] 1 INS UNK UNK UNK UNK UNK UNK UNK UNK UNK UNK UNK UNK MEDICAID [id number] Problems, Conditions, and Diagnoses Code Display Name Description Problem Type Effective Data Sour ce(s) Dates Z86.73 Personal history of PRSNL HX OF TIA Diagnosis 03/24/2020 [place] transient ischemic (TIA), AND CEREB 12:30:00 PM [facility] attack (TIA), and INFRC W/O RESID EDT Ca re cerebral infarction DEFICITS Corpo ration without residual deficits Z20.828 Contact with and CONTACT W AND Diagnosis 03/24/2020 [facility] (suspected) EXPOSURE TO OTH 12:30:00 PM [facility] exposure to other VIRAL COMMUNICABLE EDT Care viral communicable DISEASES Corpor ation diseases Z3A.37 37 weeks gestation 37 WEEKS GESTATION Diagnosis 0 [place] of OF 12:30:00 PM [facility] EDT Care LookUP Z37.0 Single live SINGLE LIVE Diagnosis 03/24/2020 [place] 12:30:00 PM [facility] EDT Care Corporation O69.81X0 Labor and delivery LABOR AND DEL COMP Diagnosis 0 [place] complicated by cord BY CORD AROUND 05:09:00 AM [facility] around neck, NECK, W/O COMPRSN, EDT Care without UNSP Corporation compression, not applicable or unspecified O09.213 Supervision of THALIA OF PREG W Diagnosis 02/07/2020 [place] HISTORY OF PRE-TERM 10:52:00 PM [facility] history of pre-term LABOR, THIRD EDT Car e labor, third TRIMESTER Corporation trimester Z86.79 Personal history of PERSONAL HISTORY OF Diagnosis [place] other diseases of OTHER DISEASES OF 10:52:00 PM [facility] the circulatory THE CIRCULATORY EDT Care system SYSTEM Corporation 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 [place] use of USE OF 10:52:00 PM [facility] anticoagulants ANTICOAGULANTS EDT Care Corporation Z98.890 Other specified OTHER SPECIFIED Diagnosis 02/07/2020 [place] julia postprocedural POSTPROCEDURAL 10:52:00 PM Count y Health states STATES EDT Care Corporation O34.219 Maternal care for MATERNAL CARE FOR Diagnosis 02/07/2020 [place] unspecified type UNSP TYPE SCAR FROM 10:52:00 P M [facility] scar from previous PREVIOUS EDT Care delivery DEL Corpora tion O47.03 False labor before FALSE LABOR BEFORE Diagnosis 0 [place] 37 completed weeks 37 COMPLETED WEEKS 10:52:00 PM [facility], third OF GEST, THIRD TRI EDT Care trimester Corporation Z3A.31 31 weeks gestation 31 WEEKS GESTATION Diagnosis 0 [place] of OF 10:52:00 PM [facility] EDT Care LookUP O26.893 Other specified OTH Diagnosis 02/07/2020 [place] related RELATED CONDITIONS, 10:52:00 PM [facility], third THIRD TRIMESTER EDT Ca re trimester Corporation Z79.02 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 020 [place] use of USE OF 05:34:00 PM [facility] antithrombotics/ant ANTITHROMBOTICS/ANT EDT Care iplatelets IPLATELETS Look[place] R10.11 Right upper RIGHT UPPER Diagnosis 01/27/2020 [place] quadrant pain QUADRANT PAIN 05:34:00 PM [facility] EDT Care LookUP R10.13 Epigastric pain EPIGASTRIC PAIN Diagnosis 01/27/2020 [place] 05:34:00 PM [facility] EDT Care Corporation R19.8 Other specified OTH SYMPTOMS AND Diagnosis 01/27/2020 [facility] symptoms and signs SIGNS INVOLVING THE 05:34:00 PM [facility] involving the STV SYS AND EDT Care digestive system ABDOMEN Corporat ion and abdomen R11.10 Vomiting, VOMITING, Diagnosis 01/27/2020 [place] unspecified UNSPECIFIED 05:34:00 PM [facility] EDT Care Corporation Z3A.29 29 weeks gestation 29 WEEKS GESTATION Diagnosis 0 [place] of OF 05:34:00 PM [facility] EDT Care Corporation O26.892 Other specified OTH Diagnosis 01/27/2020 [place] related RELATED CONDITIONS, 05:34:00 PM [facility], second SECOND TRIMESTER EDT Care trimester Corporation M79.605 Pain in left leg PAIN IN LEFT LEG Diagnosis 01/23/2020 [facility] 05:03:00 PM [facility] EDT Care Corporation O47.02 False labor before FALSE LABOR BEFORE Diagnosis 0 [place] 37 completed weeks 37 COMPLETED WEEKS 05:03:00 PM [facility], OF GEST, SECOND TRI EDT Ca re second trimester Corporat ion Z3A.27 27 weeks gestation 27 WEEKS GESTATION Diagnosis 0 [place] of OF 01:15:00 PM [facility] alth EDT Care Corporation O60.02 labor LABOR Diagnosis 01/14/[address] [facility] without delivery, WITHOUT DELIVERY, 02:40:00 PM [facility] second trimester SECOND TRIMESTER EDT Ca re Corporation Z86.2 Personal history of PRSNL HISTORY OF Diagnosis 12/29/2019 [place] diseases of the DIS OF THE 08:17:00 PM [facility] ealth blood and BLD/BLD-FORM EDT Care blood-forming ORG/IMMUN MECHN Ibis oration organs and certain disorders involving the immune mechanism R35.0 Frequency of FREQUENCY OF Diagnosis 12/29/2019 [facility] r micturition MICTURITION 08:17:00 [facility] EDT Care Corporation R19.7 Diarrhea, DIARRHEA, Diagnosis 12/29/2019 [place] unspecified UNSPECIFIED 08:17:00 [facility] EDT Care LookUP R10.9 Unspecified UNSPECIFIED Diagnosis 12/29/2019 [place] abdominal pain ABDOMINAL PAIN 08:17:00 PM [facility] y Health EDT Care Corporation O23.42 Unspecified UNSP INFCT OF Diagnosis 12/29/2019 [facility] r infection of URINARY TRACT IN 08:17:00 PM Count y Health urinary tract in , SECOND EDT C are , second TRIMESTER Corpora tion trimester Z3A.25 25 weeks gestation 25 WEEKS GESTATION Diagnosis 0 [place] of OF 08:17:00 [facility] alth EDT Care LookUP O23.592 Infection of other INFECTION OTH PRT Diagnosis 12/29/2019 [place] part of genital GENITL TRCT IN 08:17:00 PM Coun ty Health tract in , , SECOND EDT Care second trimester TRIMESTER Corporat ion Z3A.23 23 weeks gestation 23 WEEKS GESTATION Diagnosis 0 [place] of OF 04:39:00 PM [facility] alth EDT Care LookUP Z86.718 Personal history of PERSONAL HISTORY OF Diagnosis 020 [place] other venous OTHER VENOUS 01:45:00 [facility] alth thrombosis and THROMBOSIS AND EDT Care embolism EMBOLISM Corporation Z3A.01 Less than 8 weeks LESS THAN 8 WEEKS Diagnosis 11/30/2019 [place] gestation of GESTATION OF 08:47:00 PM [facility] alth EDT Care Corporation K52.9 Noninfective NONINFECTIVE Diagnosis 11/30/2019 [facility] r gastroenteritis and GASTROENTERITIS AND 08:47:0 0 PM [facility] colitis, COLITIS, EDT Care unspecified UNSPECIFIED Corporation O26.891 Other specified OTH Diagnosis 11/30/2019 [facility] blanche related RELATED CONDITIONS, 08:47:00 PM [facility] conditions, first FIRST TRIMESTER EDT Ca re trimester Corporation Z82.3 Family history of FAMILY HISTORY OF Diagnosis 11/28/2019 [place] stroke STROKE 03:55:00 PM [facility] EDT Care Corporation Z3A.21 21 weeks gestation 21 WEEKS GESTATION Diagnosis 0 [place] of OF 03:55:00 PM [facility] alth EDT Care [facility] O09.212 Supervision of SUPRVSN OF PREG W Diagnosis 11/28/2019 [facility] with HISTORY OF PRE-TERM 03:55:00 PM [facility] history of pre-term LABOR, SECOND TRI EDT Care labor, second Corporation trimester Results ID Date Data Source [id number] 03/23/2020 05:33:00 AM EDT [facility] [id number] Corporation Name Value Range Interpretation Description Data Sup porting Code Source(s) Document(s ) Erythrocytes 3.87 m/mm3 3.60-5 <td> [place] [#/volume] in .10 03/23/2020 [facility] Blood m/mm3 05:33</td><td> [facility] Care RBC </td><td> [facility] 3.87
(3.60-5.10) m/mm3 </td> Leukocytes 9.5 k/mm3 4.5-10 <td> [place] [#/volume] in .8 03/23/2020 [facility] Blood by k/mm3 05:33</td><td> Health Care Automated count WBC </td><td> Corporati on 9.5
(4.5-10.8) k/mm3 </td> Erythrocyte 14.8 % 11.5-1 <td> [place] distribution 4.5 % 03/23/2020 [facility] width [Entitic 05:33</td><td> Health Car e volume] by RDW LookUP Automated count </td><td><para graph styleCode="Maye d"> 14.8 H </paragraph><b r/> (11.5-14.5) % </td> Erythrocyte mean 81.1 fL 80.0-9 <td> [place] corpuscular 6.0 fL 03/23/2020 [facility] volume [Entitic 05:33</td><td> Health Ca re volume] by MCV </td><td> Corporation Automated count 81.1
(80.0-96.0) fL </td> Erythrocyte mean 26.1 pg 27.0-3 <td> [place] corpuscular 1.5 pg 03/23/2020 [facility] hemoglobin 05:33</td><td> Health Care [Entitic mass] MCH Corporation by Automated </td><td><para count graph styleCode="Maye d"> 26.1 L </paragraph><b r/> (27.0-31.5) pg </td> Hematocrit 31.4 % 36.0-4 <td> [place] [Volume 7.0 % 03/23/2020 [facility] Fraction] of 05:33</td><td> Health Care Blood by HCT LookUP Automated count </td><td><para graph styleCode="Maye d"> 31.4 L </paragraph><b r/> (36.0-47.0) % </td> Erythrocyte mean 32.2 % 32.0-3 <td> [place] corpuscular 6.0 % 03/23/2020 [facility] hemoglobin 05:33</td><td> Health Care concentration [facility] [Mass/volume] in </td><td> Blood from Fetus by Automated 32.2 count
(32.0-36.0) % </td> Hemoglobin 10.1 g/dL 11.5-1 <td> [place] [Mass/volume] in 4.5 03/23/2020 [facility] Blood g/dL 05:33</td><td> Health Care HGB Corporation </td><td><para graph styleCode="Maye d"> 10.1 L </paragraph><b r/> (11.5-14.5) g/dL </td> Platelets 185 k/mm3 160-41 <td> [place] [#/volume] in 0 03/23/2020 [facility] Blood by k/mm3 05:33</td><td> Health Care Automated count Platelet Count Corporati on </td><td> 185
(160-410) k/mm3 </td> Basophils 0.1 % 0.0-2. <td> [place] [#/volume] in 0 % 03/23/2020 [facility] Blood by 05:33</td><td> Health Care Automated count Basophils Corporation </td><td> 0.1
(0.0-2.0) % </td> Lymphocytes 17.9 % 18.0-5 <td> [place] [#/volume] in 3.0 % 03/23/2020 [facility] Blood by 05:33</td><td> Health Care Automated count Lymphocytes Corporation </td><td><para graph styleCode="Maye d"> 17.9 L </paragraph><b r/> (18.0-53.0) % </td> Basophils+Eosino 0.4 % 0.0-5. <td> [place] phils+Monocytes 0 % 03/23/2020 [facility] [#/volume] in 05:33</td><td> Health Care Blood by Eosinophils Corporation Automated count </td><td> 0.4
(0.0-5.0) % </td> Platelet mean 12.3 fL 9.8-12 <td> [place] volume [Entitic .8 fL 03/23/2020 [facility] volume] in Blood 05:33</td><td> Health C are by Automated MPV </td><td> Corporation count 12.3
(9.8-12.8) fL </td> Monocytes/Leukoc 6.2 % 0.0-11 <td> [place] ytes [Pure .0 % 03/23/2020 [facility] number fraction] 05:33</td><td> Health C are in Blood by Monocytes. Corporation Automated count </td><td> 6.2
(0.0-11.0) % </td> Ovalocytes Few <td> [place] [Presence] in 03/22/2020 [facility] Blood by Light 03:59</td><td> Health Car e microscopy Ovalocytes LookUP </td><td> Few
</td> Sodium 137 mEq/L 135-14 <td> [place] [Moles/volume] 5 03/22/2020 [facility] in Serum or mEq/L 09:27</td><td> Health Care Plasma Sodium-Serum LookUP </td><td> 137
(135-145) mEq/L </td> Glucose 81 mg/dL 70-105 <td> [place] [Mass/volume] in mg/dL 03/22/2020 [facility] Blood 09:27</td><td> Health Care Glucose-Serum LookUP </td><td> 81
(70-105) mg/dL </td> Neutrophils [#] 75.1 % 36.0-7 <td> [place] in Body fluid by 3.0 % 03/23/2020 [facility] Manual count 05:33</td><td> Health Care Neutrophils LookUP </td><td><para graph styleCode="Maye d"> 75.1 H </paragraph><b r/> (36.0-73.0) % </td> Anisocytosis Slight <td> [place] [Presence] in 03/22/2020 [facility] Blood by Light 03:59</td><td> Health Car e microscopy Anisocytosis LookUP </td><td> Slight
</td> Immature 0.3 % 0.0-0. <td> [place] granulocytes/100 5 % 03/23/2020 [facility] leukocytes in 05:33</td><td> Health Care Blood by IG% </td><td> LookUP Automated count 0.3
(0.0-0.5) %
The IG fraction represents metamyelocytes , myelocytes and/or
promyelocytes and is only reported as part of the automated
differential when found at a percentage of less than 6.
If higher than 6%, a manual differential will be performed.

(0.0-0.5) % </td> Potassium 3.6 mEq/L 3.5-5. <td> [place] [Moles/volume] 1 03/22/2020 [facility] in Serum or mEq/L 09:27</td><td> Health Care Plasma Potassium-Seru Corporation m </td><td> 3.6
(3.5-5.1) mEq/L </td> Urea nitrogen 5 mg/dL 6-22 <td> [place] [Mass/volume] in mg/dL 03/22/2020 [facility] Blood 09:27</td><td> Health Care BUN Corporation </td><td><para graph styleCode="Maye d"> 5 L </paragraph><b r/> (6-22) mg/dL </td> Carbon dioxide, 19 mEq/L 22-30 <td> [place] total mEq/L 03/22/2020 [facility] [Moles/volume] 09:27</td><td> Health Car e in Serum or CO2 Corporation Plasma </td><td><para graph styleCode="Maye d"> 19 L </paragraph><b r/> (22-30) mEq/L </td> Chloride 107 mEq/L 98-107 <td> [place] [Moles/volume] mEq/L 03/22/2020 [facility] in Serum or 09:27</td><td> Health Care Plasma Chloride Corporation </td><td> 107
(98-107) mEq/L </td> Creatinine 0.59 mg/dL 0.57-1 <td> [place] [Moles/volume] .11 03/22/2020 [facility] in Serum or mg/dL 09:27</td><td> Health Care Plasma Creatinine. Corporation </td><td> 0.59
(0.57-1.11) mg/dL </td> Bilirubin.total 0.6 mg/dL 0.2-1. <td> [place] [Mass/volume] in 3 03/22/2020 [facility] Blood mg/dL 09:27</td><td> Health Care Bilirubin - Corporation Total </td><td> 0.6
(0.2-1.3) mg/dL </td> Proteins - Total 7.1 g/dL 6.4-8. <td> [place] 3 g/dL 03/22/2020 [facility] 09:27</td><td> Health Care Proteins - Corporation Total </td><td> 7.1
(6.4-8.3) g/dL </td> Albumin 3.5 g/dL 3.4-4. <td> [place] [Mass/volume] in 8 g/dL 03/22/2020 [facility] Serum or Plasma 09:27</td><td> Health Ca re Albumin Corporation </td><td> 3.5
(3.4-4.8) g/dL </td> Calcium 9.3 mg/dL 8.6-10 <td> [place] [Mass/volume] in .2 03/22/2020 [facility] Blood mg/dL 09:27</td><td> Health Care Calcium Corporation </td><td> 9.3
(8.6-10.2) mg/dL </td> Alanine 23 U/L 6-55 <td> [place] aminotransferase U/L 03/22/2020 [facility] [Enzymatic 09:27</td><td> Health Care activity/volume] ALT (SGPT) Corporation in Serum or </td><td> Plasma 23
(6-55) U/L </td> Aspartate 39 U/L 4-35 <td> [place] aminotransferase U/L 03/22/2020 [facility] [Enzymatic 09:27</td><td> Health Care activity/volume] AST (SGOT) Corporation in Serum or </td><td><para Plasma graph styleCode="Maye d"> 39 H </paragraph><b r/> (4-35) U/L </td> Hemoglobin A1C 4.8 % 4.0-5. <td> [place] 6 % 03/22/2020 [facility] 09:27</td><td> Health Care Hemoglobin Corporation A1C </td><td> 4.8
(4.0-5.6) %
Increased risk for diabetes mellitus is seen in patients with HgA1C values
between 5.7-6.4%. Values > or = 6.5% are considered diagnostic of diabetes
mellitus.
Hemolytic anemias, hemoglobinopat hies, or recent transfusion may impact
HbA1c results. Clinical correlation is recommended.
=====
ESTIMATED AVERAGE GLUCOSE (eAG)
-----
RELATIONSHIP BETWEEN A1C AND eAG
=====
A1C(%) eAG(mg/dL)
6 126
7 154
8 183
9 212
10 -240
11 -269
12 -298
Source: Adapted from [place] [employer]. Standards of medical
care in diabetes-2014. Diabetes Care.2014;37(S [facility] 1):S14-S80, table 8.

(4.0-5.6) % </td> Anion gap in 11 mEq/L 7-13 <td> [place] Serum or Plasma mEq/L 03/22/2020 [facility] 09:27</td><td> Health Care Anion [employer] </td><td> 11
(7-13) mEq/L </td> Globulin 3.6 gm/dL 2.9-4. <td> [place] [Mass/volume] in 0 03/22/2020 [facility] Serum gm/dL 09:27</td><td> [facility] Care Globulin [employer] </td><td> 3.6
(2.9-4.0) gm/dL </td> Icteric index of Non <td> [place] Serum or Plasma Icteric 03/22/2020 [facility] 09:27</td><td> Health Care Icteric Index [employer] </td><td> Non Icteric
</td> Hemolysis index No <td> [place] of Serum or Hemolysis 03/22/2020 [facility] Plasma 09:27</td><td> Health Care Hemolysis Corporation Index </td><td> No Hemolysis
</td> Lipemic index of No Lipemia <td> [place] Serum or Plasma 03/22/2020 [facility] 09:27</td><td> Health Care Lipemia [employer] </td><td> No Lipemia
</td> ID Date Data Source [id number] 03/22/2020 06:33:[address] [facility] Name Value Range Interpretation Code Description Data Brittany rce(s) Supporting Document(s ) SARS-COV-2 [place] RNA RT-PCR [facility] This lab was ordered by [facility] and reported by [facility]. ID Date Data Source [id number] 02/16/2020 07:08:00 PM EDT [facility] Name Value Range Interpretation Description Data Sup porting Code Source(s) Document(s ) SARS [facility] coronavirus 2 RNA This lab was ordered by [facility] and reported by [facility]. ID Date Data Source [id number] 01/27/2020 07:21:00 [facility] Name Value Range Interpretation Code Description Data Brittany rce(s) Supporting Document(s ) SARS-COV-2 [place] RNA RT-PCR [facility] This lab was ordered by [facility] and reported by [facility]. ID Date Data Source [id number] 01/16/2020 10:46:40 AM EDT [facility] [id number] [facility] Name Value Range Interpretation Description Data Source(s ) Supporting Code Document(s ) No Results Normal (applies < [place] information to non-numeric align="left">< [facility]) content Care this episode. styleCode="[facility] d"> No Results information exists for this episode.
< /content></th> ID Date Data Source [id number] 01/13/2020 12:00:00 AM EDT [facility] [employer] Name Value Range Interpretation Code Description Data Brittany rce(s) Supporting Document(s ) SARS-COV-2 [place] RNA RT-PCR [facility] This lab was ordered by [facility] and reported by [facility]. ID Date Data Source [id number] 11/30/2019 12:00:00 AM EDT [facility] Name Value Range Interpretation Code Description Data Brittany rce(s) Supporting Document(s ) SARS-COV-2 [place] RNA RT-PCR [facility] This lab was ordered by [facility] and reported by [facility]. Procedure Vital Signs ID Date Data Source UNK Name Value Range Interpretation Code Description Data Source(s) Diastolic blood 84 {} Normal (applies to 84 {} [place] pressure non-numeric results) [facility] Systolic blood 124 {} Normal (applies to 124 {} [place] pressure non-numeric results) [facility] First Respiration 18.0000 {} Normal (applies to 18.0000 {} [place] rate Set non-numeric results) [facility] Heart rate 79.0000 {} Normal (applies to 79.0000 {} [place] non-numeric results) [facility] Body temperature 98.4000 {} Normal (applies to 98.4000 {} [place] non-numeric results) [facility] wt - obtain Normal (applies to {} [place] non-numeric results) [facility] weight - kg 205.0000 {} Normal (applies to 205.0000 {} [place] non-numeric results) [facility] on Diastolic blood 67 {} Normal (applies to 67 {} [place] pressure non-numeric results) [facility] Systolic blood 118 {} Normal (applies to 118 {} [place] pressure non-numeric results) [facility] on First Respiration 18.0000 {} Normal (applies to 18.0000 {} [place] rate Set non-numeric results) [facility] on Heart rate 73.0000 {} Normal (applies to 73.0000 {} [place] non-numeric results) [facility] on Body temperature 98.2000 {} Normal (applies to 98.2000 {} [place] non-numeric results) [facility] on wt - obtain Normal (applies to {} [place] non-numeric results) [facility] on weight - kg 90.9090 {} Normal (applies to 90.9090 {} [place] non-numeric results) [facility] on Patient Treatment Plan of Care Planned Activity Planned Date Details Description Data Source (s) Zofran 4mg/2mL ([place] 12/01/2019 12:53:57 [facility] EDT [facility] Zofran 4mg/2mL ([place] 12/01/2019 12:53:57 [facility] EDT [facility] Dextrose 50% Syringe 11/30/2019 10:42:29 [facility] EDT [facility] Dextrose 50% Syringe 11/30/2019 10:42:29 [facility] EDT [facility] 0.9% NaCl IV 11/30/2019 09:20:48 [facility] EDT [facility] 0.9% NaCl IV 11/30/2019 09:20:48 [facility] EDT [facility] Care Cor poration
[2020-05-03] MEDS ORDERED: ACETAMINOPHEN 325 MG TABLET (FP) PO ONE (08:03)
[2020-05-03] MEDS ORDERED: ACETAMINOPHEN 325 MG TABLET (FP) ONE (08:28)
[2020-05-03 09:25] LABS: EPI CELLS 10 /uL (0-25.1); HYALINE CASTS 2 /uL (0-3.1); PH,URINE 6.5 (5.0-8.0); URINE APPEARANCE TURBID; URINE BACTERIA 278 /uL (0-1359); URINE BILIRUBIN NEGATIVE (NEGATIVE); URINE COLOR YELLOW; URINE GLUCOSE (UA) NEGATIVE (NEGATIVE); URINE KETONE NEGATIVE (NEGATIVE); URINE LEUK ESTERASE 3+ (NEGATIVE); URINE NITRITE NEGATIVE (NEGATIVE); URINE PROTEIN 1+ (NEGATIVE); URINE RBC 411 /uL (0-23.9); URINE WBC 8014 /uL (0-25.8)
--- NOTE | 2020-05-03 09:38 | PDOC ---
Attending Attestation - Resident Resident Name: Edd Wilder - ED Attending Attestation I have performed the following: I have examined & evaluated the patient, The case was reviewed & discussed with the resident, I agree w/resident's findings & plan, Exceptions are as noted - HPI HPI: 05/03/20 09:27 25 yo F p/w mildfrontal headache x2 weeks after starting an herbal "detox tea" (IASO natural detox instant herbal tea). Denies fevers. Also reporting urinary frequency, urgency and dysuria which she states feels similar to previous UTIs. Denies abd pain. Denies n/v. - Physicial Exam PE: 05/03/20 09:29 General: well appearing Abdomen: obese limiting exam, soft, nt, no rebound, no guarding Neuro: awake, alert, speech fluent, face symmetric, gait steady, no focal deficits - Medical Decision Making 05/03/20 09:30 25 yo F with headache, likely tension vs. migraine possibly related to herbal tea (ingredients listed soluble dextrin fiber, chamomile extract and "all natural extracts"), no signs/symptoms concerning for ICH. BP elevated however patient just over 6 weeks and given symptom duration of 2 weeks without any neurological deficits or complaints very unlikely pre-eclampsia however will recheck BP after pain control. Will also r/o UTI. Plan: -urine -tylenol -reassess, if BP improves will d/c +/- abx (pending results of urine) with strict return precautions, recommend LEGAL ASSOCIATE and PMD f/u and encouraged patient to d/c herbal tea as symptoms began after starting it and while the ingredients listed do not appear to have serious adverse effects also lists natural extracts with specifically identifying substances This clinical encounter is taking place during a federal and state health care emergency attributable to the novel [place] Virus pandemic. The [employer] of the Department of Health and Human Services has declared, pursuant to the Public Health Service Act 319F-3 (42 U.S.C. 247d-6d), that a covered persons activities related to medical countermeasures against COVID-19 will be immune from liability under Federal and State law. 05/03/20 10:07 UA concerning for UTI. BP improved and pt now normotensive. Will d/c with return precautions and rx for abx, recommend LEGAL ASSOCIATE and PMD f/u Discharge - Discharge Information Problems reviewed: Yes Clinical Impression/Diagnosis: UTI (urinary tract infection) Qualifiers: Urinary tract infection type: acute cystitis Hematuria presence: with hematuria Qualified Code(s): N30.01 - Acute cystitis with hematuria Condition: Stable Disposition: HOME - Additional Discharge Information Prescriptions: Cephalexin [Keflex] 500 mg PO BID 7 Days #14 capsule - Follow up/Referral Referrals: Lori Gonzales MD [Primary Care Provider] - - Patient Discharge Instructions Patient Printed Discharge Instructions: DI for Urinary Tract Infection (UTI) Additional Instructions: You were seen in the ER for a urinary tract infection. Please take the prescribed antibiotics as directed, with food. Return to the ER if you develop high fevers, chest pain, difficulty breathing, or intractable vomiting. Follow up with your primary care provider as soon as possible, in the next 2-3 days. - Post Discharge Activity
[2020-05-03 09:52] LABS: HCG,QUALITATIVE URINE Negative
[2020-05-03 10:01] VITALS: BP 124/82
--- NOTE | 2020-05-03 10:01 | PDOC ---
History of Present Illness - General Chief Complaint: Headache Stated Complaint: HEADACHE,CHILLS Time Seen by Provider: 05/03/20 08:10 History Source: Patient Past History - Medical History Allergies/Adverse Reactions: Allergies Allergy/AdvReac Type Severity Reaction Status Date / Time No Known Allergies Allergy Verified 03/21/20 13:55 Home Medications: Ambulatory Orders Cephalexin [Keflex] 500 mg PO BID 7 Days #14 capsule 05/03/20 Heparin - 5,000 unit SQ DAILY 05/03/20 Asthma: No Cancer: No Cardiac Disorders: No COPD: No Diabetes: No HTN: No Seizures: No Thyroid Disease: No Other medical history: "blood clots in my brain" - Reproductive History Is Patient Now?: No (#): 3 Para: 5 Cervical CA: No Dysfunctional Uterine Bleeding: No Ectopic : No Endometrial CA: No Polycystic Ovaries: No Therapeutic (s) & number: No Tubal Ligation: No - Immunization History Immunization Up to Date: Yes - Psycho-Social/Smoking History Smoking Status: No Smoking History: Never smoked Have you smoked in the past 12 months: No Number of Cigarettes Smoked Daily: 0 - Substance Abuse Hx (Audit-C & DAST Scrn) How often the patient has a drink containing alcohol: Never Score: In Men: 4 or > Positive; In Women: 3 or > Positive: 0 Screen Result (Pos requires Nsg. Audit-10AR): Negative *Physical Exam - Vital Signs Last Vital Signs Temp Pulse Resp BP Pulse Ox 98.1 F 90 18 142/102 H 97 05/03/20 07:34 05/03/20 07:34 05/03/20 07:34 05/03/20 07:34 05/03/20 07:34 ED Treatment Course - ADDITIONAL ORDERS Additional order review: Laboratory Results 05/03/20 05/03/20 08:33 07:44 POC Glucometer 86 Urine Color Yellow Urine Appearance Turbid Urine pH 6.5 Ur Specific [place] 1.025 Urine Protein 1+ H Urine Glucose (UA) Negative Urine Ketones Negative Urine Blood 2+ H Urine Nitrite Negative Urine Bilirubin Negative Urine Urobilinogen 1.0 Ur Leukocyte Esterase 3+ H Urine WBC (Auto) 8014 Urine RBC (Auto) 411 Urine Casts (Auto) 2 U Epithel Cells (Auto) 10 Urine Bacteria (Auto) 278 Urine HCG, Qual Negative 05/03/20 07:44 POC Glucometer 86 - Medications Given in the ED: ED Medications Discontinued Medications Generic Name Dose Route Start Last Admin Trade Name Osbaldo PRN Reason Stop Dose Admin Acetaminophen 650 mg 05/03/20 08:03 05/03/20 08:29 Tylenol - PO 05/03/20 08:04 650 mg ONCE ONE Administration Discharge - Discharge Information Problems reviewed: Yes Clinical Impression/Diagnosis: UTI (urinary tract infection) Qualifiers: Urinary tract infection type: acute cystitis Hematuria presence: with hematuria Qualified Code(s): N30.01 - Acute cystitis with hematuria Condition: Stable Disposition: HOME - Admission No - Follow up/Referral Referrals: Lori Gonzales MD [Primary Care Provider] - - Patient Discharge Instructions Patient Printed Discharge Instructions: DI for Urinary Tract Infection (UTI) Additional Instructions: You were seen in the ER for a urinary tract infection. Please take the prescribed antibiotics as directed, with food. Return to the ER if you develop high fevers, chest pain, difficulty breathing, or intractable vomiting. Follow up with your primary care provider as soon as possible, in the next 2-3 days. - Post Discharge Activity Vital Signs - Vital Signs Blood Pressure: 124/82 Blood Pressure position: Sitting
== END 2020-05-03 10:17 | disposition home or self-care (01) ==
LOC: JER 06:50
DX: N30.01 Acute cystitis with hematuria (principal)
CPT/HCPCS: 81003; 82962; 84703; 87086; 99284-25

== ENCOUNTER 2020-05-31 03:14 | Emergency (ER) | payer OTHER ==
[2020-05-31 03:31] VITALS: BMI 32.8
[2020-05-31 04:12] VITALS: TEMP 98
[2020-05-31] MEDS ORDERED: ACETAMINOPHEN 1000 MG/100 ML VIAL (NON FORMULARY) IVPB ONE (04:25)
[2020-05-31] MEDS ORDERED: SODIUM CHLORIDE 1,000 ML IV STA (04:37)
[2020-05-31] MEDS ORDERED: LIDOCAINE 5% TOPICAL PATCH TP ONE (04:37)
[2020-05-31] MEDS ORDERED: LIDOCAINE 5% TOPICAL PATCH ONE (05:22)
[2020-05-31 05:32] LABS: POTASSIUM 5.6 mmol/L (3.5-5.1)
[2020-05-31 05:34] LABS: CALCIUM 9.2 mg/dL (8.5-10.1)
[2020-05-31 05:35] LABS: ALBUMIN 3.6 g/dl (3.4-5.0)
[2020-05-31 05:38] LABS: CREATININE 0.8 mg/dL (0.55-1.3)
[2020-05-31 05:40] LABS: BILIRUBIN,TOTAL 0.5 mg/dL (0.2-1); TOT PROT 8.1 g/dl (6.4-8.2)
[2020-05-31 05:41] LABS: BASO % 0.5 % (0-2.0); EOS % 0.2 % (0-4.5); HEMATOCRIT 38.5 % (32.4-45.2); HEMOGLOBIN 12.6 GM/dL (10.7-15.3); LYMPH % 15.3 % (8-40); MCH 26.6 pg (25.7-33.7); MCHC 32.8 g/dl (32.0-36.0); MEAN CELL VOLUME 81.2 fl (80-96); MEAN PLT VOLUME 10.2 fl (7.5-11.1); MONO % 4.4 % (3.8-10.2); NEUT % 79.6 % (42.8-82.8); PLATELET COUNT 391 K/MM3 (134-434); RBC 4.74 M/mm3 (3.60-5.2); RDW 15.3 % (11.6-15.6); WHITE BLOOD COUNT 10.1 K/mm3 (4.0-10.0)
[2020-05-31 05:44] LABS: HCG,QUALITATIVE URINE Positive
[2020-05-31 05:49] LABS: EPI CELLS 9 /uL (0-25.1); HYALINE CASTS 1 /uL (0-3.1); URINE APPEARANCE CLEAR; URINE BACTERIA 184 /uL (0-1359); URINE BILIRUBIN NEGATIVE (NEGATIVE); URINE COLOR YELLOW; URINE GLUCOSE (UA) NEGATIVE (NEGATIVE); URINE KETONE NEGATIVE (NEGATIVE); URINE LEUK ESTERASE NEGATIVE (NEGATIVE); URINE NITRITE NEGATIVE (NEGATIVE); URINE PROTEIN NEGATIVE (NEGATIVE); URINE RBC 9 /uL (0-23.9); URINE UROBILINOGEN 0.2 mg/dL (0.2-1.0); URINE WBC 3 /uL (0-25.8)
[2020-05-31] MEDS ORDERED: CEFTRIAXONE 1,000 MG in DEXTROSE 5%-WATER - 50 ML IVPB ONE (05:51)
[2020-05-31] MEDS ORDERED: ACETAMINOPHEN INJECTION 100 ML IVPB ONE (05:54)
[2020-05-31] MEDS ORDERED: cefTRIAXone SODIUM 1 GM VIAL ONE (06:12)
[2020-05-31 06:42] LABS: POTASSIUM 3.8 mmol/L (3.5-5.1)
[2020-05-31 09:00] VITALS: BP 134/84; PULSE 72
[2020-05-31] MEDS ORDERED: LIDOCAINE PATCH REMOVAL MC SCH (22:00)
== END 2020-05-31 09:25 | disposition home or self-care (01) ==
LOC: JER 03:14
PROC: 3E0333Z Introduction of Anti-inflammatory into Peripheral Vein, Percutaneous Approach (ICD-10-PCS; principal; 2020-05-31)
PROC: 3E03329 Introduction of Other Anti-infective into Peripheral Vein, Percutaneous Approach (ICD-10-PCS; 2020-05-31)
PROC: 3E0337Z Introduction of Electrolytic and Water Balance Substance into Peripheral Vein, Percutaneous Approach (ICD-10-PCS; 2020-05-31)
DX: O00.80 Other ectopic pregnancy without intrauterine pregnancy (principal)
CPT/HCPCS: 36415; 76817-TC; 80053; 81003; 84132; 84702; 84703; 85025; 85730; 86850; 86900; 86901; 87086; 99284-25; J0131

== ENCOUNTER 2020-06-02 09:50 | Emergency (ER) | payer OTHER ==
[2020-06-02 10:12] VITALS: BMI 32.9
[2020-06-02] MEDS ORDERED: METHOTREXATE SODIUM/PF 25 MG/ML VIAL IM ONE (15:16)
[2020-06-02] MEDS ORDERED: ACETAMINOPHEN 325 MG TABLET (FP) PO ONE (15:56)
[2020-06-02] MEDS ORDERED: ACETAMINOPHEN 325 MG TABLET (FP) ONE (16:44)
[2020-06-02 17:29] VITALS: BP 135/84; PULSE 97; TEMP 98
== END 2020-06-02 16:50 | disposition home or self-care (01) ==
LOC: JER 09:50
DX: O00.90 Unspecified ectopic pregnancy without intrauterine pregnancy (principal)
CPT/HCPCS: 36415; 76817-TC; 84702; 99284-25; J9260

== ENCOUNTER 2020-06-06 15:15 | Emergency (ER) | payer OTHER ==
[2020-06-06 15:35] VITALS: BMI 32.9
[2020-06-06 16:17] LABS: BASO % 0.2 % (0-2.0); EOS % 0.2 % (0-4.5); HEMATOCRIT 37.2 % (32.4-45.2); HEMOGLOBIN 11.9 GM/dL (10.7-15.3); LYMPH % 13.9 % (8-40); MCH 26.2 pg (25.7-33.7); MEAN CELL VOLUME 81.8 fl (80-96); MEAN PLT VOLUME 8.5 fl (7.5-11.1); MONO % 3.3 % (3.8-10.2); NEUT % 82.4 % (42.8-82.8); PLATELET COUNT 308 K/MM3 (134-434); RBC 4.54 M/mm3 (3.60-5.2); RDW 14.6 % (11.6-15.6); WHITE BLOOD COUNT 6.5 K/mm3 (4.0-10.0)
[2020-06-06 16:49] LABS: ALBUMIN 3.7 g/dl (3.4-5.0); BLOOD UREA NITROGEN 9.7 mg/dL (7-18); CALCIUM 9.1 mg/dL (8.5-10.1)
[2020-06-06 16:52] LABS: CREATININE 0.6 mg/dL (0.55-1.3)
[2020-06-06 16:53] LABS: BILIRUBIN,TOTAL 1.2 mg/dL (0.2-1); TOT PROT 7.9 g/dl (6.4-8.2)
[2020-06-06 17:45] VITALS: BP 118/75; PULSE 83
== END 2020-06-06 17:45 | disposition home or self-care (01) ==
LOC: JERFT 15:15
DX: O00.80 Other ectopic pregnancy without intrauterine pregnancy (principal)
CPT/HCPCS: 36415; 80053; 84702; 85025; 99283-25

== ENCOUNTER 2020-11-06 17:39 | Emergency (ER) | payer OTHER ==
[2020-11-06 17:54] VITALS: TEMP 98.2; BMI 32.1
[2020-11-06 19:49] LABS: BASO % 0.2 % (0-2.0); EOS % 0.1 % (0-4.5); EPI CELLS 25 /uL (0-25.1); HEMATOCRIT 41.1 % (32.4-45.2); HEMOGLOBIN 13.4 GM/dL (10.7-15.3); HYALINE CASTS 4 /uL (0-3.1); LYMPH % 17.2 % (8-40); MCHC 32.7 g/dl (32.0-36.0); MEAN CELL VOLUME 82.6 fl (80-96); MEAN PLT VOLUME 8.7 fl (7.5-11.1); MONO % 4.3 % (3.8-10.2); NEUT % 78.2 % (42.8-82.8); PLATELET COUNT 334 K/MM3 (134-434); RBC 4.97 M/mm3 (3.60-5.2); RDW 13.8 % (11.6-15.6); URINE APPEARANCE CLEAR; URINE BACTERIA 774 /uL (0-1359); URINE BILIRUBIN NEGATIVE (NEGATIVE); URINE COLOR DK YELLOW; URINE GLUCOSE (UA) NEGATIVE (NEGATIVE); URINE KETONE 2+ (NEGATIVE); URINE LEUK ESTERASE NEGATIVE (NEGATIVE); URINE NITRITE NEGATIVE (NEGATIVE); URINE PROTEIN TRACE (NEGATIVE); URINE RBC 17 /uL (0-23.9); URINE WBC 16 /uL (0-25.8); WHITE BLOOD COUNT 6.4 K/mm3 (4.0-10.0)
[2020-11-06 19:58] LABS: INR 0.97 (0.83-1.09); PROTHROMBIN TIME (PATIENT) 11.9 SEC (9.7-13.0)
[2020-11-06 20:00] LABS: ACTIVATED PTT 29.9 SECONDS (25.2-36.5)
[2020-11-06 20:12] LABS: CALCIUM 9.5 mg/dL (8.5-10.1)
[2020-11-06 20:13] LABS: ALBUMIN 4.2 g/dl (3.4-5.0); BLOOD UREA NITROGEN 10.6 mg/dL (7-18)
[2020-11-06 20:16] LABS: CREATININE 0.8 mg/dL (0.55-1.3)
[2020-11-06 20:17] LABS: BILIRUBIN,TOTAL 0.7 mg/dL (0.2-1)
[2020-11-06 20:18] LABS: TOT PROT 8.5 g/dl (6.4-8.2)
[2020-11-06 21:41] VITALS: BP 130/71; PULSE 70
== END 2020-11-06 21:42 | disposition home or self-care (01) ==
LOC: JER 17:39
DX: O20.8 Other hemorrhage in early pregnancy (principal)
CPT/HCPCS: 36415; 76817-TC; 80053; 81003; 84702; 85025; 85610; 85730; 86850; 86900; 86901; 87077; 87086; 99284-25

== ENCOUNTER 2020-11-30 11:34 | Emergency (ER) | payer OTHER ==
[2020-11-30 11:43] VITALS: TEMP 97; BMI 28.3
[2020-11-30 12:57] LABS: EPI CELLS >36 /uL (0-25.1); HYALINE CASTS 5 /uL (0-3.1); PH,URINE 6.5 (5.0-8.0); URINE APPEARANCE CLOUDY; URINE BACTERIA 737 /uL (0-1359); URINE BILIRUBIN NEGATIVE (NEGATIVE); URINE COLOR YELLOW; URINE GLUCOSE (UA) NEGATIVE (NEGATIVE); URINE KETONE TRACE (NEGATIVE); URINE LEUK ESTERASE TRACE (NEGATIVE); URINE NITRITE NEGATIVE (NEGATIVE); URINE PROTEIN 1+ (NEGATIVE); URINE RBC 74 /uL (0-23.9); URINE WBC 31 /uL (0-25.8)
[2020-11-30 13:40] VITALS: BP 117/71; PULSE 81
== END 2020-11-30 13:45 | disposition home or self-care (01) ==
LOC: JER 11:34
DX: O03.9 Complete or unspecified spontaneous abortion without complication (principal)
CPT/HCPCS: 36415; 81003; 84702; 99283-25

== ENCOUNTER 2021-01-11 19:18 | Emergency (ER) | payer OTHER ==
[2021-01-11 19:31] VITALS: BP 129/74; PULSE 78; TEMP 98.4; BMI 33.6
[2021-01-11] MEDS ORDERED: ACETAMINOPHEN 500 MG TABLET (FP) PO ONE (20:38)
[2021-01-11] MEDS ORDERED: LIDOCAINE 5% TOPICAL PATCH TP ONE (20:39)
[2021-01-11] MEDS ORDERED: LIDOCAINE 5% TOPICAL PATCH ONE (21:12)
[2021-01-11] MEDS ORDERED: ACETAMINOPHEN 325 MG TABLET (FP) ONE (21:12)
[2021-01-11] MEDS ORDERED: LIDOCAINE PATCH REMOVAL MC SCH (22:00)
[2021-01-11 23:17] LABS: INR 0.97 (0.83-1.09)
== END 2021-01-11 23:57 | disposition home or self-care (01) ==
LOC: JER 19:18
DX: M54.5 Low back pain (principal)
CPT/HCPCS: 36415; 70450-TC; 72125-TC; 72130-TC; 84703; 85610; 99285-25; Q9967

== ENCOUNTER 2021-07-20 02:08 | Inpatient (IN) | payer OTHER ==
[2021-07-20 02:14] VITALS: BMI 30.1
[2021-07-20] MEDS ORDERED: ACETAMINOPHEN 325 MG TABLET (FP) PO ONE (03:13)
[2021-07-20] MEDS ORDERED: ACETAMINOPHEN 325 MG TABLET (FP) ONE ×2 (04:46→13:24)
[2021-07-20 07:26] LABS: BASO % 0.1 % (0-2.0); EOS % 0.2 % (0-4.5); HEMATOCRIT 37.7 % (32.4-45.2); HEMOGLOBIN 12.2 GM/dL (10.7-15.3); LYMPH % 10.2 % (8-40); MCH 26.2 pg (25.7-33.7); MCHC 32.4 g/dl (32.0-36.0); MEAN CELL VOLUME 80.9 fl (80-96); MONO % 6.2 % (3.8-10.2); NEUT % 83.3 % (42.8-82.8); PLATELET COUNT 217 10^3/uL (134-434); RBC 4.66 M/mm3 (3.60-5.2); RDW 14.9 % (11.6-15.6)
[2021-07-20 07:33] LABS: INR 0.92 (0.83-1.09); PROTHROMBIN TIME (PATIENT) 10.3 SEC (9.7-13.0)
[2021-07-20 07:35] LABS: ACTIVATED PTT 29.7 SECONDS (25.2-36.5)
[2021-07-20 07:40] LABS: CHLORIDE 107 mmol/L (98-107); SODIUM 138 mmol/L (136-145)
[2021-07-20 07:43] LABS: CALCIUM 8.5 mg/dL (8.5-10.1)
[2021-07-20 07:44] LABS: ALBUMIN 3.7 g/dl (3.4-5.0); ANION GAP 7 MMOL/L (8-16); BLOOD UREA NITROGEN 7.5 mg/dL (7-18); CO2 25 mmol/L (21-32); GLUCOSE,RANDOM 82 mg/dL (74-106)
[2021-07-20 07:47] LABS: CREATININE 0.6 mg/dL (0.55-1.3); SGOT/AST 11 U/L (15-37); SGPT/ALT 18 U/L (13-61)
[2021-07-20 07:49] LABS: BILIRUBIN,TOTAL 0.9 mg/dL (0.2-1); TOT PROT 7.2 g/dl (6.4-8.2)
[2021-07-20 07:50] LABS: ALK PHOS 53 U/L (45-117)
[2021-07-20 07:54] VITALS: BP 116/82; PULSE 90; TEMP 99.1
[2021-07-20 08:12] LABS: HCG,QUALITATIVE URINE Negative
[2021-07-20 08:47] LABS: EPI CELLS 5 /uL (0-25.1); HYALINE CASTS 0 /uL (0-3.1); PH,URINE 5.5 (5.0-8.0); URINE APPEARANCE CLEAR; URINE BACTERIA 35 /uL (0-1359); URINE BILIRUBIN NEGATIVE (NEGATIVE); URINE COLOR YELLOW; URINE GLUCOSE (UA) NEGATIVE (NEGATIVE); URINE KETONE NEGATIVE (NEGATIVE); URINE LEUK ESTERASE NEGATIVE (NEGATIVE); URINE NITRITE NEGATIVE (NEGATIVE); URINE PROTEIN NEGATIVE (NEGATIVE); URINE RBC 2 /uL (0-23.9); URINE UROBILINOGEN 0.2 mg/dL (0.2-1.0); URINE WBC 2 /uL (0-25.8)
[2021-07-20] MEDS ORDERED: ACETAMINOPHEN 1000 MG/100 ML BAG IVPB ONE (12:04)
[2021-07-20] MEDS ORDERED: ASPIRIN 325 MG ENTERIC COATED TABLET (FP) PO ONE (12:17)
[2021-07-20] MEDS ORDERED: POTASSIUM CHLORIDE TABS 20 MEQ TABLET.ER (FP) PO ONE ×2 (12:26→13:02)
[2021-07-20] MEDS ORDERED: ASPIRIN 325 MG ENTERIC COATED TABLET (FP) ONE (13:02)
[2021-07-20] MEDS ORDERED: ACETAMINOPHEN INJECTION 100 ML IVPB ONE (13:03)
[2021-07-20] MEDS ORDERED: ACETAMINOPHEN 325 MG TABLET (FP) PO PRN (13:28)
[2021-07-20 13:30] LABS: CHOLESTEROL 154 mg/dL (50-200); TRIGLYCERIDES 80 mg/dL (0-150)
[2021-07-20 13:32] LABS: LDL CHOLESTEROL (ONLY SJRH) 86 mg/dL (5-100)
[2021-07-20 13:33] LABS: HDL CHOLESTEROL 51 mg/dL (40-60)
[2021-07-21] MEDS ORDERED: ENOXAPARIN NA (PORCINE) 40 MG/0.4 ML DISP.SYRIN SQ SCH (10:00)
== END 2021-07-20 20:25 | disposition left against medical advice (07) | DRG 54 ==
LOC: JER 02:08 → JERBED 11:59
PROVIDERS: ADMIT Internal Medicine
DX: R51.9 Headache, unspecified (principal); G82.20 Paraplegia, unspecified; E87.6 Hypokalemia; U07.1 COVID-19; R42 Dizziness and giddiness; R53.1 Weakness
CPT/HCPCS: 36415; 70450-TC; 80053; 80061; 81003; 82550; 84484; 84703; 85025; 85610; 85730; 87086; 87804; 93005; 93010; 99285-25; C9803; U0003; U0005

== ENCOUNTER 2021-08-08 14:05 | Emergency (ER) | payer OTHER ==
[2021-08-08 14:10] VITALS: TEMP 98.3; BMI 31.5
[2021-08-08] MEDS ORDERED: ACETAMINOPHEN 500 MG TABLET (FP) PO ONE (15:44)
[2021-08-08] MEDS ORDERED: ACETAMINOPHEN 325 MG TABLET (FP) ONE (15:53)
[2021-08-08 16:16] LABS: EPI CELLS 11 /uL (0-25.1); HYALINE CASTS 1 /uL (0-3.1); URINE APPEARANCE CLEAR; URINE BACTERIA 13 /uL (0-1359); URINE BILIRUBIN NEGATIVE (NEGATIVE); URINE COLOR YELLOW; URINE GLUCOSE (UA) NEGATIVE (NEGATIVE); URINE KETONE TRACE (NEGATIVE); URINE LEUK ESTERASE TRACE (NEGATIVE); URINE NITRITE NEGATIVE (NEGATIVE); URINE PROTEIN 1+ (NEGATIVE); URINE RBC 17 /uL (0-23.9); URINE UROBILINOGEN 0.2 mg/dL (0.2-1.0); URINE WBC 6 /uL (0-25.8)
[2021-08-08 16:24] LABS: ALBUMIN 4.3 g/dl (3.4-5.0); CALCIUM 10.1 mg/dL (8.5-10.1)
[2021-08-08 16:25] LABS: BLOOD UREA NITROGEN 8.7 mg/dL (7-18)
[2021-08-08 16:27] LABS: CREATININE 0.8 mg/dL (0.55-1.3)
[2021-08-08 16:29] LABS: BILIRUBIN,TOTAL 0.8 mg/dL (0.2-1); TOT PROT 8.8 g/dl (6.4-8.2)
[2021-08-08 17:27] LABS: BASO % 0.1 % (0-2.0); EOS % 0.4 % (0-4.5); HEMATOCRIT 41.6 % (32.4-45.2); HEMOGLOBIN 13.8 GM/dL (10.7-15.3); MCH 26.7 pg (25.7-33.7); MCHC 33.3 g/dl (32.0-36.0); MEAN CELL VOLUME 80.3 fl (80-96); MEAN PLT VOLUME 8.4 fl (7.5-11.1); MONO % 4.6 % (3.8-10.2); NEUT % 75.9 % (42.8-82.8); PLATELET COUNT 329 10^3/uL (134-434); RBC 5.18 M/mm3 (3.60-5.2); RDW 14.5 % (11.6-15.6)
[2021-08-08 17:50] LABS: BLOOD UREA NITROGEN 9.1 mg/dL (7-18); CALCIUM 9.6 mg/dL (8.5-10.1)
[2021-08-08 17:53] LABS: CREATININE 0.7 mg/dL (0.55-1.3)
[2021-08-08 17:55] LABS: BILIRUBIN,TOTAL 0.8 mg/dL (0.2-1); TOT PROT 8.2 g/dl (6.4-8.2)
[2021-08-08 18:00] LABS: ACTIVATED PTT 29.7 SECONDS (25.2-36.5); INR 1.07 (0.83-1.09); PROTHROMBIN TIME (PATIENT) 12.3 SEC (9.7-13.0)
[2021-08-08] MEDS ORDERED: LIDOCAINE HCL 1%, 10 MG/ML (20ML VIAL) ONE (20:05)
[2021-08-08 20:21] VITALS: BP 120/86; PULSE 86
[2021-08-08 21:11] LABS: SYPHILIS W/ RPR CONF NON-REACTIVE (NONREACTIVE)
[2021-08-08 21:40] LABS: HIV INTERPRETATION NEGATIVE (NEGATIVE)
== END 2021-08-08 20:25 | disposition home or self-care (01) ==
LOC: JER 14:05
DX: R10.32 Left lower quadrant pain (principal); Z20.2 Contact with and (suspected) exposure to infections with a predominantly sexual mode of transmission
CPT/HCPCS: 36415; 76830-TC; 80053; 81003; 84703; 85025; 85610; 85730; 86780; 87086; 87186; 87389; 87491; 87591; 87661; 96372; 99284-25

== ENCOUNTER 2021-08-19 12:42 | Emergency (ER) | payer OTHER ==
[2021-08-19 13:13] VITALS: BP 122/69; PULSE 101; TEMP 98.6; BMI 30.1
[2021-08-19 14:30] LABS: URINE APPEARANCE CLEAR; URINE BILIRUBIN NEGATIVE (NEGATIVE); URINE COLOR YELLOW; URINE GLUCOSE (UA) NEGATIVE (NEGATIVE); URINE KETONE TRACE (NEGATIVE); URINE LEUK ESTERASE NEGATIVE (NEGATIVE); URINE NITRITE NEGATIVE (NEGATIVE); URINE PROTEIN NEGATIVE (NEGATIVE); URINE UROBILINOGEN 0.2 mg/dL (0.2-1.0)
== END 2021-08-19 17:42 | disposition home or self-care (01) ==
LOC: JERFT 12:42
DX: N83.201 Unspecified ovarian cyst, right side (principal); Z32.01 Encounter for pregnancy test, result positive
CPT/HCPCS: 36415; 76817-TC; 81003; 84702; 84703; 99284-25

== ENCOUNTER 2021-08-30 20:06 | Emergency (ER) | payer OTHER ==
[2021-08-30 20:19] VITALS: BP 116/78; PULSE 97; TEMP 98.7; BMI 31.8
[2021-08-30] MEDS ORDERED: METOCLOPRAMIDE HCL INJECTION 10 MG/2 ML VIAL IVPB ONE (21:54)
[2021-08-30] MEDS ORDERED: METOCLOPRAMIDE HCL INJECTION 10 MG/2 ML VIAL ONE (22:01)
[2021-08-30 22:14] LABS: EPI CELLS 13 /uL (0-25.1); HYALINE CASTS 0 /uL (0-3.1); PH,URINE 6.5 (5.0-8.0); URINE APPEARANCE CLEAR; URINE BACTERIA 196 /uL (0-1359); URINE BILIRUBIN NEGATIVE (NEGATIVE); URINE COLOR YELLOW; URINE GLUCOSE (UA) NEGATIVE (NEGATIVE); URINE KETONE NEGATIVE (NEGATIVE); URINE LEUK ESTERASE TRACE (NEGATIVE); URINE NITRITE NEGATIVE (NEGATIVE); URINE PROTEIN NEGATIVE (NEGATIVE); URINE RBC 2 /uL (0-23.9); URINE UROBILINOGEN 0.2 mg/dL (0.2-1.0); URINE WBC 3 /uL (0-25.8)
[2021-08-30 22:22] LABS: BASO % 0.1 % (0-2.0); EOS % 0.2 % (0-4.5); HEMATOCRIT 37.5 % (32.4-45.2); LYMPH % 18.8 % (8-40); MCH 25.8 pg (25.7-33.7); MEAN CELL VOLUME 80.6 fl (80-96); MEAN PLT VOLUME 8.5 fl (7.5-11.1); MONO % 5.1 % (3.8-10.2); NEUT % 75.8 % (42.8-82.8); PLATELET COUNT 278 10^3/uL (134-434); RBC 4.65 M/mm3 (3.60-5.2); RDW 14.3 % (11.6-15.6); WHITE BLOOD COUNT 8.4 K/mm3 (4.0-10.0)
[2021-08-30 22:26] LABS: INR 1.01 (0.83-1.09); PROTHROMBIN TIME (PATIENT) 11.6 SEC (9.7-13.0)
[2021-08-30 22:29] LABS: ACTIVATED PTT 29.6 SECONDS (25.2-36.5)
[2021-08-30 22:39] LABS: CALCIUM 9.5 mg/dL (8.5-10.1)
[2021-08-30 22:40] LABS: ALBUMIN 3.8 g/dl (3.4-5.0); BLOOD UREA NITROGEN 10.5 mg/dL (7-18)
[2021-08-30 22:43] LABS: CREATININE 0.6 mg/dL (0.55-1.3)
[2021-08-30 22:44] LABS: BILIRUBIN,TOTAL 0.5 mg/dL (0.2-1); TOT PROT 7.9 g/dl (6.4-8.2)
[2021-08-31] MEDS ORDERED: ONDANSETRON 4 MG/2 ML VIAL IVPUSH ONE (00:28)
[2021-08-31] MEDS ORDERED: ONDANSETRON 4 MG/2 ML VIAL ONE (00:31)
== END 2021-08-31 02:23 | disposition home or self-care (01) ==
LOC: JER 20:06
PROC: 3E033GC Introduction of Other Therapeutic Substance into Peripheral Vein, Percutaneous Approach (ICD-10-PCS; principal; 2021-08-30)
PROC: 3E033GC Introduction of Other Therapeutic Substance into Peripheral Vein, Percutaneous Approach (ICD-10-PCS; 2021-08-30)
DX: O21.0 Mild hyperemesis gravidarum (principal); Z3A.19 19 weeks gestation of pregnancy
CPT/HCPCS: 36415; 76817-TC; 80053; 81003; 84702; 85025; 85610; 85730; 96374; 96375; 99284-25

== ENCOUNTER 2022-10-10 15:00 | Emergency (ER) | payer OTHER ==
[2022-10-10 15:09] VITALS: BP 123/73; PULSE 81; RESP 18; TEMP 98; BMI 32.9
[2022-10-10] MEDS ORDERED: ACETAMINOPHEN 1000 MG/100 ML BAG IVPB ONE (16:23)
[2022-10-10 16:41] LABS: BASO % 0.1 % (0-2.0); EOS % 0.3 % (0-4.5); HEMATOCRIT 36.9 % (32.4-45.2); HEMOGLOBIN 12.1 GM/dL (10.7-15.3); LYMPH % 20.9 % (8-40); MCH 26.2 pg (25.7-33.7); MCHC 32.9 g/dl (32.0-36.0); MEAN CELL VOLUME 79.7 fl (80-96); MEAN PLT VOLUME 8.6 fl (7.5-11.1); NEUT % 73.7 % (42.8-82.8); PLATELET COUNT 266 10^3/uL (134-434); RBC 4.62 M/mm3 (3.60-5.2)
[2022-10-10 16:42] LABS: EPI CELLS >36 /uL (0-25.1); HYALINE CASTS 1 /uL (0-3.1); URINE APPEARANCE TURBID; URINE BACTERIA 394 /uL (0-1359); URINE BILIRUBIN NEGATIVE (NEGATIVE); URINE COLOR RED; URINE GLUCOSE (UA) NEGATIVE (NEGATIVE); URINE KETONE NEGATIVE (NEGATIVE); URINE LEUK ESTERASE 1+ (NEGATIVE); URINE NITRITE NEGATIVE (NEGATIVE); URINE PROTEIN 2+ (NEGATIVE); URINE RBC 15662 /uL (0-23.9); URINE WBC 266 /uL (0-25.8)
[2022-10-10] MEDS ORDERED: ACETAMINOPHEN INJECTION 100 ML IVPB ONE (17:18)
[2022-10-10 17:44] LABS: ALBUMIN 3.8 g/dl (3.4-5.0); CALCIUM 9.1 mg/dL (8.5-10.1)
[2022-10-10 17:47] LABS: CREATININE 0.6 mg/dL (0.55-1.3)
[2022-10-10 17:50] LABS: BILIRUBIN,TOTAL 0.5 mg/dL (0.2-1); TOT PROT 7.2 g/dl (6.4-8.2)
== END 2022-10-10 20:30 | disposition home or self-care (01) ==
LOC: JER 15:00
PROC: 3E033NZ Introduction of Analgesics, Hypnotics, Sedatives into Peripheral Vein, Percutaneous Approach (ICD-10-PCS; principal; 2022-10-10)
DX: R07.89 Other chest pain (principal)
CPT/HCPCS: 36415; 71275-TC; 80053; 81003; 84703; 85025; 85379; 87086; 93005; 93010; 96374; 99285-25; Q9967

== ENCOUNTER 2022-11-29 08:46 | Emergency (ER) | payer OTHER ==
[2022-11-29 08:52] VITALS: BMI 34.5
[2022-11-29] MEDS ORDERED: SODIUM CHLORIDE 0.9% 500 ML INFUS.BAG IV ONE (09:20)
[2022-11-29] MEDS ORDERED: METOCLOPRAMIDE HCL INJECTION 10 MG/2 ML VIAL IVPUSH ONE (09:20)
[2022-11-29] MEDS ORDERED: ONDANSETRON 4 MG/2 ML VIAL IVPUSH ONE (09:20)
[2022-11-29] MEDS ORDERED: ONDANSETRON 4 MG/2 ML VIAL ONE (10:13)
[2022-11-29] MEDS ORDERED: METOCLOPRAMIDE HCL INJECTION 10 MG/2 ML VIAL ONE (10:14)
[2022-11-29] MEDS ORDERED: ACETAMINOPHEN 1000 MG/100 ML BAG IVPB ONE (10:15)
[2022-11-29] MEDS ORDERED: ACETAMINOPHEN INJECTION 100 ML IVPB ONE (10:16)
[2022-11-29 11:05] LABS: HEMATOCRIT 38.1 % (32.4-45.2); HEMOGLOBIN 12.7 GM/dL (10.7-15.3); MCH 26.6 pg (25.7-33.7); MCHC 33.5 g/dl (32.0-36.0); MEAN CELL VOLUME 79.5 fl (80-96); MEAN PLT VOLUME 9.7 fl (7.5-11.1); PLATELET COUNT 244 10^3/uL (134-434); RBC 4.79 M/mm3 (3.60-5.2); RDW 14.2 % (11.6-15.6); WHITE BLOOD COUNT 7.5 K/mm3 (4.0-10.0)
[2022-11-29 11:31] LABS: POTASSIUM 4.4 mmol/L (3.5-5.1)
[2022-11-29 11:33] LABS: BLOOD UREA NITROGEN 15.6 mg/dL (7-18); CALCIUM 9.3 mg/dL (8.5-10.1)
[2022-11-29 11:34] LABS: ALBUMIN 3.6 g/dl (3.4-5.0)
[2022-11-29 11:37] LABS: CREATININE 0.8 mg/dL (0.55-1.3)
[2022-11-29 11:38] LABS: TOT PROT 7.8 g/dl (6.4-8.2)
[2022-11-29 14:23] VITALS: BP 112/73; PULSE 91; RESP 19; TEMP 98
== END 2022-11-29 14:37 | disposition home or self-care (01) ==
LOC: JERFT 08:46 → JER 08:46
PROC: 3E033GC Introduction of Other Therapeutic Substance into Peripheral Vein, Percutaneous Approach (ICD-10-PCS; principal; 2022-11-29)
PROC: 3E033GC Introduction of Other Therapeutic Substance into Peripheral Vein, Percutaneous Approach (ICD-10-PCS; 2022-11-29)
DX: R50.9 Fever, unspecified (principal); R51.9 Headache, unspecified; R07.0 Pain in throat; R05.9 Cough, unspecified; M79.10 Myalgia, unspecified site; R11.2 Nausea with vomiting, unspecified; H53.71 Glare sensitivity; H57.89 Other specified disorders of eye and adnexa; R07.89 Other chest pain; B34.9 Viral infection, unspecified; U07.1 COVID-19; G43.909 Migraine, unspecified, not intractable, without status migrainosus
CPT/HCPCS: 0241U-QW; 36415; 70450-TC; 70544-TC; 71046-TC-FY; 80053; 84703; 85027; 87070; 87086; 99285-25

== ENCOUNTER 2022-12-31 21:41 | Emergency (ER) | payer OTHER ==
[2022-12-31 21:53] VITALS: BP 122/73; PULSE 67; RESP 18; TEMP 98.1; BMI 33.6
[2022-12-31 23:29] LABS: BASO % 0.1 % (0-2.0); EOS % 0.4 % (0-4.5); HEMATOCRIT 36.8 % (32.4-45.2); HEMOGLOBIN 12.1 GM/dL (10.7-15.3); LYMPH % 27.2 % (8-40); MCH 26.1 pg (25.7-33.7); MCHC 32.9 g/dl (32.0-36.0); MEAN CELL VOLUME 79.3 fl (80-96); MEAN PLT VOLUME 8.8 fl (7.5-11.1); MONO % 5.1 % (3.8-10.2); NEUT % 67.2 % (42.8-82.8); PLATELET COUNT 277 10^3/uL (134-434); RBC 4.65 M/mm3 (3.60-5.2); RDW 14.4 % (11.6-15.6)
[2022-12-31 23:40] LABS: INR 0.98 (0.83-1.09); PROTHROMBIN TIME (PATIENT) 11.4 SEC (9.7-13.0)
[2022-12-31 23:43] LABS: ACTIVATED PTT 29.2 SECONDS (25.2-36.5)
[2022-12-31 23:48] LABS: POTASSIUM 3.8 mmol/L (3.5-5.1)
[2022-12-31 23:52] LABS: BLOOD UREA NITROGEN 12.6 mg/dL (7-18); CALCIUM 9.8 mg/dL (8.5-10.1)
[2022-12-31 23:55] LABS: CREATININE 0.7 mg/dL (0.55-1.3)
[2022-12-31 23:57] LABS: BILIRUBIN,TOTAL 0.6 mg/dL (0.2-1)
[2023-01-01] LABS: N-TERMINAL BNP 23.3 pg/ml (5-125)
[2023-01-01] MEDS ORDERED: ACETAMINOPHEN 500 MG TABLET (FP) PO ONE (01:30)
[2023-01-01] MEDS ORDERED: ACETAMINOPHEN 325 MG TABLET (FP) ONE (01:31)
[2023-01-01] MEDS ORDERED: ACETAMINOPHEN 500 MG TABLET (FP) ONE (01:32)
== END 2023-01-01 01:35 | disposition home or self-care (01) ==
LOC: JER 21:41
DX: R22.43 Localized swelling, mass and lump, lower limb, bilateral (principal); M79.661 Pain in right lower leg; M79.662 Pain in left lower leg
CPT/HCPCS: 36415; 71046-TC-FY; 80053; 83880; 84484; 84703; 85025; 85379; 85610; 85730; 86850; 86900; 86901; 93005; 93010; 93970-TC; 99285-25

== ENCOUNTER 2023-06-13 23:27 | Emergency (ER) | payer OTHER ==
[2023-06-13 23:37] VITALS: BP 135/82; PULSE 76; RESP 18; TEMP 98.5; BMI 36.5
[2023-06-14] MEDS ORDERED: TETRACAINE 0.5% OPHTH SOLN 2 ML BOTTLE ONE (00:54)
== END 2023-06-14 00:45 | disposition left against medical advice (07) ==
LOC: JER 23:27
DX: H53.8 Other visual disturbances (principal); M79.10 Myalgia, unspecified site; R42 Dizziness and giddiness; R51.9 Headache, unspecified
CPT/HCPCS: 99281-25

== ENCOUNTER 2023-06-14 16:18 | Emergency (ER) | payer OTHER ==
[2023-06-14 16:30] VITALS: BP 124/77; PULSE 70; RESP 20; TEMP 98.7; BMI 36.5
[2023-06-14] MEDS ORDERED: SODIUM CHLORIDE 0.9% 500 ML INFUS.BAG IV ONE (18:13)
[2023-06-14] MEDS ORDERED: METOCLOPRAMIDE HCL INJECTION 10 MG/2 ML VIAL IVPB ONE (18:13)
[2023-06-14] MEDS ORDERED: ACETAMINOPHEN 1000 MG/100 ML BAG IVPB ONE (18:13)
[2023-06-14] MEDS ORDERED: MECLIZINE HCL 25 MG TABLET (FP) PO ONE (18:15)
[2023-06-14] MEDS ORDERED: MECLIZINE HCL 25 MG TABLET (FP) ONE (18:17)
[2023-06-14] MEDS ORDERED: METOCLOPRAMIDE HCL INJECTION 10 MG/2 ML VIAL ONE (18:17)
[2023-06-14] MEDS ORDERED: ACETAMINOPHEN INJECTION 100 ML IVPB ONE (18:18)
[2023-06-14 19:14] LABS: BASO % 0.4 % (0-2.0); EOS % 0.2 % (0-4.5); HEMATOCRIT 32.1 % (32.4-45.2); HEMOGLOBIN 10.5 GM/dL (10.7-15.3); LYMPH % 21.1 % (8-40); MCHC 32.8 g/dl (32.0-36.0); MEAN CELL VOLUME 79.3 fl (80-96); MONO % 4.8 % (3.8-10.2); NEUT % 73.5 % (42.8-82.8); PLATELET COUNT 107 10^3/uL (134-434); RBC 4.04 M/mm3 (3.60-5.2); RDW 15.5 % (11.6-15.6); WHITE BLOOD COUNT 4.1 K/mm3 (4.0-10.0)
[2023-06-14 19:16] LABS: PH,URINE 7.5 (5.0-8.0); URINE APPEARANCE CLEAR; URINE BILIRUBIN NEGATIVE (NEGATIVE); URINE COLOR YELLOW; URINE GLUCOSE (UA) NEGATIVE (NEGATIVE); URINE KETONE NEGATIVE (NEGATIVE); URINE LEUK ESTERASE NEGATIVE (NEGATIVE); URINE NITRITE NEGATIVE (NEGATIVE); URINE PROTEIN NEGATIVE (NEGATIVE); URINE UROBILINOGEN 0.2 mg/dL (0.2-1.0)
[2023-06-14 19:56] LABS: CALCIUM 8.8 mg/dL (8.5-10.1)
[2023-06-14 19:57] LABS: MAGNESIUM 1.9 mg/dL (1.8-2.4)
[2023-06-14 20:00] LABS: CREATININE 0.7 mg/dL (0.55-1.3)
[2023-06-14 20:02] LABS: BILIRUBIN,TOTAL 0.9 mg/dL (0.2-1); TOT PROT 7.8 g/dl (6.4-8.2)
[2023-06-14 20:04] LABS: POTASSIUM 4.2 mmol/L (3.5-5.1)
[2023-06-14 20:22] LABS: BLOOD UREA NITROGEN 12.8 mg/dL (7-18)
== END 2023-06-14 20:30 | disposition home or self-care (01) ==
LOC: JER 16:18
PROC: 3E033NZ Introduction of Analgesics, Hypnotics, Sedatives into Peripheral Vein, Percutaneous Approach (ICD-10-PCS; principal; 2023-06-14)
PROC: 3E033GC Introduction of Other Therapeutic Substance into Peripheral Vein, Percutaneous Approach (ICD-10-PCS; 2023-06-14)
DX: R42 Dizziness and giddiness (principal); R51.9 Headache, unspecified; M79.10 Myalgia, unspecified site; Z20.822 Contact with and (suspected) exposure to COVID-19
CPT/HCPCS: 0241U-QW; 36415; 80053; 81003; 83735; 84443; 85025; 87086; 96374; 96375; 99284-25

== ENCOUNTER 2023-07-21 06:42 | Emergency (ER) | payer OTHER ==
[2023-07-21 07:11] VITALS: BP 112/78; PULSE 89; RESP 20; TEMP 98.6; BMI 33.8
[2023-07-21] MEDS ORDERED: IBUPROFEN 400 MG TABLET (FP) PO ONE ×2 (09:21→10:37)
[2023-07-21] MEDS ORDERED: IBUPROFEN 400 MG TABLET (FP) PO PRN (09:22)
[2023-07-21 10:14] LABS: HEMATOCRIT 40.8 % (32.4-45.2); HEMOGLOBIN 13.3 GM/dL (10.7-15.3); MCH 26.1 pg (25.7-33.7); MCHC 32.5 g/dl (32.0-36.0); MEAN CELL VOLUME 80.2 fl (80-96); MEAN PLT VOLUME 8.4 fl (7.5-11.1); PLATELET COUNT 281 10^3/uL (134-434); RBC 5.08 M/mm3 (3.60-5.2); RDW 14.4 % (11.6-15.6); WHITE BLOOD COUNT 4.9 K/mm3 (4.0-10.0)
[2023-07-21 10:28] LABS: POTASSIUM 3.6 mmol/L (3.5-5.1)
[2023-07-21 10:31] LABS: ALBUMIN 4.2 g/dl (3.4-5.0); CALCIUM 9.6 mg/dL (8.5-10.1)
[2023-07-21 10:34] LABS: CREATININE 0.7 mg/dL (0.55-1.3)
[2023-07-21 10:36] LABS: TOT PROT 8.3 g/dl (6.4-8.2)
== END 2023-07-21 13:25 | disposition home or self-care (01) ==
LOC: JER 06:42
DX: R07.89 Other chest pain (principal); J34.89 Other specified disorders of nose and nasal sinuses; J02.9 Acute pharyngitis, unspecified; J06.9 Acute upper respiratory infection, unspecified; Z20.822 Contact with and (suspected) exposure to COVID-19
CPT/HCPCS: 0241U-QW; 36415; 71046-TC-FY; 80053; 84484; 85027; 85379; 93005; 93010; 99285-25

== ENCOUNTER 2023-08-17 22:27 | Emergency (ER) | payer OTHER ==
[2023-08-17 22:34] VITALS: BP 140/76; PULSE 82; RESP 18; TEMP 98; BMI 37.5
[2023-08-18] MEDS ORDERED: ACETAMINOPHEN 1000 MG/100 ML BAG IVPB ONE (00:35)
[2023-08-18 00:52] LABS: BASO % 0.4 % (0-2.0); EOS % 0.2 % (0-4.5); HEMATOCRIT 37.2 % (32.4-45.2); HEMOGLOBIN 12.5 GM/dL (10.7-15.3); LYMPH % 27.8 % (8-40); MCH 26.6 pg (25.7-33.7); MCHC 33.5 g/dl (32.0-36.0); MEAN CELL VOLUME 79.3 fl (80-96); MEAN PLT VOLUME 8.5 fl (7.5-11.1); MONO % 5.4 % (3.8-10.2); NEUT % 66.2 % (42.8-82.8); PLATELET COUNT 292 10^3/uL (134-434); RBC 4.69 M/mm3 (3.60-5.2); RDW 14.3 % (11.6-15.6); WHITE BLOOD COUNT 5.7 K/mm3 (4.0-10.0)
[2023-08-18] MEDS ORDERED: ACETAMINOPHEN INJECTION 100 ML IVPB ONE (00:56)
[2023-08-18 00:57] LABS: PH,URINE 6.5 (5.0-8.0); URINE APPEARANCE CLEAR; URINE BILIRUBIN NEGATIVE (NEGATIVE); URINE COLOR YELLOW; URINE GLUCOSE (UA) NEGATIVE (NEGATIVE); URINE KETONE NEGATIVE (NEGATIVE); URINE LEUK ESTERASE NEGATIVE (NEGATIVE); URINE NITRITE NEGATIVE (NEGATIVE); URINE PROTEIN NEGATIVE (NEGATIVE); URINE UROBILINOGEN 0.2 mg/dL (0.2-1.0)
[2023-08-18 00:59] LABS: INR 1.05 (0.83-1.09); PROTHROMBIN TIME (PATIENT) 12.2 SEC (9.7-13.0)
[2023-08-18 01:00] LABS: HCG,QUALITATIVE URINE Negative
[2023-08-18 01:11] LABS: CHLORIDE 107 mmol/L (98-107); POTASSIUM 3.7 mmol/L (3.5-5.1); SODIUM 141 mmol/L (136-145)
[2023-08-18 01:14] LABS: ALBUMIN 3.6 g/dl (3.4-5.0); ANION GAP 8 mmol/L (4-13); BLOOD UREA NITROGEN 8.2 mg/dL (7-18); CO2 26 mmol/L (21-32); GLUCOSE,RANDOM 81 mg/dL (74-106)
[2023-08-18 01:17] LABS: CREATININE 0.7 mg/dL (0.55-1.3); SGOT/AST 15 U/L (15-37); SGPT/ALT 21 U/L (13-61)
[2023-08-18 01:18] LABS: BILIRUBIN,TOTAL 0.7 mg/dL (0.2-1); TOT PROT 7.8 g/dl (6.4-8.2)
[2023-08-18 01:20] LABS: ALK PHOS 66 U/L (45-117)
[2023-08-18] MEDS ORDERED: SODIUM CHLORIDE 1,000 ML IV STA (01:27)
[2023-08-18] MEDS ORDERED: ONDANSETRON 4 MG/2 ML VIAL IVPUSH ONE (01:27)
[2023-08-18] MEDS ORDERED: ONDANSETRON 4 MG/2 ML VIAL ONE (01:45)
== END 2023-08-18 05:24 | disposition home or self-care (01) ==
LOC: JER 22:27
PROC: 3E033NZ Introduction of Analgesics, Hypnotics, Sedatives into Peripheral Vein, Percutaneous Approach (ICD-10-PCS; principal; 2023-08-18)
PROC: 3E033GC Introduction of Other Therapeutic Substance into Peripheral Vein, Percutaneous Approach (ICD-10-PCS; 2023-08-18)
PROC: 3E0337Z Introduction of Electrolytic and Water Balance Substance into Peripheral Vein, Percutaneous Approach (ICD-10-PCS; 2023-08-18)
DX: R10.12 Left upper quadrant pain (principal); R10.32 Left lower quadrant pain; R42 Dizziness and giddiness; N93.9 Abnormal uterine and vaginal bleeding, unspecified
CPT/HCPCS: 36415; 76830-TC; 80053; 81003; 84702; 84703; 85025; 85610; 85730; 86850; 86900; 86901; 87086; 93005; 93010; 99285-25; J0131

== ENCOUNTER 2023-12-21 19:26 | Emergency (ER) | payer OTHER ==
[2023-12-21 19:32] VITALS: BP 105/61; PULSE 100; RESP 18; TEMP 98.8; BMI 27.4
[2023-12-21] MEDS ORDERED: ACETAMINOPHEN INJECTION 100 ML IVPB ONE (21:20)
[2023-12-21 21:50] LABS: HEMATOCRIT 38.3 % (32.4-45.2); HEMOGLOBIN 12.6 GM/dL (10.7-15.3); MCHC 32.8 g/dl (32.0-36.0); MEAN CELL VOLUME 79.2 fl (80-96); MEAN PLT VOLUME 8.1 fl (7.5-11.1); PLATELET COUNT 319 10^3/uL (134-434); RBC 4.83 M/mm3 (3.60-5.2)
[2023-12-21] MEDS: ACETAMINOPHEN 1000 MG/100 ML BAG IVPB ONE (21:50)
[2023-12-21] MEDS: SODIUM CHLORIDE 0.9% 500 ML INFUS.BAG IV ONE (21:51)
[2023-12-21 21:57] LABS: INR 1.08 (0.83-1.09); PROTHROMBIN TIME (PATIENT) 12.2 SEC (9.7-13.0)
[2023-12-21 21:58] LABS: EPI CELLS 29 /uL (0-25.1); HYALINE CASTS 2 /uL (0-3.1); PH,URINE 5.5 (5.0-8.0); URINE APPEARANCE CLEAR; URINE BACTERIA 255 /uL (0-1359); URINE BILIRUBIN NEGATIVE (NEGATIVE); URINE COLOR YELLOW; URINE GLUCOSE (UA) NEGATIVE (NEGATIVE); URINE KETONE NEGATIVE (NEGATIVE); URINE LEUK ESTERASE NEGATIVE (NEGATIVE); URINE NITRITE NEGATIVE (NEGATIVE); URINE PROTEIN NEGATIVE (NEGATIVE); URINE RBC 22 /uL (0-23.9); URINE WBC 19 /uL (0-25.8)
[2023-12-21 21:59] LABS: ACTIVATED PTT 28.3 SECONDS (25.2-36.5)
[2023-12-21 22:14] LABS: POTASSIUM 3.9 mmol/L (3.5-5.1)
[2023-12-21 22:16] LABS: ALBUMIN 3.8 g/dl (3.4-5.0); BLOOD UREA NITROGEN 8.8 mg/dL (7-18)
[2023-12-21 22:19] LABS: CREATININE 0.6 mg/dL (0.55-1.3)
[2023-12-21 22:21] LABS: BILIRUBIN,TOTAL 1.3 mg/dL (0.2-1); TOT PROT 7.8 g/dl (6.4-8.2)
== END 2023-12-22 02:04 | disposition home or self-care (01) ==
LOC: JER 19:26
PROC: 3E033NZ Introduction of Analgesics, Hypnotics, Sedatives into Peripheral Vein, Percutaneous Approach (ICD-10-PCS; principal; 2023-12-21)
DX: R10.32 Left lower quadrant pain (principal); N83.202 Unspecified ovarian cyst, left side
CPT/HCPCS: 36415; 76830-TC; 80053; 81003; 84703; 85027; 85610; 85730; 86850; 86900; 86901; 87086; 99284-25; J0131

== ENCOUNTER 2024-03-09 00:06 | Emergency (ER) | payer OTHER ==
[2024-03-09 00:16] VITALS: BP 142/83; PULSE 83; RESP 18; TEMP 98.6; BMI 28.3
[2024-03-09] MEDS ORDERED: ACETAMINOPHEN INJECTION 100 ML IVPB ONE (01:08)
[2024-03-09] MEDS: ACETAMINOPHEN 1000 MG/100 ML BAG IVPB ONE (01:21)
[2024-03-09 01:37] LABS: BASO % 1.2 % (0-2.0); EOS % 0.6 % (0-4.5); HEMATOCRIT 35.9 % (32.4-45.2); HEMOGLOBIN 11.6 GM/dL (10.7-15.3); LYMPH % 23.5 % (8-40); MCH 25.8 pg (25.7-33.7); MCHC 32.4 g/dl (32.0-36.0); MEAN CELL VOLUME 79.7 fl (80-96); MEAN PLT VOLUME 8.5 fl (7.5-11.1); MONO % 5.3 % (3.8-10.2); NEUT % 69.4 % (42.8-82.8); PLATELET COUNT 273 10^3/uL (134-434); RBC 4.51 M/mm3 (3.60-5.2); RDW 14.9 % (11.6-15.6); WHITE BLOOD COUNT 7.4 K/mm3 (4.0-10.0)
[2024-03-09 01:43] LABS: INR 0.95 (0.83-1.09); PROTHROMBIN TIME (PATIENT) 10.8 SEC (9.7-13.0)
[2024-03-09 01:46] LABS: ACTIVATED PTT 29.5 SECONDS (25.2-36.5)
[2024-03-09 01:54] LABS: POTASSIUM 3.7 mmol/L (3.5-5.1)
[2024-03-09 01:55] LABS: EPI CELLS 15 /uL (0-25.1); HYALINE CASTS 0 /uL (0-3.1); PH,URINE 6.5 (5.0-8.0); URINE APPEARANCE CLEAR; URINE BACTERIA 210 /uL (0-1359); URINE BILIRUBIN NEGATIVE (NEGATIVE); URINE COLOR YELLOW; URINE GLUCOSE (UA) NEGATIVE (NEGATIVE); URINE KETONE NEGATIVE (NEGATIVE); URINE LEUK ESTERASE NEGATIVE (NEGATIVE); URINE NITRITE NEGATIVE (NEGATIVE); URINE PROTEIN NEGATIVE (NEGATIVE); URINE RBC 19 /uL (0-23.9); URINE WBC 12 /uL (0-25.8)
[2024-03-09 01:56] LABS: CALCIUM 9.2 mg/dL (8.5-10.1)
[2024-03-09 01:57] LABS: ALBUMIN 3.5 g/dl (3.4-5.0)
[2024-03-09 02:00] LABS: CREATININE 0.7 mg/dL (0.55-1.3)
[2024-03-09 02:01] LABS: BILIRUBIN,TOTAL 0.4 mg/dL (0.2-1); TOT PROT 7.3 g/dl (6.4-8.2)
== END 2024-03-09 05:13 | disposition left against medical advice (07) ==
LOC: JER 00:06
PROC: 3E033NZ Introduction of Analgesics, Hypnotics, Sedatives into Peripheral Vein, Percutaneous Approach (ICD-10-PCS; principal; 2024-03-09)
DX: R51.9 Headache, unspecified (principal); H53.8 Other visual disturbances; N93.9 Abnormal uterine and vaginal bleeding, unspecified; R10.30 Lower abdominal pain, unspecified
CPT/HCPCS: 36415; 70450-TC; 71045-TC-FY; 76830-TC; 80053; 81003; 84484; 84703; 85025; 85610; 85730; 86850; 86900; 86901; 87086; 93005; 93010; 99285-25; J0131